=== PATIENT | female | born 1955 | race Caucasian/White ===

== ENCOUNTER → 2017-03-04 | Outpatient (CLI) | payer MEDICARE, MEDICAID, SELFPAY | PROVIDERS: Visit Provider Surgery | DX: K43.2 Incisional hernia without obstruction or gangrene (principal) | CPT/HCPCS: 36415; 82565; 84520 ==

== ENCOUNTER → 2017-03-05 | Outpatient (CLI) | payer MEDICARE, MEDICAID, SELFPAY | PROVIDERS: Visit Provider Surgery | DX: K43.2 Incisional hernia without obstruction or gangrene (principal) | CPT/HCPCS: 74177; Q9967 ==

== ENCOUNTER → 2017-04-29 10:41 | Outpatient (REF) | payer MEDICARE, SELFPAY ==
[2017-04-29 14:09] LABS: Amphetamine/Metha Screen,Urine Negative ng/mL (<1000); Barbiturates Screen,Urine Negative ng/mL (<200); Benzodiazepines Screen,Urine Negative ng/mL (200); Cannabinoid Screen,Urine Negative ng/mL (<50); Cocaine Screen,Urine Negative ng/g (<300); Methadone Screen,Urine Negative ng/mL (<300); Opiate Screen,Urine Negative ng/mL (<300); Phencyclidine Screen,Urine Negative ng/mL (<25)
== END ==
LOC: LAB 10:41
PROVIDERS: Visit Provider Emergency Medicine
DX: Z79.899 Other long term (current) drug therapy (principal)
CPT/HCPCS: 80305

== ENCOUNTER → 2017-05-20 14:55 | Outpatient (POV) | payer MEDICARE, SELFPAY | PROVIDERS: Family Provider Emergency Medicine; PCP Emergency Medicine; Visit Provider Internal Medicine | DX: Z00.00 Encounter for general adult medical examination without abnormal findings (principal) ==

== ENCOUNTER → 2017-06-02 12:39 | Outpatient (CLI) | payer MEDICARE, MEDICAID, SELFPAY ==
[2017-06-02 13:51] VITALS: PULSE 84; PULSE 85
== END ==
PROVIDERS: Family Provider Emergency Medicine; PCP Emergency Medicine; Visit Provider Internal Medicine
DX: R06.02 Shortness of breath (principal); J42 Unspecified chronic bronchitis; F17.210 Nicotine dependence, cigarettes, uncomplicated
CPT/HCPCS: 94060; 94640; 94726; 94729

== ENCOUNTER → 2017-07-25 10:01 | Outpatient (CLI) | payer MEDICARE, MEDICAID, SELFPAY ==
[2017-07-25 14:16] LABS: Amphetamine/Metha Screen,Urine Negative ng/mL (<1000); Barbiturates Screen,Urine Negative ng/mL (<200); Benzodiazepines Screen,Urine Negative ng/mL (200); Cannabinoid Screen,Urine Negative ng/mL (<50); Cocaine Screen,Urine Negative ng/g (<300); Methadone Screen,Urine Negative ng/mL (<300); Opiate Screen,Urine Negative ng/mL (<300); Phencyclidine Screen,Urine Negative ng/mL (<25)
== END ==
PROVIDERS: Visit Provider Emergency Medicine
DX: Z79.899 Other long term (current) drug therapy (principal)
CPT/HCPCS: 80305

== ENCOUNTER → 2017-08-22 14:32 | Outpatient (CLI) | payer MEDICARE, MEDICAID, SELFPAY | PROVIDERS: Visit Provider Nurse Practitioner Family | DX: R10.9 Unspecified abdominal pain (principal) | CPT/HCPCS: 87086 ==

== ENCOUNTER → 2017-09-09 10:40 | Outpatient (REF) | payer MEDICARE, SELFPAY ==
[2017-09-09 14:05] LABS: Basophils # 0.1 K/mm3 (0-0.2); Basophils % 0.9 % (0.1-2.0); Eosinophils # 0.3 K/mm3 (0.0-0.4); Eosinophils % 2.8 % (0.1-12.0); Hematocrit 45.4 % (37.0-47.0); Hemoglobin 14.1 g/dL (12.2-16.2); Lymphocytes # 2.2 K/mm3 (0.7-4.5); Lymphocytes % 23.9 K/mm3 (10-50); Mean Corpuscular Hemoglobin 27.6 pg (27.0-31.2); Mean Corpuscular Volume 88.9 fl (81-99); Mean Platelet Volume 9.6 fl (7.4-10.4); Monocytes # 0.4 K/mm3 (0.1-1.0); Monocytes % 4.6 % (1.7-9.3); Neutrophils # 6.1 K/mm3 (1.8-7.8); Neutrophils % 67.9 % (37.0-80.0); Platelet Count 210 K/mm3 (142-424); Red Blood Count 5.11 M/mm3 (4.20-5.40); Red Cell Distribution Width 12.6 % (11.5-17.5)
[2017-09-09 14:29] LABS: Alanine Aminotransferase 17 U/L (12-78); Albumin/Globulin Ratio 1.1 (1.1-1.8); Alkaline Phosphatase 107 U/L (46-116); Anion Gap 12.1 mEq/L (5-15); Aspartate Amino Transferase 15 U/L (15-37); Bilirubin,Total 0.3 mg/dL (0.2-1.0); Blood Urea Nitrogen 15 mg/dL (7-18); Calcium 9.1 mg/dL (8.5-10.1); Carbon Dioxide 28 mmol/L (21.0-32.0); Chloride 107 mmol/L (98-107); Creatinine,Serum 1.04 mg/dL (0.55-1.02); Estimated Glomerular Filt Rate 53 ml/min (>60); Free T4 (Free Thyroxine) 1.37 ng/dl (0.76-1.46); GFR (African American) 65 ML/MIN (>60); Globulin 3.8 gm/dl (1.3-3.2); Glucose 91 mg/dL (74-106); Potassium 4.1 mmoL/L (3.5-5.1); Sodium 143 mmol/L (136-145); Thyroid Stimulating Hormone 6.28 uIU/ml (0.358-3.740); Total Protein,Serum 7.8 gm/dL (6.4-8.2)
[2017-09-09 15:17] LABS: Erythrocyte Sedimentation Rate 17 mm/hr (0-30)
== END ==
LOC: LAB 10:40
PROVIDERS: Visit Provider Emergency Medicine
DX: J44.9 Chronic obstructive pulmonary disease, unspecified (principal); E03.9 Hypothyroidism, unspecified
CPT/HCPCS: 80053; 82652; 84439; 84443; 85025; 85651

== ENCOUNTER → 2017-10-31 12:45 | Outpatient (CLI) | payer MEDICARE, MEDICAID, SELFPAY ==
--- NOTE | 2017-10-31 12:48 | CT_ITS ---
CT lung screening EXAM: CT LUNG LOW DOSE WO CONTRAST HISTORY: Chronic tobacco use, asymptomatic ITS.REASON: CURRENT TOBACCO USE ORDERING PHYSICIAN: Wilbur Ybarra MD PATIENT AGE: 62 years COMPARISON: 10/31/2017 TECHNIQUE: The exam was performed on a GE Light Speed [address] scanner using 2.90 mGy CTDI. A low dose helical CT CHEST was performed on a multi-detector scanner. All CT scans at the facility use one or more dose reduction, viz: automated exposure control, ma/kV adjustment per patient size (including targeted exams where dose is matched to indication, i.e. head), or iterative reconstruction technique. The LDCT was performed in a facility that meets the criteria for the screening program. Data regarding this exam was submitted to ACR which is an approved registry. The order for this exam indicates that it came as a result of a lung cancer screening counseling shard decision-making visit that included all the elements required of such a visit including smoking cessation. The radiologist interpreting this exam meets the CMS criteria for the LDCT lung cancer screening program. The exam is reported using the Lung-RADS classification scale and reported to the ACR registry. NOTE: This study was performed for the specific purposes of lung cancer screening and is not an alternative to diagnostic chest CT. RADIATION DOSE: CTDI vol(CT dose Index-volume) = 2.90mG DLP (Dose Length Product) = 102.00 mGcm FINDINGS: Centrilobular emphysema with chronic coarsening of the bronchovascular markings. No change 2 mm nodular opacity right upper lobe, 3 mm nodule right lower lobe, calcified granuloma left upper lobe. No new nodules. No lobar consolidation or collapse. There is a 9 mm isodensity junction of the right and left hepatic lobe superiorly which may represent a hepatic cyst. IMPRESSION: 1. Lung RADS Category: 2, benign 2. Other findings: Centrilobular emphysema, old granulomatous disease RECOMMENDATIONS: 12 month LDCT follow-up
== END ==
PROVIDERS: PCP Emergency Medicine; Visit Provider Internal Medicine
DX: Z12.2 Encounter for screening for malignant neoplasm of respiratory organs (principal); Z87.891 Personal history of nicotine dependence

== ENCOUNTER → 2017-11-24 13:14 | Outpatient (CLI) | payer MEDICARE, MEDICAID, SELFPAY ==
[2017-11-24 15:19] LABS: Free T4 (Free Thyroxine) 1.49 ng/dl (0.76-1.46)
== END ==
PROVIDERS: Family Provider Emergency Medicine; PCP Emergency Medicine; Visit Provider Otolaryngology
DX: E03.9 Hypothyroidism, unspecified (principal)
CPT/HCPCS: 36415; 84439; 84443

== ENCOUNTER → 2017-11-26 13:54 | Outpatient (CLI) | payer MEDICARE, MEDICAID, SELFPAY ==
[2017-11-26 18:58] LABS: Amphetamine/Metha Screen,Urine Negative ng/mL (<1000); Barbiturates Screen,Urine Negative ng/mL (<200); Benzodiazepines Screen,Urine Negative ng/mL (<200); Cannabinoid Screen,Urine Negative ng/mL (<50); Cocaine Screen,Urine Negative ng/mL (<300); Methadone Screen,Urine Negative ng/mL (<300); Opiate Screen,Urine Negative ng/mL (<300); Phencyclidine Screen,Urine Negative ng/mL (<25)
== END ==
PROVIDERS: Visit Provider Emergency Medicine
DX: Z79.899 Other long term (current) drug therapy (principal)
CPT/HCPCS: 80305

== ENCOUNTER → 2017-12-02 13:37 | Outpatient (POV) | payer MEDICARE, MEDICAID, SELFPAY | PROVIDERS: Family Provider Emergency Medicine; PCP Emergency Medicine; Visit Provider Internal Medicine | DX: Z00.00 Encounter for general adult medical examination without abnormal findings (principal) ==

== ENCOUNTER → 2018-02-25 18:56 | Outpatient (CLI) | payer MEDICARE, MEDICAID, SELFPAY ==
[2018-02-25 22:36] LABS: Amphetamine/Metha Screen,Urine Negative ng/mL (<1000); Barbiturates Screen,Urine Negative ng/mL (<200); Benzodiazepines Screen,Urine Negative ng/mL (<200); Cannabinoid Screen,Urine Positive ng/mL (<50); Cocaine Screen,Urine Negative ng/mL (<300); Methadone Screen,Urine Negative ng/mL (<300); Opiate Screen,Urine Negative ng/mL (<300); Phencyclidine Screen,Urine Negative ng/mL (<25)
[2018-03-03 14:14] LABS: Alprazolam Negative (Cutoff=100); Benzodiazepines Positive ng/mL (Cutoff=100); Clonazepam Positive (.); Flurazepam Negative (Cutoff=100); Lorazepam Negative (Cutoff=100); Midazolam Negative (Cutoff=100); Temazepam Negative (Cutoff=100); Triazolam Negative (Cutoff=100)
[2018-03-04 06:17] LABS: Clonazepam Confirm 533 ng/mL (Cutoff=100)
== END ==
PROVIDERS: Visit Provider Emergency Medicine
DX: Z79.899 Other long term (current) drug therapy (principal)
CPT/HCPCS: 80305; 80346

== ENCOUNTER → 2018-04-13 17:37 | Outpatient (CLI) | payer MEDICARE, MEDICAID, SELFPAY ==
[2018-04-13 18:46] LABS: Amphetamine/Metha Screen,Urine Negative ng/mL (<1000); Barbiturates Screen,Urine Negative ng/mL (<200); Benzodiazepines Screen,Urine Negative ng/mL (<200); Cannabinoid Screen,Urine Negative ng/mL (<50); Cocaine Screen,Urine Positive ng/mL (<300); Methadone Screen,Urine Negative ng/mL (<300); Opiate Screen,Urine Negative ng/mL (<300); Phencyclidine Screen,Urine Negative ng/mL (<25)
[2018-04-18 10:11] LABS: Alprazolam Negative (Cutoff=100); Benzodiazepines Negative ng/mL (Cutoff=100); Clonazepam Negative (Cutoff=100); Flurazepam Negative (Cutoff=100); Lorazepam Negative (Cutoff=100); Midazolam Negative (Cutoff=100); Temazepam Negative (Cutoff=100); Triazolam Negative (Cutoff=100)
== END ==
PROVIDERS: Visit Provider Emergency Medicine
DX: Z79.899 Other long term (current) drug therapy (principal)
CPT/HCPCS: 80305; 80346

== ENCOUNTER → 2018-05-15 16:07 | Outpatient (CLI) | payer MEDICARE, MEDICAID, SELFPAY ==
[2018-05-15 18:10] LABS: Amphetamine/Metha Screen,Urine Negative ng/mL (<1000); Barbiturates Screen,Urine Negative ng/mL (<200); Benzodiazepines Screen,Urine Negative ng/mL (<200); Cannabinoid Screen,Urine Negative ng/mL (<50); Cocaine Screen,Urine Negative ng/mL (<300); Methadone Screen,Urine Negative ng/mL (<300); Opiate Screen,Urine Negative ng/mL (<300); Phencyclidine Screen,Urine Negative ng/mL (<25)
== END ==
PROVIDERS: Visit Provider Emergency Medicine
DX: Z79.899 Other long term (current) drug therapy (principal)
CPT/HCPCS: 80305

== ENCOUNTER → 2018-07-08 08:39 | Outpatient (CLI) | payer MEDICARE, MEDICAID, SELFPAY ==
--- NOTE | 2018-07-08 08:58 | MM_ITS ---
MM Dig screening mamm BI w/CAD CAD Screening COMPARISON: Digital mammograms with CAD 12/24/2016 and 11/01/2013 INDICATION: There is no personal or family history of breast cancer TECHNIQUE: Standard CC and MLO images were obtained. R2 CAD reviewed. FINDINGS: Diffuse heterogenic fibroglandular densities are seen throughout both breasts. There are few benign-appearing micro and macrocalcifications in each breast. There is a mole marker left breast. There is no suspicious lesion and there are no suspicious microcalcifications. IMPRESSION: Moderate diffuse breast density with no suspicious lesion seen BI-RADS Category: 2 Benign Finding(s) RECOMMENDED FOLLOW-UP: 1YR - 1 YEAR FOLLOW-UP (A letter has been sent to the patient regarding results of the study.)
== END ==
PROVIDERS: PCP Emergency Medicine; Visit Provider Emergency Medicine
DX: Z12.31 Encounter for screening mammogram for malignant neoplasm of breast (principal)
CPT/HCPCS: 77067

== ENCOUNTER → 2018-08-11 08:09 | Outpatient (CLI) | payer MEDICARE, MEDICAID, SELFPAY ==
[2018-08-12 13:10] LABS: Amphetamine/Metha Screen,Urine Negative ng/mL (<1000); Barbiturates Screen,Urine Negative ng/mL (<200); Benzodiazepines Screen,Urine Negative ng/mL (<200); Cannabinoid Screen,Urine Negative ng/mL (<50); Cocaine Screen,Urine Negative ng/mL (<300); Methadone Screen,Urine Negative ng/mL (<300); Opiate Screen,Urine Negative ng/mL (<300); Phencyclidine Screen,Urine Negative ng/mL (<25)
[2018-08-17 10:19] LABS: Alprazolam Negative (Cutoff=100); Benzodiazepines Positive ng/mL (Cutoff=100); Clonazepam Positive (.); Flurazepam Negative (Cutoff=100); Lorazepam Negative (Cutoff=100); Midazolam Negative (Cutoff=100); Temazepam Negative (Cutoff=100); Triazolam Negative (Cutoff=100)
[2018-08-18 09:48] LABS: Clonazepam Confirm 183 ng/mL (Cutoff=100)
== END ==
PROVIDERS: Visit Provider Emergency Medicine
DX: Z79.899 Other long term (current) drug therapy (principal)
CPT/HCPCS: 80305; 80346

== ENCOUNTER → 2018-11-10 14:02 | Outpatient (CLI) | payer MEDICARE, MEDICAID, SELFPAY ==
[2018-11-10 14:59] LABS: Basophils # 0.1 K/mm3 (0-0.2); Basophils % 0.7 % (0.1-2.0); Eosinophils # 0.1 K/mm3 (0.0-0.4); Eosinophils % 1.2 % (0.1-12.0); Hematocrit 44.4 % (37.0-47.0); Hemoglobin 14.6 g/dL (12.2-16.2); Lymphocytes # 2.7 K/mm3 (0.7-4.5); Lymphocytes % 23.9 % (10-50); Mean Corpuscular HGB Conc 32.8 g/dL (31.8-35.4); Mean Corpuscular Hemoglobin 28.7 pg (27.0-31.2); Mean Corpuscular Volume 87.6 fl (81-99); Mean Platelet Volume 9.3 fl (7.4-10.4); Monocytes # 0.7 K/mm3 (0.1-1.0); Monocytes % 5.9 % (1.7-9.3); Neutrophils # 7.7 K/mm3 (1.8-7.8); Neutrophils % 68.2 % (37.0-80.0); Platelet Count 235 K/mm3 (142-424); Red Blood Count 5.07 M/mm3 (4.20-5.40); Red Cell Distribution Width 13.4 % (11.5-17.5); White Blood Count 11.3 K/mm3 (4.8-10.8)
[2018-11-10 15:11] LABS: Alanine Aminotransferase 24 U/L (12-78); Albumin Level 4.3 gm/dL (3.4-5.0); Albumin/Globulin Ratio 1.2 (1.1-1.8); Alkaline Phosphatase 91 U/L (46-116); Anion Gap 14.4 mEq/L (5-15); Aspartate Amino Transferase 22 U/L (15-37); Bilirubin,Total 0.5 mg/dL (0.2-1.0); Blood Urea Nitrogen 15 mg/dL (7-18); Calcium 9.5 mg/dL (8.5-10.1); Carbon Dioxide 27 mmol/L (21.0-32.0); Chloride 105 mmol/L (98-107); Chol/HDL Ratio 4.4 (1-3.5); Cholesterol 194 mg/dL (140-200); Creatinine,Serum 1.23 mg/dL (0.55-1.02); Estimated Glomerular Filt Rate 44 ml/min (>60); Free T4 (Free Thyroxine) 1.72 ng/dl (0.76-1.46); GFR (African American) 53 ML/MIN (>60); Globulin 3.7 gm/dl (1.3-3.2); Glucose 116 mg/dL (74-106); HDL Cholesterol 44 mg/dL (29-89); LDL Cholesterol 122 mg/dL (0-130); Potassium 4.4 mmoL/L (3.5-5.1); Sodium 142 mmol/L (136-145); Triglycerides 140 mg/dL (30-200); VLDL Cholesterol 28 mg/dL (0-40)
[2018-11-10 15:58] LABS: Erythrocyte Sedimentation Rate 14 mm/hr (0-30)
[2018-11-10 16:28] LABS: Amphetamine/Metha Screen,Urine Negative ng/mL (<1000); Barbiturates Screen,Urine Negative ng/mL (<200); Benzodiazepines Screen,Urine Negative ng/mL (<200); Cannabinoid Screen,Urine Negative ng/mL (<50); Cocaine Screen,Urine Negative ng/mL (<300); Methadone Screen,Urine Negative ng/mL (<300); Opiate Screen,Urine Negative ng/mL (<300); Phencyclidine Screen,Urine Negative ng/mL (<25)
[2018-11-11 09:50] LABS: Vitamin D 25 Hydroxy 30.9 ng/mL (30.0-100.0)
== END ==
PROVIDERS: Visit Provider Emergency Medicine
DX: R53.83 Other fatigue (principal); Z79.899 Other long term (current) drug therapy
CPT/HCPCS: 80053; 80061; 80305; 82652; 84439; 84443; 85025; 85651

== ENCOUNTER → 2018-11-25 14:15 | Outpatient (CLI) | payer MEDICARE, MEDICAID, SELFPAY ==
--- NOTE | 2018-11-25 14:18 | CT_ITS ---
PROCEDURE: CT LUNG SCREENING CLINICAL INDICATION: CURRENT TOBACCO USE Fifty pack-year smoking history, asymptomatic for lung cancer COMPARISON: LUNGSCREEN CT lung screening from 10/31/2017 TECHNIQUE: The exam was performed on a GE Light Speed [address] scanner using 2.90 mGy CTDI. A low dose helical CT CHEST was performed on a multi-detector scanner. All CT scans at the facility use one or more dose reduction, viz: automated exposure control, ma/kV adjustment per patient size (including targeted exams where dose is matched to indication, i.e. head), or iterative reconstruction technique. The LDCT was performed in a facility that meets the criteria for the screening program. Data regarding this exam was submitted to ACR which is an approved registry. The order for this exam indicates that it came as a result of a lung cancer screening counseling shard decision-making visit that included all the elements required of such a visit including smoking cessation. The radiologist interpreting this exam meets the CMS criteria for the LDCT lung cancer screening program. The exam is reported using the Lung-RADS classification scale and reported to the ACR registry. NOTE: This study was performed for the specific purposes of lung cancer screening and is not an alternative to diagnostic chest CT. RADIATION DOSE: CTDI vol(CT dose Index-volume) = 2.90mG DLP (Dose Length Product) = 94.55 mGcm FINDINGS: COPD/centrilobular emphysema. Old granulomatous disease. Calcified granuloma left upper lobe. Scattered areas of scarring. Stable 4 mm nodule right upper lobe centrally image 37 series 4. Stable 3 mm nodule right upper lobe anterior laterally image 42 series 4 the. Stable 4 mm nodule right lower lobe laterally image 52 series or. Stable 4 mm nodule left lower lobe posterior laterally image 61 series 4 OTHER FINDINGS: No other pertinent findings evident. IMPRESSION: Lung rads category 2 benign findings Recommend 12 month LDCT follow-up Dictated by: Noe Hollis MD 11/29/2018 07:59 Electronically signed by Noe Hollis MD in [place] 11/29/2018 07:59
== END ==
PROVIDERS: PCP Emergency Medicine; Visit Provider Internal Medicine
DX: Z87.891 Personal history of nicotine dependence (principal); Z12.2 Encounter for screening for malignant neoplasm of respiratory organs

== ENCOUNTER → 2019-01-04 15:35 | Outpatient (CLI) | payer MEDICARE, MEDICAID, SELFPAY ==
--- NOTE | 2019-01-04 15:43 | XR_ITS ---
PROCEDURE: XR CHEST 2V CLINICAL HISTORY: Cough, chest tightness COMPARISON: [facility] CT CHEST W/O CONTRAST from 08/16/2015 CXR CHEST(2 VIEWS-NOT PORTABLE) from 11/14/2015 CXR CHEST(2 VIEWS-NOT PORTABLE) from 08/02/2016 CXR CHEST(2 VIEWS-NOT PORTABLE) from 09/03/2016 FINDINGS: The cardiomediastinal silhouette and pulmonary vascularity are within normal limits. The lungs are clear without infiltrates, suspicious nodules, or pleural effusions. No acute bony abnormalities. IMPRESSION: No acute findings. Dictated by: Noe Hollis MD 01/04/2019 16:00 Electronically signed by Noe Hollis MD in [place] 01/04/2019 16:00
[2019-01-04 15:54] LABS: Basophils # 0.1 K/mm3 (0-0.2); Basophils % 0.7 % (0.1-2.0); Eosinophils # 0.3 K/mm3 (0.0-0.4); Eosinophils % 2.4 % (0.1-12.0); Hematocrit 44.2 % (37.0-47.0); Hemoglobin 14.2 g/dL (12.2-16.2); Lymphocytes # 2.8 K/mm3 (0.7-4.5); Lymphocytes % 26.4 % (10-50); Mean Corpuscular HGB Conc 32.1 g/dL (31.8-35.4); Mean Corpuscular Hemoglobin 28.5 pg (27.0-31.2); Mean Corpuscular Volume 88.7 fl (81-99); Mean Platelet Volume 8.5 fl (7.4-10.4); Monocytes # 0.7 K/mm3 (0.1-1.0); Monocytes % 6.2 % (1.7-9.3); Neutrophils # 6.9 K/mm3 (1.8-7.8); Neutrophils % 64.4 % (37.0-80.0); Platelet Count 234 K/mm3 (142-424); Red Blood Count 4.98 M/mm3 (4.20-5.40); Red Cell Distribution Width 13.3 % (11.5-17.5); White Blood Count 10.7 K/mm3 (4.8-10.8)
[2019-01-04 17:27] LABS: Alanine Aminotransferase 16 U/L (12-78); Albumin Level 3.5 gm/dL (3.4-5.0); Alkaline Phosphatase 107 U/L (46-116); Anion Gap -0.4 mEq/L (5-15); Aspartate Amino Transferase 12 U/L (15-37); Bilirubin,Total 0.2 mg/dL (0.2-1.0); Blood Urea Nitrogen 16 mg/dL (7-18); Carbon Dioxide 26 mmol/L (21.0-32.0); Chloride 113 mmol/L (98-107); Chol/HDL Ratio 5.5 (1-3.5); Cholesterol 203 mg/dL (140-200); Estimated Glomerular Filt Rate 45 ml/min (>60); GFR (African American) 55 ML/MIN (>60); Globulin 3.6 gm/dl (1.3-3.2); Glucose 114 mg/dL (74-106); HDL Cholesterol 37 mg/dL (29-89); LDL Cholesterol 98 mg/dL (0-130); Potassium 3.6 mmoL/L (3.5-5.1); Sodium 135 mmol/L (136-145); Thyroid Stimulating Hormone 3.46 uIU/ml (0.358-3.740); Total Protein,Serum 7.1 gm/dL (6.4-8.2); Triglycerides 339 mg/dL (30-200); VLDL Cholesterol 68 mg/dL (0-40)
[2019-01-06 08:25] LABS: Vitamin D 25 Hydroxy 21.3 ng/mL (30.0-100.0)
== END ==
PROVIDERS: Visit Provider Physician Assistant
DX: E03.9 Hypothyroidism, unspecified (principal); R05 Cough; J06.9 Acute upper respiratory infection, unspecified; E55.9 Vitamin D deficiency, unspecified
CPT/HCPCS: 36415; 71046; 80053; 80061; 82652; 84443; 85025

== ENCOUNTER → 2019-02-08 13:25 | Outpatient (CLI) | payer MEDICARE, MEDICAID, SELFPAY ==
[2019-02-08 15:29] LABS: Amphetamine/Metha Screen,Urine Negative ng/mL (<1000); Barbiturates Screen,Urine Negative ng/mL (<200); Benzodiazepines Screen,Urine Negative ng/mL (<200); Cannabinoid Screen,Urine Negative ng/mL (<50); Cocaine Screen,Urine Negative ng/mL (<300); Methadone Screen,Urine Negative ng/mL (<300); Opiate Screen,Urine Negative ng/mL (<300); Phencyclidine Screen,Urine Negative ng/mL (<25)
[2019-02-17 05:08] LABS: Alprazolam Negative (Cutoff=100); Benzodiazepines Positive ng/mL (Cutoff=100); Clonazepam Positive (.); Flurazepam Negative (Cutoff=100); Lorazepam Negative (Cutoff=100); Midazolam Negative (Cutoff=100); Temazepam Negative (Cutoff=100); Triazolam Negative (Cutoff=100)
[2019-02-17 14:09] LABS: Clonazepam Confirm 163 ng/mL (Cutoff=100)
== END ==
PROVIDERS: Visit Provider Emergency Medicine
DX: Z79.899 Other long term (current) drug therapy (principal); F41.9 Anxiety disorder, unspecified
CPT/HCPCS: 80305; 80346

== ENCOUNTER → 2019-02-16 11:58 | Outpatient (CLI) | payer MEDICARE, MEDICAID, SELFPAY ==
--- NOTE | 2019-02-16 12:01 | XR_ITS ---
PROCEDURE: XR CHEST 2V CLINICAL HISTORY: cough Cough, runny nose, smoker COMPARISON: [facility] CT CHEST W/O CONTRAST from 08/16/2015 CXR CHEST(2 VIEWS-NOT PORTABLE) from 08/02/2016 CXR CHEST(2 VIEWS-NOT PORTABLE) from 09/03/2016 XR CHEST 2V from 01/04/2019 FINDINGS: The cardiomediastinal silhouette and pulmonary vascularity are within normal limits. The lungs are clear without infiltrates, suspicious nodules, or pleural effusions. There are degenerative changes in the lower thoracic spine. IMPRESSION: No acute findings. Dictated by: Noe Hollis MD 02/16/2019 15:59 Electronically signed by Noe Hollis MD in [place] 02/16/2019 15:59
== END ==
PROVIDERS: PCP Emergency Medicine; Visit Provider Nurse Practitioner Family
DX: J44.9 Chronic obstructive pulmonary disease, unspecified (principal)
CPT/HCPCS: 71046

== ENCOUNTER → 2019-03-29 14:10 | Outpatient (POV) | payer MEDICARE, MEDICAID, SELFPAY | PROVIDERS: Visit Provider Internal Medicine Nephrology | DX: Z00.00 Encounter for general adult medical examination without abnormal findings (principal) ==

== ENCOUNTER → 2019-04-02 13:06 | Outpatient (CLI) | payer MEDICARE, MEDICAID, SELFPAY ==
[2019-04-02 13:15] LABS: Microscopic, Urine URINE MICROSCOPIC (MICROSCOPIC)
[2019-04-02 14:05] LABS: Basophils # 0.1 K/mm3 (0-0.2); Basophils % 1.2 % (0.1-2.0); Eosinophils # 0.2 K/mm3 (0.0-0.4); Eosinophils % 2.5 % (0.1-12.0); Hematocrit 43.1 % (37.0-47.0); Lymphocytes # 2.4 K/mm3 (0.7-4.5); Lymphocytes % 26.6 % (10-50); Mean Corpuscular HGB Conc 32.5 g/dL (31.8-35.4); Mean Corpuscular Hemoglobin 28.9 pg (27.0-31.2); Mean Corpuscular Volume 88.9 fl (81-99); Mean Platelet Volume 9.6 fl (7.4-10.4); Monocytes # 0.5 K/mm3 (0.1-1.0); Monocytes % 5.3 % (1.7-9.3); Neutrophils # 5.9 K/mm3 (1.8-7.8); Neutrophils % 64.5 % (37.0-80.0); Platelet Count 192 K/mm3 (142-424); Red Blood Count 4.84 M/mm3 (4.20-5.40); Red Cell Distribution Width 13.3 % (11.5-17.5); White Blood Count 9.2 K/mm3 (4.8-10.8)
[2019-04-02 15:10] LABS: Albumin Level 3.7 gm/dL (3.4-5.0); Anion Gap 13.5 mEq/L (5-15); Blood Urea Nitrogen 15 mg/dL (7-18); Calcium 8.5 mg/dL (8.5-10.1); Carbon Dioxide 25 mmol/L (21.0-32.0); Chloride 104 mmol/L (98-107); Estimated Glomerular Filt Rate 45 ml/min (>60); GFR (African American) 55 ML/MIN (>60); Glucose 161 mg/dL (74-106); Potassium 3.5 mmoL/L (3.5-5.1); Sodium 139 mmol/L (136-145)
[2019-04-02 15:34] LABS: Appearance,Urine CLEAR (Clear); Bilirubin,Urine Negative (Negative); Blood, Urine 1+ (Negative); Color,Urine YELLOW (Yellow); Glucose,Urine (UA) Negative (Negative); Ketones,Urine Negative (Negative); Leukocyte Esterase,Urine Negative (Negative); Nitrate,Urine Negative (Negative); PH,Urine 5.5 (5.0-8.5); Protein,Urine Negative (Negative); Specific Gravity, Urine 1.025 (1.005-1.030); Urobilinogen,Urine 0.2 EU/dl (0.2)
[2019-04-02 15:54] LABS: Creatinine,Urine Random 94 mg/dL (20-320); Total Protein,Urine Random 8.8 mg/dL (0.0-11.9)
[2019-04-03 11:04] LABS: Vitamin D 25 Hydroxy 22.9 ng/mL (30.0-100.0)
[2019-04-03 15:15] LABS: Parathyroid Hormone Intact 24 pg/mL (15-65)
== END ==
PROVIDERS: Visit Provider Internal Medicine Nephrology
DX: N18.3 Chronic kidney disease, stage 3 (moderate) (principal)
CPT/HCPCS: 36415; 80069; 81001; 82570; 82652; 83970; 84155; 85025

== ENCOUNTER → 2019-04-15 12:50 | Outpatient (CLI) | payer MEDICARE, MEDICAID, SELFPAY ==
--- NOTE | 2019-04-15 12:51 | US_ITS ---
PROCEDURE: US KIDNEY CLINICAL INDICATION: CKD 3 Chronic renal disease COMPARISON: No exams were available for comparison FINDINGS: The right kidney is [id number]. No hydronephrosis, cortical thinning, or renal mass or perinephric fluid collection is evident. The left kidney is [id number]. No hydronephrosis, cortical thinning, or renal mass or perinephric fluid collection is evident. IMPRESSION: Unremarkable bilateral renal ultrasound Dictated by: Noe Hollis MD 04/15/2019 17:25 Electronically signed by Noe Hollis MD in [place] 04/15/2019 17:27
== END ==
PROVIDERS: PCP Emergency Medicine; Visit Provider Internal Medicine Nephrology
DX: N18.3 Chronic kidney disease, stage 3 (moderate) (principal)
CPT/HCPCS: 76770

== ENCOUNTER → 2019-05-07 14:33 | Outpatient (CLI) | payer MEDICARE, SELFPAY | PROVIDERS: Visit Provider Emergency Medicine | DX: F41.9 Anxiety disorder, unspecified (principal); J44.9 Chronic obstructive pulmonary disease, unspecified; Z72.0 Tobacco use; E03.9 Hypothyroidism, unspecified ==

== ENCOUNTER → 2019-07-27 09:21 | Outpatient (CLI) | payer MEDICARE, MEDICAID, SELFPAY ==
--- NOTE | 2019-07-27 09:22 | MM_ITS ---
PROCEDURE: MM DIG SCREENING MAMM BI W/CAD Digital Breast Tomosynthesis Included CLINICAL INDICATION: screening There is a history of breast cancer patient's half sister. COMPARISON: [facility] DIG MAMM-SCREEN SUSAN from 11/01/2013 [facility] DIG MAMM-SCREEN SUSAN W/CAD from 12/24/2016 [facility] MM Dig screening mamm BI w/CAD from 07/08/2018 TECHNIQUE: Standard CC and MLO images and 3D Tomosynthesis was obtained. R2 CAD reviewed. FINDINGS: Moderate heterogenic fibroglandular densities are seen in both breasts. There is a mole marker on each breast. There are few benign-appearing calcifications right breast there is no suspicious lesion and no suspicious microcalcifications. IMPRESSION: Moderate breast density with no suspicious lesions seen BI-RAD Category: 2 Benign Finding(s) FOLLOW-UP: 1YR 1 Year Follow-up (A letter has been sent to the patient regarding results of the study.) Dictated by: Dr. Solitario Lamar MD 07/27/2019 15:[address] Solitario Lamar MD in [place] 07/27/2019 15:23
== END ==
PROVIDERS: PCP Emergency Medicine; Visit Provider Emergency Medicine
DX: Z12.31 Encounter for screening mammogram for malignant neoplasm of breast (principal)
CPT/HCPCS: 77063; 77067

== ENCOUNTER → 2019-12-16 14:03 | Outpatient (CLI) | payer MEDICARE, MEDICAID, SELFPAY ==
[2019-12-16 15:12] LABS: Free T4 (Free Thyroxine) 1.83 ng/dl (0.78-2.19)
[2019-12-16 15:27] LABS: Thyroid Stimulating Hormone 1.93 uIU/mL (0.465-4.68)
== END ==
PROVIDERS: Visit Provider Otolaryngology
DX: E03.9 Hypothyroidism, unspecified (principal)
CPT/HCPCS: 36415; 84439; 84443

== ENCOUNTER → 2020-02-22 14:59 | Outpatient (CLI) | payer MEDICARE, MEDICAID, SELFPAY ==
[2020-02-24 12:34] LABS: Covid-19 Nasal PCR Sendout Lex Not Detected
== END ==
PROVIDERS: PCP Nurse Practitioner Family; Visit Provider Nurse Practitioner Family
DX: Z03.818 Encounter for observation for suspected exposure to other biological agents ruled out (principal)
CPT/HCPCS: U0004

== ENCOUNTER → 2020-03-08 14:51 | Outpatient (CLI) | payer MEDICARE, MEDICAID, SELFPAY ==
[2020-03-08 15:10] LABS: Basophils # 0.1 K/mm3 (0-0.2); Basophils % 1.1 % (0.1-2.0); Eosinophils # 0.4 K/mm3 (0.0-0.4); Eosinophils % 4.5 % (0.1-12.0); Hematocrit 42.4 % (37.0-47.0); Hemoglobin 13.6 g/dL (12.2-16.2); Lymphocytes # 2.7 K/mm3 (0.7-4.5); Lymphocytes % 30.3 % (10-50); Mean Corpuscular HGB Conc 32.1 g/dL (31.8-35.4); Mean Corpuscular Hemoglobin 29.5 pg (27.0-31.2); Mean Platelet Volume 9.3 fl (7.4-10.4); Monocytes # 0.4 K/mm3 (0.1-1.0); Monocytes % 4.3 % (1.7-9.3); Neutrophils # 5.4 K/mm3 (1.8-7.8); Neutrophils % 59.9 % (37.0-80.0); Platelet Count 317 K/mm3 (142-424); Red Blood Count 4.61 M/mm3 (4.20-5.40); Red Cell Distribution Width 14.4 % (11.5-17.5); White Blood Count 8.9 K/mm3 (4.8-10.8)
[2020-03-08 15:17] LABS: Chol/HDL Ratio 3.3 (1-3.5); Cholesterol 185 mg/dl (140-200); HDL Cholesterol 56 mg/dl (40-60); Triglycerides 106 mg/dl (30-150); VLDL Cholesterol 21 mg/dL (0-40)
[2020-03-08 15:35] LABS: T4 (Thyroxine) 16.1 ug/dl (5.53-11.0)
[2020-03-08 15:36] LABS: 25-OH Vitamin D, Total 33.3 ng/mL (30-100)
[2020-03-08 15:48] LABS: Thyroid Stimulating Hormone 1.14 uIU/mL (0.465-4.68)
== END ==
PROVIDERS: Visit Provider Nurse Practitioner Family
DX: E03.9 Hypothyroidism, unspecified (principal); E78.5 Hyperlipidemia, unspecified; J06.9 Acute upper respiratory infection, unspecified; J44.9 Chronic obstructive pulmonary disease, unspecified; R53.83 Other fatigue; Z72.0 Tobacco use; E55.9 Vitamin D deficiency, unspecified
CPT/HCPCS: 80061; 82306; 84436; 84443; 85025

== ENCOUNTER → 2020-08-30 10:01 | Outpatient (CLI) | payer MEDICARE, MEDICAID, SELFPAY ==
--- NOTE | 2020-08-30 10:01 | MM_ITS ---
PROCEDURE: MM DIG SCREENING MAMM BI W/CAD Digital Breast Tomosynthesis Included CLINICAL INDICATION: screening COMPARISON: [facility] DIG MAMM-SCREEN SUSAN W/CAD from 12/24/2016 [facility] MM Dig screening mamm BI w/CAD from 07/08/2018 [facility] MM DIG SCREENING MAMM BI W/CAD from 07/27/2019 TECHNIQUE: Standard CC and MLO images and 3D Tomosynthesis was obtained. R2 CAD reviewed. FINDINGS: Breast parenchyma is heterogeneously dense which may lower the sensitivity of mammography. No new dominant mass. No suspicious type calcifications or indirect evidence of malignancy. Benign appearing calcifications again noted bilaterally. IMPRESSION: Benign bilateral digital screening mammograms. BI-RAD Category: 2 Benign Finding FOLLOW-UP: 1 YR 1 Year Follow-up (A letter has been sent to the patient regarding results of the study.) Dictated by: Wilbur Yuan MD 08/31/2020 12:59 Wilbur Yuan MD in [place] 08/31/2020 12:59
== END ==
PROVIDERS: PCP Emergency Medicine; Visit Provider Emergency Medicine
DX: Z12.31 Encounter for screening mammogram for malignant neoplasm of breast (principal)
CPT/HCPCS: 77063; 77067

== ENCOUNTER → 2020-12-26 13:36 | Outpatient (CLI) | payer MEDICARE, MEDICAID, SELFPAY ==
[2020-12-26 13:46] LABS: Basophils # 0.1 K/mm3 (0-0.2); Basophils % 1.2 % (0.1-2.0); Eosinophils # 0.2 K/mm3 (0.0-0.4); Eosinophils % 2.1 % (0.1-12.0); Hemoglobin 15.1 g/dL (12.2-16.2); Lymphocytes # 2.2 K/mm3 (0.7-4.5); Lymphocytes % 24.2 % (10-50); Mean Corpuscular HGB Conc 32.8 g/dL (31.8-35.4); Mean Corpuscular Hemoglobin 29.7 pg (27.0-31.2); Mean Corpuscular Volume 90.4 fl (81-99); Mean Platelet Volume 9.3 fl (7.4-10.4); Monocytes # 0.4 K/mm3 (0.1-1.0); Monocytes % 4.8 % (1.7-9.3); Neutrophils % 67.6 % (37.0-80.0); Platelet Count 231 K/mm3 (142-424); Red Blood Count 5.08 M/mm3 (4.20-5.40); Red Cell Distribution Width 13.7 % (11.5-17.5); White Blood Count 8.9 K/mm3 (4.8-10.8)
[2020-12-26 16:46] LABS: Free T4 (Free Thyroxine) 1.61 ng/dl (0.78-2.19)
[2020-12-26 17:22] LABS: Chloride 107 mmol/L (98-107); Potassium 4.6 mmoL/L (3.5-5.1); Sodium 144 mmol/L (136-145)
[2020-12-26 17:25] LABS: Alanine Aminotransferase 14 U/L (12-78); Albumin Level 4.4 g/dl (3.5-5.0); Albumin/Globulin Ratio 1.3 (1.1-1.8); Alkaline Phosphatase 94 U/L (38-126); Anion Gap 13.6 mEq/L (5-15); Aspartate Amino Transferase 23 U/L (14-36); Bilirubin,Total 0.3 mg/dl (0.2-1.3); Blood Urea Nitrogen 14 mg/dl (7-17); Calcium 9.6 mg/dl (8.4-10.2); Carbon Dioxide 28 mmol/L (22.0-30.0); Cholesterol 179 mg/dl (140-200); Estimated Glomerular Filt Rate 50 ml/min (>60); GFR (African American) 60 ML/MIN (>60); Globulin 3.4 g/dL (1.3-3.2); Glucose 124 mg/dl (74-100); Total Protein,Serum 7.8 g/dl (6.3-8.2); Triglycerides 180 mg/dl (30-150); VLDL Cholesterol 36 mg/dL (0-40)
[2020-12-26 17:26] LABS: Chol/HDL Ratio 3.2 (1-3.5); HDL Cholesterol 56 mg/dl (40-60)
[2020-12-26 17:56] LABS: Thyroid Stimulating Hormone 3.48 uIU/mL (0.465-4.68)
[2020-12-26 18:54] LABS: Direct LDL Cholesterol 97.48 mg/dL (100-129)
[2020-12-26 23:55] LABS: 25-OH Vitamin D, Total 33.6 ng/mL (30-100)
== END ==
PROVIDERS: Visit Provider Emergency Medicine
DX: E03.9 Hypothyroidism, unspecified (principal); E78.5 Hyperlipidemia, unspecified; E55.9 Vitamin D deficiency, unspecified; J06.9 Acute upper respiratory infection, unspecified
CPT/HCPCS: 80053; 80061; 82306; 84439; 84443; 85025

== ENCOUNTER → 2020-12-29 13:12 | Outpatient (CLI) | payer MEDICARE, MEDICAID, SELFPAY ==
--- NOTE | 2020-12-29 13:12 | US_ITS ---
PROCEDURE: US THYROID CLINICAL INDICATION: hx thyroid surgery COMPARISON: US THY US THYROID from 04/19/2014 FINDINGS: There has been bilateral thyroidectomy. No residual thyroid tissue apparent. No evidence of mass or fluid collection within the thyroid bed. IMPRESSION: Status post bilateral thyroidectomy Dictated by: Noe Hollis MD 12/29/2020 16:27 Noe Hollis MD in [place] 12/29/2020 16:27
== END ==
PROVIDERS: PCP Emergency Medicine; Visit Provider Otolaryngology
DX: D49.7 Neoplasm of unspecified behavior of endocrine glands and other parts of nervous system (principal); E03.9 Hypothyroidism, unspecified
CPT/HCPCS: 76536

== ENCOUNTER → 2021-01-04 12:11 | Outpatient (CLI) | payer MEDICARE, MEDICAID, SELFPAY ==
[2021-01-04 12:50] LABS: Hemoglobin A1C 5.5 % (4.0-6.0)
== END ==
PROVIDERS: Visit Provider Physician Assistant
DX: R73.09 Other abnormal glucose (principal)
CPT/HCPCS: 36415; 83036

== ENCOUNTER → 2021-01-22 11:15 | Outpatient (CLI) | payer MEDICARE, MEDICAID, SELFPAY | PROVIDERS: Visit Provider Ophthalmology | DX: Z01.812 Encounter for preprocedural laboratory examination (principal); Z11.52 Encounter for screening for COVID-19 | CPT/HCPCS: C9803; U0003; U0005 ==

== ENCOUNTER 2021-01-23 06:38 | Day surgery (SDC) | payer MEDICARE, MEDICAID, SELFPAY ==
[2021-01-22 08:42] VITALS: BMI 26.9
[2021-01-23] VITALS (7 sets, daily range): BP systolic 143–175; BP diastolic 85–102; PULSE 75–100; RESP 18; TEMP 36.5–36.7; O2SAT 96–100
== END 2021-01-23 08:55 | disposition home or self-care (01) ==
LOC: OR 06:40
PROVIDERS: PCP Emergency Medicine; Visit Provider Ophthalmology
DX: H25.813 Combined forms of age-related cataract, bilateral (principal); H53.149 Visual discomfort, unspecified; H02.831 Dermatochalasis of right upper eyelid; F32.89 Other specified depressive episodes; E78.5 Hyperlipidemia, unspecified; E03.9 Hypothyroidism, unspecified; F41.9 Anxiety disorder, unspecified; Z72.0 Tobacco use; Z79.899 Other long term (current) drug therapy; Z90.710 Acquired absence of both cervix and uterus
CPT/HCPCS: 66982; V2632

== ENCOUNTER 2021-01-31 10:12 | Emergency (ER) | payer MEDICARE, MEDICAID, SELFPAY ==
[2021-01-31 10:20] VITALS: BP 146/112; PULSE 106; RESP 20; TEMP 36.9; O2SAT 97; BMI 27.2
--- NOTE | 2021-01-31 10:57 | HMH.EDUTC ---
[facility] [place] Disposition Clinical Impression: Bronchitis Sinusitis Qualifiers: Sinusitis location: unspecified location Chronicity: unspecified Qualified Code(s): J32.9 - Chronic sinusitis, unspecified Disposition: Home, Self-Care Condition on Discharge: Good Instructions: Sinusitis, Acute Bronchitis, DI for Sinusitis Additional Instructions: ? Start antibiotic today. Be sure to complete entire prescription even if feeling better ? Monitor temp. Tylenol every 4 hours as needed and / or ibuprofen every 6 hours as needed ( As long as your primary care physician has told you that it ok to take both. For fever/aches/pains ER if no less than 101 despite Tylenol or Motrin ? Humidifier/vaporizer or hot steamy shower ? Inhaler every 4-6 hours as needed like we discussed. If unsure how to use it, ask pharmacist to demonstrate how. Should help open airways and improve cough, wheezing, and shortness of breath ? Mucinex during the day for your cough and cough suppressant only at night. Be sure to drink lots of water. Insurance may not cover a prescriptions for mucinex. Might be cheaper to get 400mg tablets and take 2 tablet in the morning, mid-day and evening with lots of water. *Promethazine DM cough syrup will cause drowsiness. Use only at night. No driving, operating machinery or caring for small children after taking it *Tessalon Perles will not cause drowsiness but use at bedtime to help stop cough so that you may get some rest. *Start steroid today. Helps with inflammation therefore, cough and wheezing. Follow directions on the package. Reviewed side effects. Patient reports taking them before. Follow up IMMEDIATELY for new or worsening of symptoms OR no noticeable improvement over the next 48-72 hours. 911 immediately for any life threatening symptoms such as chest pain or difficulty breathing Prescriptions: Albuterol Sulfate [Proventil-HFA 90mcg/puff Inh] 1 - 2 puffs IH Q6HP PRN #1 each PRN Reason: Shortness Of Breath Transmission Status: Pending to [facility] methylPREDNISolone [Medrol 4mg tab] 4 mg PO DIRECTED #21 tab Transmission Status: Pending to [facility] Azithromycin [Z-Thang 250mg Tab] 250 mg PO DIRECTED #6 tab Transmission Status: Pending to [facility] Referrals: Avila Rivas MD [Primary Care Provider] - As needed Time of Disposition: 12:15 Medical Decision Making - Rai Inquiry Pt receiving controlled substance: No Rai was queried for this patient: No Vital Signs: 01/31/21 10:20 Temperature 98.4 F Temperature Source Oral Pulse Rate [Left Brachial] 106 H Respiratory Rate 20 Blood Pressure [Left Arm] 146/112 H Blood Pressure Mean [Left Arm] 123 Blood Pressure Source [Left Arm] Automatic Cuff Blood Pressure Position [Left Arm] Sitting 02 Sat by Pulse Oximetry 97 Oxygen Delivery Method Room Air - Lab Data Lab results reviewed: Yes: I reviewed the patient's lab results. Orders (Tests/Meds): ORDERS Category Date Time Status Chest XR 2 view (NOT portable) [XR chest 2V] Stat Exams 01/31/21 11:16 Taken Covid-19 Nasal PCR ([facility]) Routine Lab 01/31/21 10:25 Received - Radiology Data #1 Image(s): Chest Image Reviewed: Yes I reviewed the patient's radiology image w/the ED provider Preliminary Findings: Normal/NAD Medical Decision Narrative: Patient states that she has taken both azithromycin and Medrol in the past without complications or reactions and needs her albuteral inhaler she is out of it [facility] [place] HPI - General Stated complaint: cough, soa, runny nose Time Seen by Provider: 01/31/21 10:57 Mode of Arrival: Ambulatory Source of Information: Patient Limitations: No Limitations Description of Symptoms (Recalled from Triage Doc. by RN): PATIENT C/O PRODUCTIVE COUGH WITH WHITE SPUTUM, BODY ACHES AND DECREASED APPETITE X 3-4 DAYS HEENT Symptoms (Recalled from RN notes): No Resp Symptoms (Recalled from RN notes): Yes Skin S
--- NOTE | 2021-01-31 11:16 | XR_ITS ---
PROCEDURE: XR CHEST 2V CLINICAL HISTORY: PRODUCTIVE COUGH COMPARISON: CT [facility] CT CHEST W/O CONTRAST from 08/16/2015 CR CXR CHEST(2 VIEWS-NOT PORTABLE) from 09/03/2016 CR XR CHEST 2V from 01/04/2019 CR XR CHEST 2V from 02/16/2019 FINDINGS: The cardiomediastinal silhouette and pulmonary vascularity are within normal limits. Faint opacity is present in the left midlung which could be due to small area of infiltrate along with some minimal atelectatic change in at region. No acute bony findings. IMPRESSION: Faint opacity in the left midlung which could be due to a small area of infiltrate with mild atelectatic change Dictated by: oNe Hollis MD 01/31/2021 12:45 Noe Hollis MD in [place] 01/31/2021 12:45
[2021-01-31 12:13] VITALS: BP 146/112; PULSE 106; RESP 20; TEMP 36.9; O2SAT 97
== END 2021-01-31 12:27 | disposition home or self-care (01) ==
PROVIDERS: Emergency Provider Nurse Practitioner; PCP Emergency Medicine
DX: J20.9 Acute bronchitis, unspecified (principal); J32.9 Chronic sinusitis, unspecified; J44.9 Chronic obstructive pulmonary disease, unspecified; F41.8 Other specified anxiety disorders; E78.5 Hyperlipidemia, unspecified; I10 Essential (primary) hypertension; E03.9 Hypothyroidism, unspecified; Z20.822 Contact with and (suspected) exposure to COVID-19; F17.210 Nicotine dependence, cigarettes, uncomplicated
CPT/HCPCS: G0463; 71046; 99202; C9803; U0003; U0005

== ENCOUNTER 2021-02-05 09:18 | Emergency (ER) | payer MEDICARE, MEDICAID, SELFPAY ==
[2021-02-05 09:20] VITALS: BP 142/99; PULSE 83; RESP 21; TEMP 37; O2SAT 97; BMI 26.9
--- NOTE | 2021-02-05 10:01 | HMH.EDUTC ---
[facility] [place]ression: Bronchitis Disposition: Home, Self-Care Condition on Discharge: Good Instructions: Pneumonia-Adult, DI for Cough -- Adult, Doxycycline, Guaifenesin Additional Instructions: ? Start antibiotic today. Be sure to complete entire prescription even if feeling better ? Monitor temp. Tylenol every 4 hours as needed and / or ibuprofen every 6 hours as needed ( As long as your primary care physician has told you that it ok to take both. For fever/aches/pains ER if no less than 101 despite Tylenol or Motrin ? Humidifier/vaporizer or hot steamy shower ? Inhaler every 4-6 hours as needed like we discussed. If unsure how to use it, ask pharmacist to demonstrate how. Should help open airways and improve cough, wheezing, and shortness of breath *Tessalon Perles will not cause drowsiness but use at bedtime to help stop cough so that you may get some rest. Follow up IMMEDIATELY for new or worsening of symptoms OR no noticeable improvement over the next 48-72 hours. 911 immediately for any life threatening symptoms such as chest pain or difficulty breathing Prescriptions: Benzonatate [Benzonatate 100mg cap] 100 mg PO TID PRN #30 cap PRN Reason: Cough Transmission Status: Received by [facility] Doxycycline Monohydrate [Doxycycline Aurora 100mg Tab] 100 mg PO Q12 7 Days #14 tab Transmission Status: Received by [facility] Referrals: Avila Rivas MD [Primary Care Provider] - As needed Time of Disposition: 10:30 Medical Decision Making - Rai Inquiry Pt receiving controlled substance: No Rai was queried for this patient: No Vital Signs: 02/05/21 09:20 02/05/21 10:31 Temperature 98.6 F 98.6 F Temperature Source Oral Pulse Rate 83 Pulse Rate [Right Brachial] 83 Respiratory Rate 21 21 Blood Pressure 142/99 H Blood Pressure [Right Arm] 142/99 H Blood Pressure Mean [Right Arm] 113 Blood Pressure Source [Right Arm] Automatic Cuff Blood Pressure Position [Right Arm] Sitting 02 Sat by Pulse Oximetry 97 Oxygen Delivery Method Room Air - Lab Data Lab results reviewed: Yes: I reviewed the patient's lab results. Lab Results 02/05/21 10:10: Chlamy pneumoniae PCR Not detected, Adenovirus (PCR) Not detected, B. pertussis DNA (PCR) Not detected, Coronavirus OC43 (PCR) Not detected, Coronavirus HKU1 (PCR) Not detected, Coronavirus 229E (PCR) Not detected, SARS-CoV-2 (PCR) Not detected, Coronavirus NL63 (PCR) Not detected, Human Metapneumovir PCR Not detected, Influenza A (H1) PCR Not detected, Influ A (H1N1/09) PCR Not detected, Influenza A (H3) PCR Not detected, Influenza Type A (PCR) Not detected, Influenza Type B (PCR) Not detected, M. pneumoniae (PCR) Not detected, Parainfluenza 1 (PCR) Not detected, Parainfluenza 2 (PCR) Not detected, Parainfluenza 3 (PCR) Not detected, Parainfluenza 4 (PCR) Not detected, RSV (PCR) Not detected, Entero/Rhino (PCR) Not detected Orders (Tests/Meds): ED MEDICATIONS Discontinued Medications Generic Name Dose Route Start Last Admin Trade Name Freq PRN Reason Stop Dose Admin Ceftriaxone Sodium 1 gm 02/05/21 10:17 02/05/21 10:30 Ceftriaxone 1gm Vial IM 02/05/21 10:18 1 gm ONCE ONE Administration Lidocaine HCl 0 ml 02/05/21 10:17 02/05/21 10:30 Lidocaine 1% 5ml Pf Vial IM 02/05/21 10:18 2.1 ml ONCE ONE Administration [facility] - General Stated complaint: fever/chills, sore throat, cough, congestion Time Seen by Provider: 02/05/21 10:01 Mode of Arrival: Ambulatory Source of Information: Patient Limitations: No Limitations Description of Symptoms (Recalled from Triage Doc. by RN): PATIENT REPORTS SHE WAS TREATED FOR BRONCHITIS ON 01/31. SHE HAS FINISHED HER MEDS BUT IS NOT BETTER HEENT Symptoms (Recalled from RN notes): No Resp Symptoms (Recalled from RN notes): Yes Skin Symptoms (Recalled from RN notes): No MS Symptoms (Recalled from RN notes): No Functional Status (Recalled
[2021-02-05 10:19] LABS: Adenovirus,PCR Not Detected (NotDetected); Bordetella Pertussis Not Detected (NotDetected); Chlamydophila Pneumoniae, PCR Not Detected (NotDetected); Coronavirus 19, PCR Not Detected (NotDetected); Coronavirus 229E Not Detected (NotDetected); Coronavirus NL63 Not Detected (NotDetected); Coronavirus OC43 Not Detected (NotDetected); Coronovirus HKU1,PCR Not Detected (NotDetected); Human Metapneumovirus Not Detected (NotDetected); Influenza A, PCR Not Detected (NotDetected); Influenza AH1, 2009 Not Detected (NotDetected); Influenza AH1, PCR Not Detected (NotDetected); Influenza AH3,PCR Not Detected (NotDetected); Influenza B, PCR Not Detected (NotDetected); Mycoplasma Pneumoniae, PCR Not Detected (NotDetected); Parainfluenza 1, PCR Not Detected (NotDetected); Parainfluenza 2, PCR Not Detected (NotDetected); Parainfluenza 3, PCR Not Detected (NotDetected); Parainfluenza 4, PCR Not Detected (NotDetected); Respiratory Syncytial Virus Not Detected (NotDetected); Rhinovirus/Enterovirus Not Detected (NotDetected)
[2021-02-05 10:31] VITALS: BP 142/99; PULSE 83; RESP 21; TEMP 37; O2SAT 97
== END 2021-02-05 10:51 | disposition home or self-care (01) ==
PROVIDERS: Emergency Provider Nurse Practitioner; PCP Emergency Medicine
DX: J20.9 Acute bronchitis, unspecified (principal); J44.9 Chronic obstructive pulmonary disease, unspecified; E03.9 Hypothyroidism, unspecified; I10 Essential (primary) hypertension; E78.5 Hyperlipidemia, unspecified; F41.8 Other specified anxiety disorders
CPT/HCPCS: G0463; 87581; 87632; 87798; 96372; 99202; C9803; U0003; U0005

== ENCOUNTER → 2021-03-01 06:40 | Outpatient (CLI) | payer MEDICARE, MEDICAID, SELFPAY ==
--- NOTE | 2021-03-01 06:42 | CT_ITS ---
PROCEDURE: CT LUNG SCREENING CLINICAL INDICATION: lung cancer screening COMPARISON: CT CT LUNG SCREENING from 11/25/2018 TECHNIQUE: The exam was performed on a GE Light Speed [address] scanner using 2.90 mGy CTDI. A low dose helical CT CHEST was performed on a multi-detector scanner. All CT scans at the facility use one or more dose reduction, viz: automated exposure control, ma/kV adjustment per patient size (including targeted exams where dose is matched to indication, i.e. head), or iterative reconstruction technique. The LDCT was performed in a facility that meets the criteria for the screening program. Data regarding this exam was submitted to ACR which is an approved registry. The order for this exam indicates that it came as a result of a lung cancer screening counseling shard decision-making visit that included all the elements required of such a visit including smoking cessation. The radiologist interpreting this exam meets the CMS criteria for the LDCT lung cancer screening program. The exam is reported using the Lung-RADS classification scale and reported to the ACR registry. NOTE: This study was performed for the specific purposes of lung cancer screening and is not an alternative to diagnostic chest CT. RADIATION DOSE: CTDI vol(CT dose Index-volume) = 2.90mG DLP (Dose Length Product) = 96.38 mGcm FINDINGS: COPD with centrilobular emphysema and evidence of old granulomatous disease with scattered areas of scarring. Scattered calcified granulomas. There is a new left upper lobe nodule measuring 1.5 x 1 by 0.9 cm. This is in the left perihilar region and contiguous with the posterior segment of the apical posterior segmental bronchus. This has developed since the previous study and is suspicious for neoplasm.. This is best demonstrated on image 29 series 4. An inflammatory/post infectious process would be included in the differential diagnosis. OTHER FINDINGS: No mediastinal or hilar mass. 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 Small hiatal hernia. IMPRESSION: Lung-RADS Category 4B Very Suspicious regarding 1.5 x 1 cm left upper lobe nodule. Follow-up: Suggest pulmonary consult with possibility of biopsy with bronchoscopy. Dictated by: Noe Hollis MD 03/12/2021 12:03 Noe Hollis MD in [place] 03/12/2021 12:03
--- NOTE | 2021-03-01 08:15 | PC.NURSE ---
PFT and 6 Minute Walk Test completed without incident. Pt did well no complaints or complications. Albuterol 0.083% given via HHN, Pt tolerated tx well.
== END ==
PROVIDERS: PCP Emergency Medicine; Visit Provider Physician Assistant
DX: Z87.891 Personal history of nicotine dependence (principal); Z12.2 Encounter for screening for malignant neoplasm of respiratory organs; R06.02 Shortness of breath; R05.9 Cough, unspecified
CPT/HCPCS: 71271; 94060; 94618; 94726; 94729

== ENCOUNTER → 2021-07-13 12:39 | Outpatient (CLI) | payer MEDICARE, MEDICAID, SELFPAY | PROVIDERS: PCP Emergency Medicine; Visit Provider Student in an Organized Health Care Education/Training Program | DX: Z01.812 Encounter for preprocedural laboratory examination (principal); Z11.52 Encounter for screening for COVID-19 | CPT/HCPCS: C9803; U0003; U0005 ==

== ENCOUNTER → 2021-12-12 13:53 | Outpatient (CLI) | payer MEDICARE, MEDICAID, SELFPAY | PROVIDERS: PCP Emergency Medicine; Visit Provider Emergency Medicine | DX: Z20.822 Contact with and (suspected) exposure to COVID-19 (principal) | CPT/HCPCS: C9803; U0003; U0005 ==

== ENCOUNTER → 2022-01-02 15:07 | Outpatient (CLI) | payer MEDICARE, MEDICAID, SELFPAY ==
--- NOTE | 2022-01-02 15:08 | MM_ITS ---
PROCEDURE INFORMATION: Exam: MG Bilateral Screening 3D Mammography Exam date and time: 01/02/2022 3:02 PM Age: 66 years old Clinical indication: Screening examination. Personal history of lung cancer. No family history of breast cancer. TECHNIQUE: Imaging protocol: Bilateral Screening tomosynthesis and 2D mammography including computer-aided detection (CAD) when performed. COMPARISON: 1. MG MM DIG SCREENING MAMM BI W/CAD 08/30/2020 10:00 AM 2. MG MM DIG SCREENING MAMM BI W/CAD 07/27/2019 9:32 AM 3. MG [facility] MM Dig screening mamm BI w/CAD 07/08/2018 9:08 AM 4. MG [facility] DIG MAMM-SCREEN SUSAN W/CAD 12/24/2016 8:54 AM FINDINGS: MAMMOGRAPHY: Breast composition: The breasts are heterogeneously dense, which may obscure small masses. Mass: None. Architectural distortion: None. Calcifications: No suspicious calcifications. Asymmetric density: None. Skin thickening: None. Axillary adenopathy: None. IMPRESSION: No mammographic evidence of malignancy. Annual screening is recommended unless otherwise clinically indicated. ASSESSMENT: BI-RADS Category 1: Negative
== END ==
PROVIDERS: PCP Emergency Medicine; Visit Provider Emergency Medicine
DX: Z12.31 Encounter for screening mammogram for malignant neoplasm of breast (principal)
CPT/HCPCS: 77063; 77067

== ENCOUNTER → 2022-03-14 20:45 | Outpatient (CLI) | payer MEDICARE, MEDICAID, SELFPAY ==
[2022-03-15 08:41] LABS: Adenovirus,PCR Not Detected (NotDetected); Bordetella Pertussis Not Detected (NotDetected); Chlamydophila Pneumoniae, PCR Not Detected (NotDetected); Coronavirus 229E Not Detected (NotDetected); Coronavirus NL63 Not Detected (NotDetected); Coronavirus OC43 Not Detected (NotDetected); Coronovirus HKU1,PCR Not Detected (NotDetected); Human Metapneumovirus Not Detected (NotDetected); Influenza A, PCR Not Detected (NotDetected); Influenza AH1, 2009 Not Detected (NotDetected); Influenza AH1, PCR Not Detected (NotDetected); Influenza AH3,PCR Not Detected (NotDetected); Influenza B, PCR Not Detected (NotDetected); Mycoplasma Pneumoniae, PCR Not Detected (NotDetected); Parainfluenza 1, PCR Not Detected (NotDetected); Parainfluenza 2, PCR Not Detected (NotDetected); Parainfluenza 3, PCR Not Detected (NotDetected); Parainfluenza 4, PCR Not Detected (NotDetected); Respiratory Syncytial Virus Not Detected (NotDetected); Rhinovirus/Enterovirus Not Detected (NotDetected)
[2022-03-15 10:59] LABS: Coronavirus 19, PCR Detected (NotDetected)
== END ==
PROVIDERS: PCP Nurse Practitioner Family; Visit Provider Nurse Practitioner Family
DX: R52 Pain, unspecified (principal); R06.02 Shortness of breath; R05.9 Cough, unspecified; U07.1 COVID-19
CPT/HCPCS: 87581; 87632; 87798; C9803; U0003; U0005

== ENCOUNTER 2022-04-07 15:40 | Emergency (ER) | payer MEDICARE, MEDICAID, SELFPAY ==
[2022-04-07] VITALS (9 sets, daily range): BP systolic 150–175; BP diastolic 71–108; PULSE 91–118; RESP 16–20; TEMP 36.9; O2SAT 86–97; BMI 27.8
[2022-04-07 16:09] LABS: Microscopic, Urine URINE MICROSCOPIC (MICROSCOPIC)
[2022-04-07 16:10] LABS: Appearance,Urine CLOUDY (Clear); Blood, Urine 3+ (Negative); Color,Urine RED (Yellow); Glucose,Urine (UA) Negative (Negative); Ketones,Urine TRACE (Negative); Leukocyte Esterase,Urine TRACE (Negative); Nitrate,Urine POSITIVE (Negative); Protein,Urine 2+ (Negative); Specific Gravity, Urine 1.025 (1.005-1.030)
[2022-04-07 16:11] LABS: Bilirubin,Urine 1+ (Negative)
[2022-04-07 16:19] LABS: Basophils # 0.1 K/mm3 (0-0.2); Basophils % 0.3 % (0.1-2.0); Eosinophils # 0.1 K/mm3 (0.0-0.4); Eosinophils % 0.8 % (0.1-12.0); Hematocrit 35.5 % (37.0-47.0); Lymphocytes % 5.8 % (10-50); Mean Corpuscular HGB Conc 33.8 g/dL (31.8-35.4); Mean Corpuscular Hemoglobin 28.1 pg (27.0-31.2); Mean Platelet Volume 8.8 fl (7.4-10.4); Monocytes # 0.7 K/mm3 (0.1-1.0); Monocytes % 4.1 % (1.7-9.3); Neutrophils # 15.3 K/mm3 (1.8-7.8); Platelet Count 226 K/mm3 (142-424); Red Blood Count 4.28 M/mm3 (4.20-5.40); Red Cell Distribution Width 15.6 % (11.5-17.5); White Blood Count 17.2 K/mm3 (4.8-10.8)
[2022-04-07 16:38] LABS: Chloride 105 mmol/L (98-107); Sodium 138 mmol/L (136-145)
[2022-04-07 16:40] LABS: Alanine Aminotransferase 35 U/L (12-78); Alkaline Phosphatase 94 U/L (38-126); Aspartate Amino Transferase 41 U/L (14-36); Bilirubin,Total 0.6 mg/dl (0.2-1.3); Blood Urea Nitrogen 31 mg/dl (7-17); Creatinine Clearance Estimated 18 mL/min (50-200); Estimated Glomerular Filt Rate 16 ml/min (>60); GFR (African American) 19 ML/MIN (>60)
[2022-04-07 16:41] LABS: Albumin Level 3.9 g/dl (3.5-5.0); Albumin/Globulin Ratio 1.1 (1.1-1.8); Calcium 11.6 mg/dl (8.4-10.2); Carbon Dioxide 27 mmol/L (22.0-30.0); Globulin 3.6 g/dL (1.3-3.2); Glucose 157 mg/dl (74-100); Lipase 24 U/L (23-300); Total Protein,Serum 7.5 g/dl (6.3-8.2)
[2022-04-07 16:46] LABS: MANUAL DIFFERENTIAL MANUAL DIFFERENTIAL (MANUAL DIFF)
[2022-04-07 16:49] LABS: Bacteria,Urine Trace /lpf; RBC,Urine TNTC #/hpf (0-3); Squamous Epithelial Cell,Urine Occasional #/hpf (0-5); WBC,Urine Occasional #/hpf (0-3)
--- NOTE | 2022-04-07 17:13 | CT_ITS ---
PROCEDURE INFORMATION: Exam: CT Abdomen And Pelvis Without Contrast Exam date and time: 04/07/2022 5:21 PM Age: 66 years old Clinical indication: Abdominal pain; Flank; Right; Additional info: R sided abdo pain-- unable to give contrast gfr=16 TECHNIQUE: Imaging protocol: Computed tomography of the abdomen and pelvis without contrast. Radiation optimization: All CT scans at this facility use at least one of these dose optimization techniques: automated exposure control; mA and/or kV adjustment per patient size (includes targeted exams where dose is matched to clinical indication); or iterative reconstruction. COMPARISON: ABDPELW CT ABD PELVIS W/ CONTRAST 03/05/2017 11:05 AM FINDINGS: Limitations: The absence of intravenous contrast limits the assessment of vascular structures, lesions and lymphadenopathy. Lungs: Bibasilar subsegmental atelectasis noted. Right lower lobe granuloma. There is a triangular nodule along the right pulmonary fissure, favored to represent an intrapulmonary lymph node. Liver: No focal hepatic lesions within the limits of noncontrast examination. Gallbladder and bile ducts: There has been a cholecystectomy. No biliary ductal dilation. Pancreas: No peripancreatic fluid stranding. No main pancreatic ductal dilation. Spleen: No splenomegaly. Multiple splenic granulomas Adrenal glands: The adrenal glands are normal. Kidneys and ureters: Severe right hydroureteronephrosis. There is hyperattenuating material retained in the proximal ureter and renal pelvis which can be attributed to retained contrast or a blood clot. Right perinephric stranding tracks caudally along the ureter and right lower quadrant. Stomach and bowel: No bowel wall thickening or distention. Appendix: A normal appendix is not well visualized. Intraperitoneal space: There is a small amount of free fluid present. Vasculature: The aorta demonstrates mild atherosclerotic calcification. There is redemonstration of 3 lined up calcifications (with lucent center) adjacent to the distal right ureter. These are along the expected course of the right ovarian vein, therefore suspicious for phleboliths. Lymph nodes: Borderline prominent, multi station lymph nodes likely reactive Urinary bladder: Unremarkable as visualized. Reproductive: Status post hysterectomy. Bones/joints: No left nephrolithiasis or hydroureteronephrosis No acute osseous abnormality. Soft tissues: Unremarkable. IMPRESSION: Severe right hydroureteronephrosis. There is hyperattenuating material retained in the proximal ureter and renal pelvis which can be attributed to retained contrast or a blood clot.
--- NOTE | 2022-04-07 17:14 | XR_ITS ---
PROCEDURE INFORMATION: Exam: XR Chest Exam date and time: 04/07/2022 5:37 PM Age: 66 years old Clinical indication: Shortness of breath; Additional info: Abdo pain TECHNIQUE: Imaging protocol: Radiologic exam of the chest. Views: 1 view. COMPARISON: CT LUNG SCREENING 03/01/2021 7:13 AM FINDINGS: Lungs: No evidence of pneumonia or interstitial edema. Pleural spaces: Unremarkable. No pleural effusion. No pneumothorax. Heart/Mediastinum: Unremarkable. No cardiomegaly. Bones/joints: Unremarkable. Intraperitoneal space: No subdiaphragmatic free air. IMPRESSION: 1. No evidence of pneumonia or interstitial edema. 2. No subdiaphragmatic free air.
--- NOTE | 2022-04-07 17:15 | HMH.EDGENADL ---
Discharge Plan Disposition Patient Disposition: Left Against Medical Advice Condition: Serious Prescriptions Prescriptions: No Action trazodone 100 mg tablet See Rx Instructions .ROUTE .COMPLEX Qty: 30 2RF Dose Instruction: TAKE ONE TABLET BY MOUTH AT BEDTIME Rx Instructions: TAKE ONE TABLET BY MOUTH AT BEDTIME venlafaxine [Effexor XR] 75 mg capsule,extended release 24hr 75 mg PO DAILY Qty: 30 1RF vilazodone 40 mg tablet 40 mg PO DAILY Qty: 30 1RF Rx Instructions: must administer with a meal/food clonazepam [Klonopin] 1 mg tablet 1 mg PO QID Qty: 120 0RF Rx Instructions: fill first step one clonazepam [Klonopin] 1 mg tablet 1 mg PO TID Qty: 90 1RF Rx Instructions: step two Breo Ellipta 200-25 mcg/dose blister with device 1 inh INHALATION Q24H Qty: 28 2RF Rx Instructions: after inhalation, rinse mouth with water and spit out; do not swallow azithromycin 250 mg tablet See Rx Instructions PO .COMPLEX Qty: 6 0RF Rx Instructions: take 500 mg today (day 1), then 250 mg for 4 days (days 2-5) albuterol sulfate 1.25 mg/3 mL solution for nebulization See Rx Instructions .ROUTE .COMPLEX Qty: 75 2RF Dose Instruction: INHALE CONTENTS OF 1 VIAL VIA NEBULIZER FOUR TIMES A DAY NEEDED FOR SHORTNESS OF BREATH OR WHEEZING Rx Instructions: INHALE CONTENTS OF 1 VIAL VIA NEBULIZER FOUR TIMES A DAY NEEDED FOR SHORTNESS OF BREATH OR WHEEZING prednisone 20 mg tablet 20 mg PO BID 5 Days Qty: 10 0RF Mucinex DM 30-600 mg tablet extended release 12 hr 1 tab PO Q12H Qty: 60 0RF nicotine 21 mg/24 hr patch 24 hour 1 patch TRANSDERMA DAILY Qty: 28 0RF levothyroxine 112 mcg tablet 112 mcg PO DAILY Qty: 90 4RF oxybutynin chloride 5 mg tablet See Rx Instructions .ROUTE .COMPLEX Qty: 180 1RF Dose Instruction: TAKE ONE TABLET BY MOUTH TWICE A DAY FOR OVERACTIVE BLADDER *MAY CAUSE DROWSINESS* Rx Instructions: TAKE ONE TABLET BY MOUTH TWICE A DAY FOR OVERACTIVE BLADDER *MAY CAUSE DROWSINESS* pravastatin 40 mg tablet See Rx Instructions .ROUTE .COMPLEX Qty: 90 1RF Dose Instruction: TAKE ONE TABLET BY MOUTH AT BEDTIME FOR CHOLESTEROL Rx Instructions: TAKE ONE TABLET BY MOUTH AT BEDTIME FOR CHOLESTEROL albuterol sulfate 200 PUFFS HFA aerosol inhaler 1 - 2 puffs IH Q6HP PRN (Reason: Shortness Of Breath) Qty: 1 0RF Referrals Follow up/Referrals: Avila Rivas MD [Primary Care Provider] - See instructions Activity Restrictions/Add. Instructions Additional Instructions/Restrictions: Go to [facility] emergency department as soon as possible. Clinical Impressions Clinical Impression: Hydroureteronephrosis, CASSI (acute kidney injury), Hypercalcemia Stand Alone Forms Stand Alone Forms: Transfer Record - ED Instructions Patient Instructions: DI for Acute Abdominal Pain Discharge ED Provider: Cal Galvez General Adult HPI General Chief complaint: Abdominal Pain Stated complaint: right side pain, vomiting Time Seen by Provider: 04/07/22 17:06 Mode of Arrival: Ambulatory Source of Information: Patient Limitations: No Limitations Description of Symptoms (Recalled from ER Triage Doc. by RN): Pt c/o R sided lower abd pain, describes as pressure in nature x3 days, also reports vomiting x3 days and blood noted when wiping after urination x3 days. Pt reports has had a total hysterectomy. Pt denies urination pain or difficulty. History of Present Illness HPI narrative: The patient states that she has had right-sided abdominal pain and vomiting since yesterday. She points to her right lower quadrant. She is noticed blood in her urine when she wipes for the past couple of days. No fever noted. Last bowel movement was 2 days ago. She states she has had previous hysterectomy and 2 hernia surgeries. She does not know whether she has had her gallbladder or appendix janet
[2022-04-07 17:31] LABS: Magnesium 2.4 mg/dl (1.6-2.3); Phosphorous 4.4 mg/dl (2.5-4.5)
[2022-04-07 18:00] LABS: Coronavirus 19, PCR Not Detected (NotDetected); Influenza A, PCR Not Detected (NotDetected); Influenza B, PCR Not Detected (NotDetected)
[2022-04-07 18:01] LABS: Lactic Acid 1.4 mmol/L (0.7-2.1)
--- NOTE | 2022-04-07 18:01 | ECG_ITS ---
APPROVED REPORT Exam: Resting ECG HR:109 bpm ECG Measurements Heart Rate 109 AXES MD 117 P 82 QRSd 77 QRS 57 QT 298 T 24 QTc 362 Conclusion SINUS TACHYCARDIA WITH SHORT MD INTERVAL NONSPECIFIC T-WAVE ABNORMALITY ABNORMAL RHYTHM ECG UNCONFIRMED REPORT Electronically signed by : Sourav Delacruz MD 04/08/2022 20:13:54
[2022-04-07 18:04] LABS: Thyroid Stimulating Hormone 3.12 uIU/mL (0.465-4.68)
[2022-04-07 18:11] LABS: Lymphocytes % 4 % (10-50); Monocytes % 1 % (2-9); Neutrophils % 82 % (42-76); Platelet Estimate Normal; RBC Morphology Normal; Total Cells Counted 100
--- NOTE | 2022-04-07 18:16 | PC.NURSE ---
Dr Galvez speaking with [facility]
--- NOTE | 2022-04-07 18:31 | PC.NURSE ---
placed call to [facility] for transfer
--- NOTE | 2022-04-07 18:32 | PC.NURSE ---
called radiology to have them power share pts images with [facility] per their request
--- NOTE | 2022-04-07 18:35 | PC.NURSE ---
Dr sevilla speaking with Dr Kaye at
--- NOTE | 2022-04-07 18:50 | PC.NURSE ---
per ER pt accepted to per Dr. Kaye who states he will get a bed for pt but is may be 3-4 hours.
--- NOTE | 2022-04-07 19:12 | PC.NURSE ---
shift change report given to juan alberto alexander and tonrn
--- NOTE | 2022-04-07 20:23 | PC.NURSE ---
left hospital AMA. multiple attempts to explain the urgency and extent of treatment were explained to the pt. multiple staff members made attempts to get the pt to her to get her to reconsider. pt signed out and states it'll be okay honey
== END 2022-04-07 20:23 | disposition left against medical advice (07) ==
PROVIDERS: Emergency Provider Emergency Medicine; PCP Emergency Medicine
DX: N17.9 Acute kidney failure, unspecified (principal); E83.52 Hypercalcemia; N13.30 Unspecified hydronephrosis; F41.1 Generalized anxiety disorder; F33.9 Major depressive disorder, recurrent, unspecified; F17.210 Nicotine dependence, cigarettes, uncomplicated; Z20.822 Contact with and (suspected) exposure to COVID-19
CPT/HCPCS: 71045; 74176; 80053; 81001; 83605; 83690; 83735; 84100; 84443; 85007; 85025; 87040; 93005; 96361; 96374; 96375; 99285; C9803; J0692; J2405; U0003; U0005

== ENCOUNTER 2022-04-30 05:42 | Inpatient (IN) | payer MEDICARE, MEDICAID, SELFPAY ==
[2022-04-30] VITALS (20 sets, daily range): BP systolic 118–152; BP diastolic 59–99; PULSE 68–109; RESP 16–20; TEMP 36.4–36.8; O2SAT 90–100; BMI 25.2; BMI 27.2; BMI 24.7
[2022-04-30 05:53] LABS: Basophils # 0.1 K/mm3 (0-0.2); Basophils % 0.5 % (0.1-2.0); Eosinophils # 0.2 K/mm3 (0.0-0.4); Eosinophils % 1.5 % (0.1-12.0); Hematocrit 27.3 % (37.0-47.0); Hemoglobin 8.8 g/dL (12.2-16.2); Lymphocytes # 1.1 K/mm3 (0.7-4.5); Lymphocytes % 6.9 % (10-50); Mean Corpuscular Hemoglobin 27.8 pg (27.0-31.2); Mean Corpuscular Volume 86.7 fl (81-99); Mean Platelet Volume 8.2 fl (7.4-10.4); Monocytes # 0.6 K/mm3 (0.1-1.0); Monocytes % 4.1 % (1.7-9.3); Neutrophils # 13.7 K/mm3 (1.8-7.8); Neutrophils % 87.1 % (37.0-80.0); Platelet Count 280 K/mm3 (142-424); Red Blood Count 3.15 M/mm3 (4.20-5.40); Red Cell Distribution Width 16.7 % (11.5-17.5); White Blood Count 15.8 K/mm3 (4.8-10.8)
[2022-04-30 05:54] LABS: Chloride 103 mmol/L (98-107); Sodium 138 mmol/L (136-145)
[2022-04-30 05:55] LABS: Potassium 3.3 mmoL/L (3.5-5.1)
[2022-04-30 05:57] LABS: Alanine Aminotransferase 19 U/L (12-78); Alkaline Phosphatase 121 U/L (38-126); Aspartate Amino Transferase 28 U/L (14-36); Bilirubin,Total 0.5 mg/dl (0.2-1.3); Blood Urea Nitrogen 28 mg/dl (7-17); Creatinine Clearance Estimated 14 mL/min (50-200); Estimated Glomerular Filt Rate 13 ml/min (>60); GFR (African American) 15 ML/MIN (>60)
--- NOTE | 2022-04-30 05:57 | CT_ITS ---
PROCEDURE INFORMATION: Exam: CT Abdomen And Pelvis Without Contrast Exam date and time: 04/30/2022 6:28 AM Age: 66 years old Clinical indication: Other: Vaginal bleeding; Prior surgery; Surgery type: Nephrostomy tube right kidney; Additional info: Vaginal bleeding x1 week TECHNIQUE: Imaging protocol: Computed tomography of the abdomen and pelvis without contrast. Radiation optimization: All CT scans at this facility use at least one of these dose optimization techniques: automated exposure control; mA and/or kV adjustment per patient size (includes targeted exams where dose is matched to clinical indication); or iterative reconstruction. Other protocol: This patient has received [address] and 0 known cardiac nuclear medicine studies in the 12 months prior to the current study. COMPARISON: CT ABDOMEN PELVIS WO CON 04/07/2022 5:21 PM FINDINGS: Lungs: Minimal stranding at the left lung base, most likely atelectasis. Diaphragm: Small hiatal hernia. Liver: Normal. No mass. Gallbladder and bile ducts: Prior cholecystectomy again noted. Normal bile ducts. Pancreas: Normal. No ductal dilation. Spleen: Normal. No splenomegaly. Adrenal glands: Normal. No mass. Kidneys and ureters: Since the prior study a right-sided percutaneous nephrostomy tube has been placed. The tube is appropriately positioned. The collecting system is decompressed. Edema of the kidney remains. Perinephric stranding remains. The left kidney is normal. No renal tract stones. Calcifications in the mid right pelvis are phleboliths in the ovarian vein. Stomach and bowel: Unremarkable. No obstruction. No mucosal thickening. Appendix: No evidence for appendicitis. Normal diameter. No inflammation. Intraperitoneal space: Unremarkable. No free air. No significant fluid collection. Vasculature: No aortic aneurysm. Lymph nodes: Unremarkable. No enlarged lymph nodes. Urinary bladder: Unremarkable as visualized. Reproductive: The uterus is again noted to be absent. No adnexal masses or fluid collections. Bones/joints: Unremarkable. No acute fracture. Soft tissues: Unremarkable. IMPRESSION: 1. Interval placement of a right-sided nephrostomy tube with decompression of the collecting system. Edema of the right kidney remains, probably representing pyelonephritis and/or nephritis. 2. No other acute changes in the abdomen or pelvis.
[2022-04-30 05:58] LABS: Albumin Level 3.6 g/dl (3.5-5.0); Anion Gap 5.3 mEq/L (5-15); Carbon Dioxide 33 mmol/L (22.0-30.0); Globulin 3.5 g/dL (1.3-3.2); Glucose 128 mg/dl (74-100); Total Protein,Serum 7.1 g/dl (6.3-8.2)
[2022-04-30 06:03] LABS: MANUAL DIFFERENTIAL MANUAL DIFFERENTIAL (MANUAL DIFF)
[2022-04-30 06:06] LABS: Occult Blood,Stool Negative (Negative)
[2022-04-30 06:08] LABS: Calcium 15.4 mg/dl (8.4-10.2)
--- NOTE | 2022-04-30 06:11 | PC.NURSE ---
notified MD Rivas of critical calcium 15.4
[2022-04-30 06:31] LABS: Lactic Acid 1.4 mmol/L (0.7-2.1)
[2022-04-30 07:27] LABS: Lymphocytes % 5 % (10-50); Monocytes % 5 % (2-9); Neutrophils % 90 % (42-76); Platelet Estimate Normal; RBC Morphology Normal; Total Cells Counted 100
--- NOTE | 2022-04-30 07:32 | PC.NURSE ---
pt given a warm blanket and lights turned out. Call light within reach, no other needs at this time
--- NOTE | 2022-04-30 07:45 | XR_ITS ---
FINAL REPORT CLINICAL HISTORY: cough COMPARISON: 04/07/2022 FINDINGS: PA and lateral views of the chest were obtained. The cardiac and mediastinal silhouettes are stable. There is emphysema. There is linear opacity in the left mid lung, favor scar. No new infiltrate is identified. There is no pleural effusion or pneumothorax. No acute osseous abnormality is identified. IMPRESSION: No radiographic evidence of acute cardiac or pulmonary disease. Reviewed, Interpreted and Dictated by Coreen Peng MD Transcribed by Shannan Mcguire Authenticated and [facility]
--- NOTE | 2022-04-30 07:46 | PC.NURSE ---
radiology aware of chest x-ray
--- NOTE | 2022-04-30 07:55 | PC.NURSE ---
patient to radiology via wheelchair with technology internship
--- NOTE | 2022-04-30 07:58 | PC.NURSE ---
pt to radiology
--- NOTE | 2022-04-30 08:00 | PC.NURSE ---
pt arrived back to room from radiology
--- NOTE | 2022-04-30 08:04 | HMH.EDUROGF ---
Discharge Plan Disposition Patient Disposition: Admitted As Inpatient Condition: Fair Prescriptions Prescriptions: No Action trazodone 100 mg tablet See Rx Instructions .ROUTE .COMPLEX Qty: 30 2RF Dose Instruction: TAKE ONE TABLET BY MOUTH AT BEDTIME Rx Instructions: TAKE ONE TABLET BY MOUTH AT BEDTIME vilazodone 40 mg tablet 40 mg PO DAILY Qty: 30 1RF Rx Instructions: must administer with a meal/food clonazepam [Klonopin] 1 mg tablet 1 mg PO QID Qty: 120 0RF Rx Instructions: fill first step one clonazepam [Klonopin] 1 mg tablet 1 mg PO TID Qty: 90 1RF Rx Instructions: step two Breo Ellipta 200-25 mcg/dose blister with device 1 inh INHALATION Q24H Qty: 28 2RF Rx Instructions: after inhalation, rinse mouth with water and spit out; do not swallow azithromycin 250 mg tablet See Rx Instructions PO .COMPLEX Qty: 6 0RF Rx Instructions: take 500 mg today (day 1), then 250 mg for 4 days (days 2-5) albuterol sulfate 1.25 mg/3 mL solution for nebulization See Rx Instructions .ROUTE .COMPLEX Qty: 75 2RF Dose Instruction: INHALE CONTENTS OF 1 VIAL VIA NEBULIZER FOUR TIMES A DAY NEEDED FOR SHORTNESS OF BREATH OR WHEEZING Rx Instructions: INHALE CONTENTS OF 1 VIAL VIA NEBULIZER FOUR TIMES A DAY NEEDED FOR SHORTNESS OF BREATH OR WHEEZING prednisone 20 mg tablet 20 mg PO BID 5 Days Qty: 10 0RF Mucinex DM 30-600 mg tablet extended release 12 hr 1 tab PO Q12H Qty: 60 0RF nicotine 21 mg/24 hr patch 24 hour 1 patch TRANSDERMA DAILY Qty: 28 0RF levothyroxine 112 mcg tablet 112 mcg PO DAILY Qty: 90 4RF oxybutynin chloride 5 mg tablet See Rx Instructions .ROUTE .COMPLEX Qty: 180 1RF Dose Instruction: TAKE ONE TABLET BY MOUTH TWICE A DAY FOR OVERACTIVE BLADDER *MAY CAUSE DROWSINESS* Rx Instructions: TAKE ONE TABLET BY MOUTH TWICE A DAY FOR OVERACTIVE BLADDER *MAY CAUSE DROWSINESS* pravastatin 40 mg tablet See Rx Instructions .ROUTE .COMPLEX Qty: 90 1RF Dose Instruction: TAKE ONE TABLET BY MOUTH AT BEDTIME FOR CHOLESTEROL Rx Instructions: TAKE ONE TABLET BY MOUTH AT BEDTIME FOR CHOLESTEROL venlafaxine [Effexor XR] 75 mg capsule,extended release 24hr 75 mg PO DAILY Qty: 30 1RF albuterol sulfate 200 PUFFS HFA aerosol inhaler 1 - 2 puffs IH Q6HP PRN (Reason: Shortness Of Breath) Qty: 1 0RF Referrals Follow up/Referrals: Avila Rivas MD [Primary Care Provider] - See instructions Clinical Impressions Clinical Impression: Renal hemorrhage, right, Hypercalcemia, Renal failure (ARF), acute on chronic, Acute urinary tract infection Discharge ED Provider: Adonay Harper Female Urogenital HPI <Avila Rivas (ED)MD - Last Filed: 04/30/22 08:11> General Chief complaint: Vaginal Bleeding Stated complaint: vaginal bleeding Time Seen by Provider: 04/30/22 07:04 Mode of Arrival: EMS Source of Information: Patient and Medical Record Limitations: No Limitations Description of Symptoms (Recalled from ER Triage Doc. by RN): c/o blood coming from vagina. pt reports bleeding one week. pt also reports recen nephrostomy tube placement at after liver problems. History of Present Illness HPI Narrative: has reported vaginal bleeding but had recent renal surg at and has nephr tube Complaint: vaginal bleeding Onset (ago): hour(s) Severity: moderate Related Data Previous Rx's Medication Instructions Recorded albuterol sulfate 90 mcg/actuation 1 - 2 puffs inhalation Q6HP PRN 01/31/21 aerosol inhaler Shortness Of Breath #1 ea nicotine 21 mg/24 hr daily 1 patch transdermal DAILY #28 ea 04/26/21 transdermal patch levothyroxine 112 mcg tablet 112 mcg PO DAILY THYROIDECTOMY #90 02/05/22 tabs trazodone 100 mg tablet See Rx Instructions .Route 02/12/22 .COMPLEX #30 tabs vilazodone 40 mg tablet 40 mg PO DAILY Depression #30 tabs 02/12/22 oxybutynin chloride 5 mg tab
--- NOTE | 2022-04-30 08:13 | PC.NURSE ---
Notified lab of PT/INR add on
[2022-04-30 08:20] LABS: Coronavirus 19, PCR Not Detected (NotDetected); Influenza A, PCR Not Detected (NotDetected); Influenza B, PCR Not Detected (NotDetected)
[2022-04-30 08:27] LABS: INR 1.01 (0.9-1.1); Prothrombin Time 10.9 seconds (10.1-12.5)
--- NOTE | 2022-04-30 09:11 | PC.NURSE ---
ER MD at bedside to discuss POC
--- NOTE | 2022-04-30 09:19 | PC.NURSE ---
Spoke with Pete in radiology to power share her images to [facility] and burn us an imaging disc
--- NOTE | 2022-04-30 09:21 | PC.NURSE ---
CALLED [facility] TO CONSULT UROLOGY
[2022-04-30 09:44] LABS: Microscopic,Cath URINE MICROSCOPIC (MICROSCOPIC)
--- NOTE | 2022-04-30 09:45 | PC.NURSE ---
in and out pt for urine sample, pt tolerated well
[2022-04-30 09:47] LABS: Appearance,Urine/Cath TURBID (Clear); Bilirubin,Cath Negative (Negative); Blood, Urine/Cath 3+ (Negative); Color,Urine/Cath RED (Yellow); Glucose,Urine/Cath (UA) TRACE (Negative); Ketones,Urine/Cath TRACE (Negative); Leukocyte Esterase,Cath 2+ (Negative); Nitrate,Cath POSITIVE (Negative); PH,Urine/Cath 6.5 (5.0-8.5); Protein,Urine/Cath 3+ (Negative); Specific Gravity, Urine/Cath 1.025 (1.005-1.030)
--- NOTE | 2022-04-30 09:49 | ECG_ITS ---
APPROVED REPORT Exam: Resting ECG HR:90 bpm ECG Measurements Heart Rate 90 AXES AL 127 P 71 QRSd 90 QRS 34 QT 306 T 47 QTc 354 Conclusion SINUS RHYTHM Late R wave progression - unchanged from prior ABNORMAL ECG UNCONFIRMED REPORT Electronically signed by : Sourav Delacruz MD 04/30/2022 21:16:25
--- NOTE | 2022-04-30 09:54 | PC.NURSE ---
JACKI NAVARRO speaking with Dr. Wilbur NAVARRO
--- NOTE | 2022-04-30 09:58 | PC.NURSE ---
TRANSFERRED UROLOGY DR VERA TO JACKI NAVARRO
--- NOTE | 2022-04-30 10:05 | PC.NURSE ---
ED MD CALL HOSPITALIST ABOUT ADMITTING PT. HOSP. WAS IN HUDDLE AWAITING CALL BACK
--- NOTE | 2022-04-30 10:05 | PC.NURSE ---
Dr. Harper spoke with urology at who accepts pt, bed will not be available for 24-36 hours. Plan to admit pt here until bed available
[2022-04-30 10:12] LABS: Bacteria,Urine/Cath 1+ /lpf; Hyaline Casts,Urine/Cath O #/lpf (0); RBC,Urine/Cath TNTC # /hpf (0-3)
--- NOTE | 2022-04-30 10:52 | PC.NURSE ---
Dr Harper called for hospitalist again
--- NOTE | 2022-04-30 10:54 | PC.NURSE ---
CALLED HOUSE AND SPOKE WITH BHARATH REGARDING ER MD NOT BEING ABLE TO GET IN TOUCH WITH THE HOSPITALIST; WILL RE-EVALUATE SHORTLY.
--- NOTE | 2022-04-30 11:04 | PC.NURSE ---
Dr Harper speaking with hospitalist
--- NOTE | 2022-04-30 11:33 | PC.NURSE ---
CALLED [facility] IN [facility] FOR A BED TO ADMIT PT TO MED SURGE
--- NOTE | 2022-04-30 12:17 | PC.NURSE ---
Addendum entered by Huma Gao, BHAVYA 04/30/22 12:28: PT ALSO REFUSED TO WEAR A GOWN Original Note: CHECKED ON PT SHE STATED SHE DID NOT WANT NO ONE TOUCHING HER, SHE ALLOWED ME TO WIPE HER LEFT FOOT AT HEEL TO REMOVED DRIED BLOOD AND ALSO GAVE PT A WARM BLANKET, PT IS NOT RESTING
--- NOTE | 2022-04-30 12:28 | HMH.EDGENADL ---
Discharge Plan Disposition Patient Disposition: Admitted As Inpatient Condition: Fair Clinical Impressions Clinical Impression: Renal hemorrhage, right, Hypercalcemia, Renal failure (ARF), acute on chronic, Acute urinary tract infection Discharge ED Provider: Adonay Harper General Adult HPI General Chief complaint: Vaginal Bleeding Stated complaint: vaginal bleeding Time Seen by Provider: 04/30/22 07:04 Mode of Arrival: EMS Source of Information: Patient and Medical Record Limitations: No Limitations Description of Symptoms (Recalled from ER Triage Doc. by RN): c/o blood coming from vagina. pt reports bleeding one week. pt also reports recen nephrostomy tube placement at after liver problems. History of Present Illness Onset (ago): hour(s) Related Data Home Medications Medication Instructions Recorded Confirmed albuterol sulfate 1.25 mg/3 mL 1.25 mg inhalation QIDP PRN 04/30/22 04/30/22 solution for nebulization breathing problems amlodipine 5 mg tablet 5 mg PO BID High blood pressure 04/30/22 04/30/22 apixaban 5 mg tablet (Eliquis) 5 mg PO BID PE 04/30/22 05/01/22 clonazepam 1 mg tablet (Klonopin) 1 mg PO QID Anxiety 04/30/22 04/30/22 dextromethorphan-guaifenesin 30 1 tab PO Q12H congestion 04/30/22 04/30/22 mg-600 mg tablet extended dozsilh11 hr (Mucinex DM) fluticasone furoate 200 1 inh inhalation BID Breathing 04/30/22 04/30/22 mcg-vilanterol 25 mcg/dose problems inhalation powder (Breo Ellipta) levothyroxine 112 mcg tablet 112 mcg PO DAILY thyroid 04/30/22 04/30/22 lidocaine 5 % topical patch 1 patch transdermal DAILY Pain 04/30/22 04/30/22 nicotine 21 mg/24 hr daily 1 patch transdermal DAILY smoking 04/30/22 04/30/22 transdermal patch cessation oxybutynin chloride 5 mg tablet 5 mg PO BID bladder issues 04/30/22 04/30/22 pravastatin 40 mg tablet 90 mg PO DAILY Cholesterol 04/30/22 04/30/22 venlafaxine 75 mg capsule,extended 75 mg PO DAILY mood 04/30/22 04/30/22 release 24 hr (Effexor XR) Previous Rx's Medication Instructions Recorded vilazodone 40 mg tablet 40 mg PO DAILY Depression #30 tabs 02/12/22 Allergies Allergy/AdvReac Type Severity Reaction Status Date / Time No Known Allergies Allergy Verified 04/03/22 13:21 [facility] Disclaimer: The information contained in this section may have been updated after the patient was seen, as this information can be updated by other users. 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 Pulmonary embolus Tobacco dependence Surgical History History of hysterectomy S/P appendectomy S/P cholecystectomy S/P lobectomy of lung S/P thyroidectomy Social History (Updated 04/30/22 @ 15:57 by Heide Pelayo RN) Smoking Status: Current every day smoker tobacco type: cigarettes packs per day: 1 second hand exposure: No alcohol intake: never substance use type: denies use current occupational status: other Travel in the last 8 weeks: None household members: none housing: apartment number of children: 4 current occupational exposures/hazards: No caffeine: Yes ROS Obtained: Yes All systems reviewed & no additional complaints except as documented Physical Exam General General appearance: alert Respiratory Respiratory exam: Present normal lung sounds bilaterally Cardiovascular Cardiovascular exam: Present regular rate and normal rhythm Neurological Exam Neurological exam: Present alert and oriented X3 Medical Decision Making Rai Inquiry Pt receiving controlled substance: No Vital Signs:
--- NOTE | 2022-04-30 12:30 | HMH.PHAINT1 ---
Pharmacy Intervention Comments: Home medication reconciliation completed using external history and SUSANNA report
--- NOTE | 2022-04-30 12:40 | PC.NURSE ---
Spoke w pt's son Cali Florentino by phone [phone] about the plan of care for his mother. He reports being the youngest of her four children and the most responsible, so i kind of make all the decisions for her medically, even though I don't have a power of associate attorney, but the rest of them are in half-way . He acknowledges that she will be admitted to inpatient here and then transferred to inpatient with urology consult when capacity is available.
--- NOTE | 2022-04-30 13:00 | EXP.HP ---
History of Present Illness *Admission Date: 04/30/22 *Reason for visit:: Chief complaint: Hematuria *History of present illness: This is a 66-year-old female that presents to [facility] emergency department with concerns of hematuria from her nephrostomy tube. She was placed on Eliquis by [facility] on 04/20/2022 for identified PE on CT scan of chest. Her past medical history is significant for left upper lobe lung cancer with lobectomy July 2021, follow-up radiation and chemotherapy in the spring 2021. She also received immunotherapy. She also has generalized anxiety disorder on chronic benzodiazepine therapy, hypothyroidism and ongoing tobacco dependence. She presented to [facility] with chronic hydronephrosis and she underwent a cystoscopy with failed attempt at stent deployment. IR placed a nephrostomy tube on the right. Hypercalcemia was noted on discharge and plans to treat were identified. Her mental status is altered and nursing staff report that she is declining intervention. In the ED she is afebrile with normal heart rate and blood pressure and saturating appropriately on room air. Her initial chemistries identify potassium 3.3 BUN 28, creatinine 3.6 ([facility] baseline 2.7) calcium 15.4, white blood cell count 15.8 and hemoglobin 8.8. Her lactic acid is normal. CT scan of abdomen and pelvis identifies right percutaneous nephrostomy tube with right kidney edema concerning for pyelonephritis. [facility] was contacted for transition of care concerning tertiary care for higher level services including nephrology, urology and oncology. [facility] oncology service has accepted the patient for transfer and currently [facility] is experiencing bed capacity limitations. The patient has been placed on a waiting list with routine communication concerning her progress. 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 Pulmonary embolus Tobacco dependence Surgical History (Updated 04/30/22 @ 13:44 by Jason Beard MD) History of hysterectomy S/P appendectomy S/P cholecystectomy S/P lobectomy of lung S/P thyroidectomy Social History Smoking Status: Current every day smoker tobacco type: cigarettes packs per day: 1 second hand exposure: No alcohol intake: never substance use type: denies use current occupational status: other Travel in the last 8 weeks: None household members: none housing: apartment number of children: 4 current occupational exposures/hazards: No caffeine: Yes Review of Systems Review of Systems Review of systems:: unable to obtain Review of systems (narrative): Altered mental status Meds Home Medications and Allergies Home Medications Medication Instructions Recorded Confirmed Type vilazodone 40 mg tablet 40 mg PO DAILY Depression #30 tabs 02/12/22 04/30/22 Rx albuterol sulfate 1.25 mg/3 mL 1.25 mg inhalation QIDP PRN 04/30/22 04/30/22 History solution for nebulization breathing problems amlodipine 5 mg tablet 5 mg PO BID High blood pressure 04/30/22 04/30/22 History apixaban 5 mg tablet (Eliquis) 5 mg PO DAILY Blood thinner 04/30/22 04/30/22 History clonazepam 1 mg tablet (Klonopin) 1 mg PO QID Anxiety 04/30/22 04/30/22 History dextromethorphan-guaifenesin 30 1 tab PO Q12H congestion 04/30/22 04/30/22 History mg-600 mg tablet extended [id number] hr (Mucinex DM) fluticasone furoate 200 1 inh inhalation BID Breathing 04/30/22 04/30/22 History mcg-vilanterol 25 mcg/dose problems inhalation powder (Breo Ellipta) levothyroxine 11
--- NOTE | 2022-04-30 13:01 | PC.NURSE ---
PT IS LAYING IN THE BED RESTING, CALL LIGHT AT BEDSIDE
[2022-04-30 14:59] LABS: Hematocrit 27.9 % (37.0-47.0); Hemoglobin 9.1 g/dL (12.2-16.2)
[2022-04-30 15:22] LABS: Magnesium 2.4 mg/dl (1.6-2.3)
--- NOTE | 2022-04-30 15:25 | PC.NURSE ---
Addendum entered by Heide Pelayo RN 04/30/22 16:38: son returned call at 1611. code status and pt hx verified with son. pt is DNR. status verified with Dylan Contreras RN over telephone. Dr Beard notified of code status change Original Note: attempted to contact pt son about pt code status and history. call went directly to voicemail at this time.
[2022-04-30 15:28] LABS: C-Reactive Protein 159.8 mg/L (0-4)
[2022-04-30 16:39] LABS: 25-OH Vitamin D, Total 17.6 ng/mL (30-100); Procalcitonin 0.143 ng/mL (0.0-2.0)
[2022-04-30 16:46] LABS: Amphetamine/Metha Screen,Urine Negative ng/ml (<1000); Barbiturates Screen,Urine Negative ng/ml (<200); Benzodiazepines Screen,Urine Negative ng/ml (<200); Cannabinoid Screen,Urine Negative ng/ml (<50); Cocaine Screen,Urine Negative ng/ml (<300); Methadone Screen,Urine Negative ng/ml (<300); Opiate Screen,Urine Negative ng/ml (<300); Phencyclidine Screen,Urine Negative ng/ml (<25)
[2022-04-30 19:24] LABS: Anion Gap 10.9 mEq/L (5-15); Blood Urea Nitrogen 30 mg/dl (7-17); Carbon Dioxide 28 mmol/L (22.0-30.0); Chloride 106 mmol/L (98-107); Creatinine Clearance Estimated 16 mL/min (50-200); Estimated Glomerular Filt Rate 16 ml/min (>60); GFR (African American) 19 ML/MIN (>60); Glucose 129 mg/dl (74-100); Sodium 142 mmol/L (136-145)
[2022-04-30 19:26] LABS: Calcium 13.9 mg/dl (8.4-10.2)
[2022-04-30 19:27] LABS: Potassium 2.9 mmoL/L (3.5-5.1)
--- NOTE | 2022-04-30 19:53 | PC.NURSE ---
1923 received critical lab value, k+ 2.9 Ca 13.9. , name, and results repeated back and verified. 1928 notified Madelyn of critical lab value.
[2022-04-30 21:19] LABS: Hematocrit 24.2 % (37.0-47.0)
[2022-04-30 21:25] LABS: Hemoglobin 8.2 g/dL (12.2-16.2)
[2022-04-30 23:28] LABS: Anion Gap 8.3 mEq/L (5-15); Blood Urea Nitrogen 30 mg/dl (7-17); Carbon Dioxide 30 mmol/L (22.0-30.0); Chloride 107 mmol/L (98-107); Creatinine Clearance Estimated 16 mL/min (50-200); Estimated Glomerular Filt Rate 16 ml/min (>60); GFR (African American) 20 ML/MIN (>60); Glucose 129 mg/dl (74-100); Potassium 3.3 mmoL/L (3.5-5.1); Sodium 142 mmol/L (136-145)
[2022-05-01] VITALS (9 sets, daily range): BP systolic 121–136; BP diastolic 59–71; PULSE 94–110; RESP 17–22; TEMP 36.5–37.1; O2SAT 92–99; BMI 25.7
--- NOTE | 2022-05-01 05:48 | PC.NURSE ---
notified MOI Joshi of pt's postive blood cultures
[2022-05-01 06:13] LABS: Basophils % 0.4 % (0.1-2.0); Eosinophils # 0.3 K/mm3 (0.0-0.4); Eosinophils % 2.6 % (0.1-12.0); Hematocrit 22.8 % (37.0-47.0); Hemoglobin 7.6 g/dL (12.2-16.2); Lymphocytes # 0.7 K/mm3 (0.7-4.5); Mean Corpuscular HGB Conc 33.2 g/dL (31.8-35.4); Mean Corpuscular Hemoglobin 28.3 pg (27.0-31.2); Mean Corpuscular Volume 85.5 fl (81-99); Mean Platelet Volume 8.2 fl (7.4-10.4); Monocytes # 0.5 K/mm3 (0.1-1.0); Monocytes % 5.4 % (1.7-9.3); Neutrophils % 84.5 % (37.0-80.0); Platelet Count 228 K/mm3 (142-424); Red Blood Count 2.67 M/mm3 (4.20-5.40); Red Cell Distribution Width 16.7 % (11.5-17.5); White Blood Count 9.5 K/mm3 (4.8-10.8)
[2022-05-01 06:33] LABS: Chloride 114 mmol/L (98-107); Sodium 144 mmol/L (136-145)
[2022-05-01 06:36] LABS: Blood Urea Nitrogen 27 mg/dl (7-17); Creatinine Clearance Estimated 19 mL/min (50-200); Estimated Glomerular Filt Rate 18 ml/min (>60); GFR (African American) 22 ML/MIN (>60)
[2022-05-01 06:37] LABS: Calcium 11.8 mg/dl (8.4-10.2); Carbon Dioxide 26 mmol/L (22.0-30.0); Glucose 114 mg/dl (74-100)
--- NOTE | 2022-05-01 06:46 | PC.NURSE ---
notified MOI Joshi of pt's calcium of 11.8 and potassium of 3.0
[2022-05-01 08:32] LABS: Magnesium 2.1 mg/dl (1.6-2.3); Phosphorous 2.9 mg/dl (2.5-4.5)
--- NOTE | 2022-05-01 09:11 | PC.NURSE ---
[facility] called for pt update. vital signs, pertinent labs reported. no bed available at this time. [facility] will continue to call for updates on pt.
[2022-05-01 09:22] LABS: Vitamin B12 422 pg/mL (239-931)
--- NOTE | 2022-05-01 09:59 | EXP.PN ---
Subjective *Date: 05/01/22 *Time: 13:54 Interval history: Date of service May 01, 2022 The patient is more alert and interactive today. Nursing staff report that she remains afebrile with stable vital signs and saturating appropriately on room air. Her right nephrostomy output no longer identifies gross hematuria. She is producing improved urine output. I have reviewed and discussed her laboratory results. I personally interpreted her lab results as follows: A CBC with a normal white blood cell count of 9.5 and a drop in her hemoglobin down to 7.6 and a hematocrit of 22.8. Her platelet count is normal at 228. Her phosphorus is normal at 2.9. Her calcium has diminished to 11.8. Ionized calcium is still pending. Her glucose trend is under 150. Her electrolytes identify sodium 144 and potassium 3.0. Her BUN is 27 and her creatinine is downward trend with a creatinine of 2.6. Her urine culture still pending and her blood cultures are growing Klebsiella. Exam Data for Last 24 hours Vital signs and Labs for Last 24 Hours: Temp Pulse Resp BP Pulse Ox 97.7 F 94 H 17 122/70 96 05/01/22 07:27 05/01/22 08:30 05/01/22 07:27 05/01/22 07:27 05/01/22 08:30 Laboratory Results - last 24 hr 04/30/22 05:40: Magnesium 2.4 H, C-Reactive Protein 159.8 H 04/30/22 05:40: 25-OH Vitamin D Total 17.6 L 04/30/22 05:40: Procalcitonin 0.143 04/30/22 09:40: Urine Color Red, Urine Appearance Turbid, Urine pH 6.5, Ur Specific [place] 1.025, Urine Protein 3+, Urine Glucose (UA) Trace, Urine Ketones Trace, Urine Blood 3+, Urine Nitrate Positive, Urine Bilirubin Negative, Urine Urobilinogen 1.0, Ur Leukocyte Esterase 2+ A, Urine RBC Tntc, Urine WBC 5-10, Ur Squamous Epith Cells 3-5, Urine Bacteria 1+, Hyaline Casts O 04/30/22 09:40: Urine Opiates Screen Negative, Urine Methadone Screen Negative, Ur Barbituates Screen Negative, Ur Phencyclidine Scrn Negative, Ur Amphetamines Screen Negative, U Benzodiazepines Scrn Negative, Urine Cocaine Screen Negative, U Marijuana (THC) Screen Negative 04/30/22 14:50: Hgb 9.1 L, Hct 27.9 L 04/30/22 14:50: Blood Type O Negative 04/30/22 17:50: Sodium 142, Potassium 2.9 L*, Chloride 106, Carbon Dioxide 28, Anion Gap 10.9, BUN 30 H, Creatinine 3.00 H, Estimated Creat Clear 16, Estimated GFR 16 L*, Est GFR ( Amer) 19 L* D, Glucose 129 H, Calcium 13.9 H* 04/30/22 20:58: Hgb 8.2 L, Hct 24.2 L 04/30/22 23:05: Sodium 142, Potassium 3.3 L, Chloride 107, Carbon Dioxide 30, Anion Gap 8.3, BUN 30 H, Creatinine 2.90 H, Estimated Creat Clear 16, Estimated GFR 16 L*, Est GFR ( Amer) 20 L, Glucose 129 H, Calcium 13.0 H* 05/01/22 05:23: Sodium 144, Potassium 3.0 L, Chloride 114 H, Carbon Dioxide 26, Anion Gap 7.0, BUN 27 H, Creatinine 2.60 H, Estimated Creat Clear 19, Estimated GFR 18 L*, Est GFR ( Amer) 22 L, Glucose 114 H, Calcium 11.8 H 05/01/22 05:23: WBC 9.5 D, RBC 2.67 L, Hgb 7.6 L, Hct 22.8 L, MCV 85.5, MCH 28.3, MCHC 33.2, RDW 16.7, Plt Count 228, MPV 8.2, Neut % (Auto) 84.5 H, Lymph % (Auto) 7.0 L, [place] % (Auto) 5.4, Eos % (Auto) 2.6, Baso % (Auto) 0.4, Neut # (Auto) 8.0 H, Lymph # (Auto) 0.7, [place] # (Auto) 0.5, Eos # (Auto) 0.3, Baso # (Auto) 0.0 05/01/22 05:28: Phosphorus 2.9, Magnesium 2.1 D, Vitamin B12 422 I & O for Last 24 hours: Intake & Output 02/12/23 02/13/23 02/14/23 02/15/23 23:59 23:59 23:59 23:59 Intake Total 1009 / 1009 300 / 300 Output Total 1550 / 1550 825 / 825 Balance -541 / -541 -525 / -525 Weight 55.7 kg 57.9 kg Microbiology Reports for the Last 24 Hours: Microbiology 04/30/22 09:40 Urine,Catheterized Urine Culture - Preliminary 04/30/22 06:14 Blood Blood Culture - Preliminary 04/30/22 06:14 Blood Blood Culture - Preliminary Constitutional Constitutional: no acute distress, chronically ill appearing and cooperative Comments: Improved interactions but still not decisional *Routine HEENT Exam Head: Present normocephalic Eye: Present EOMI and PERR
[2022-05-01 13:22] LABS: Hematocrit 26.2 % (37.0-47.0); Hemoglobin 8.1 g/dL (12.2-16.2)
--- NOTE | 2022-05-01 16:49 | PC.NURSE ---
Addendum entered by Heide Pelayo RN 05/01/22 17:50: pt dislodged 2 iv's prior to lunch. new iv able to be restarted at that time as well. Original Note: pt mentation has waxed and waned throughout the shift. she will be alert and agreeable with staff and conversation, during the same conversation she will become distrusting and slightly agressive with her statements. Dr edmondson was asked to asked to address pt home meds r/t being on behavioral meds. lungs are clear, bowel sounds are active in all quads. nad noted. pt nephrosotmy tube is draining straw colored urine.
[2022-05-02] VITALS (7 sets, daily range): BP systolic 128–162; BP diastolic 67–90; PULSE 93–128; RESP 17–26; TEMP 36.7–36.9; O2SAT 94–100; BMI 26.4
--- NOTE | 2022-05-02 01:08 | PC.NURSE ---
2354 Notified COST ACCOUNTING CLERK that pt had become very aggressive, was pulling at her lines and was trying to get out of bed. COST ACCOUNTING CLERK states to administer 0.5 mg Ativan IV at this time. R/V/ and carried out. Vital signs: BP 122/69, HR 110, RR 20, O2 99% RA pt refuses temperature check. 0005 Pt states she would like to talk to COST ACCOUNTING CLERK, COST ACCOUNTING CLERK notified at this time. 0008 COST ACCOUNTING CLERK at bedside. Pt continues to be very combative attempting to get out of bed, pulling at nephrostomy tubing and IV. COST ACCOUNTING CLERK states to give 5mg Olanzapine IM at this time. R/V and carried out. 0112 Pt continues to be reluctant to care but is laying comfortably in bed. States she will wait for her doctor in the am.
--- NOTE | 2022-05-02 05:29 | PC.NURSE ---
0512 Notified Madelyn DELA CRUZ that pt had become more combative and aggressive again pulling at lines and attempting to get out of bed. FRAME ASSEMBLER states to administer 10mg Olanzapine IM at this time. R/V and carried out. Verified with Pepito Ford RN.
[2022-05-02 05:42] LABS: Basophils # 0.1 K/mm3 (0-0.2); Basophils % 0.6 % (0.1-2.0); Eosinophils # 1.1 K/mm3 (0.0-0.4); Eosinophils % 14.4 % (0.1-12.0); Hematocrit 22.9 % (37.0-47.0); Hemoglobin 7.3 g/dL (12.2-16.2); Lymphocytes % 12.2 % (10-50); Mean Corpuscular Hemoglobin 28.1 pg (27.0-31.2); Mean Corpuscular Volume 87.7 fl (81-99); Monocytes # 0.5 K/mm3 (0.1-1.0); Monocytes % 5.7 % (1.7-9.3); Neutrophils # 5.2 K/mm3 (1.8-7.8); Neutrophils % 67.1 % (37.0-80.0); Platelet Count 207 K/mm3 (142-424); Red Blood Count 2.61 M/mm3 (4.20-5.40); Red Cell Distribution Width 16.4 % (11.5-17.5); White Blood Count 7.8 K/mm3 (4.8-10.8)
[2022-05-02 06:04] LABS: Chloride 116 mmol/L (98-107); Potassium 3.6 mmoL/L (3.5-5.1); Sodium 142 mmol/L (136-145)
[2022-05-02 06:05] LABS: Blood Urea Nitrogen 21 mg/dl (7-17); Creatinine Clearance Estimated 25 mL/min (50-200); Estimated Glomerular Filt Rate 25 ml/min (>60); GFR (African American) 30 ML/MIN (>60)
[2022-05-02 06:06] LABS: Anion Gap 9.6 mEq/L (5-15); Calcium 10.7 mg/dl (8.4-10.2); Carbon Dioxide 20 mmol/L (22.0-30.0); Glucose 85 mg/dl (74-100)
--- NOTE | 2022-05-02 09:33 | PC.NURSE ---
IV catheter has been pulled out. Attempted to get a new iv but pt refused, began to get combative. Dr. Deng notified patient has no iv and refused new one.
--- NOTE | 2022-05-02 10:30 | SW/DCPLANNER ---
Addendum entered by [facility] 05/06/22 13:47: Randa damian/ [facility] stated that services will begin tomorrow for this patient. Addendum entered by [facility] 05/06/22 12:38: Info/order has been faxed to [facility]. Addendum entered by [facility] 05/06/22 10:14: Patient this AM is refusing placement and prefers to return home with home health services. Patient is alert and oriented and per OT (Bhavin) was able to walk to hallway this AM. Patient will discharge home and patient information/order will be faxed to [facility]. Patient will discharge home today. Addendum entered by [facility] 05/03/22 11:32: Kita damian/ [facility] can accept this patient and will start a precert today. I will call and update patient's son (Cali). I have updated Kita that patient will need IV Rocephin total of 7 days (will end on Friday05/06/22). Addendum entered by [facility] 05/03/22 08:26: This patient was able to answer the following questions appropriately: , name, location and reason for visit. I did explain to patient that PT evaluated her and recommended SNF level of care at time of discharge. Patient is agreeable to [facility] in [facility] OR [facility]. Patient information has been faxed to both facilities. Patient is also still on waiting list for transfer to . Original Note: MD has stated that this patient will more than likely need placement at time of discharge. PT/OT has been ordered for this AM. I will follow up with son once evaluations are completed. I did discuss the possible need for placement and he stated she has not been anywhere in the past. Son currently resides in [place] but would be willing to drive to [place] to assist with any paperwork. I will continue to follow up on this patient.
--- NOTE | 2022-05-02 10:36 | CT_ITS ---
FINAL REPORT TECHNIQUE: Thin section axial images were obtained from skull base to vertex without contrast. Coronal reconstruction images were obtained from the axial data. Exam was performed using dose reduction technique. CLINICAL HISTORY: Encephalopathy with hx Lung Cancer 2021, combative FINDINGS: There is no mass effect or midline shift. There is no hydrocephalus. There is no intracranial hemorrhage. The posterior fossa is without acute abnormality. The basilar cisterns are preserved. The soft tissues are without acute abnormality. There is a small amount of fluid in the right maxillary sinus. IMPRESSION: No acute intracranial abnormality. Right maxillary sinusitis. Reviewed, Interpreted and Dictated by Coreen Peng MD Transcribed by Shannan Mcguire Authenticated and [facility]
--- NOTE | 2022-05-02 10:36 | EXP.PN ---
Subjective *Date: 05/02/22 *Time: 10:45 Interval history: Date of service May 02, 2022 Nursing staff report that the patient remains afebrile with increased heart rates through the night with associated agitation and confusion. She required antipsychotic therapy through the night. They report stable blood pressures and she is saturating appropriately on room air. We have reviewed and discussed her morning laboratory results. I personally interpreted her morning labs as follows: CBC with a stable white blood cell count 7.8, hemoglobin 7.3, hematocrit 23, platelets 207. Her electrolytes are normal with a BUN of 21 and creatinine improved to 2.0. Her glucose trend is under 150. Her morning calcium is 10.7 which is improved from admission of 15. Exam Data for Last 24 hours Vital signs and Labs for Last 24 Hours: Temp Pulse Resp BP Pulse Ox 98.1 F 128 H 18 162/90 H 94 L 05/02/22 07:25 05/02/22 07:25 05/02/22 07:25 05/02/22 07:25 05/02/22 07:25 Laboratory Results - last 24 hr 04/30/22 14:50: Antibody Screen Positive 04/30/22 14:50: Antibody Identification See Comments 05/01/22 12:50: Hgb 8.1 L, Hct 26.2 L 05/02/22 05:36: WBC 7.8, RBC 2.61 L, Hgb 7.3 L, Hct 22.9 L, MCV 87.7, MCH 28.1, MCHC 32.0, RDW 16.4, Plt Count 207, MPV 8.0, Neut % (Auto) 67.1, Lymph % (Auto) 12.2, [place] % (Auto) 5.7, Eos % (Auto) 14.4 H, Baso % (Auto) 0.6, Neut # (Auto) 5.2, Lymph # (Auto) 1.0, [place] # (Auto) 0.5, Eos # (Auto) 1.1 H, Baso # (Auto) 0.1 05/02/22 05:36: Sodium 142, Potassium 3.6, Chloride 116 H, Carbon Dioxide 20 L, Anion Gap 9.6, BUN 21 H, Creatinine 2.00 H D, Estimated Creat Clear 25, Estimated GFR 25 L, Est GFR ( Amer) 30 L D, Glucose 85, Calcium 10.7 H I & O for Last 24 hours: Intake & Output 04/29/22 04/30/22 05/01/22 05/02/22 23:59 23:59 23:59 23:59 Intake Total 1009 / 1009 4115 / 4115 772 / 772 Output Total 1550 / 1550 3015 / 3315 925 / 925 Balance -541 / -541 1100 / 800 -153 / -153 Weight 55.7 kg 57.9 kg 59.4 kg Microbiology Reports for the Last 24 Hours: Microbiology 04/30/22 06:14 Blood Blood Culture - Preliminary Gram Negative Rods 04/30/22 06:14 Blood Blood Culture - Preliminary Gram Negative Rods 04/30/22 09:40 Urine,Catheterized Urine Culture - Preliminary Gram Negative Rods Gram Negative Rods#2 Constitutional Constitutional: no acute distress, chronically ill appearing and cooperative Comments: Improved interactions but still not decisional *Routine HEENT Exam Head: Present normocephalic Eye: Present EOMI and PERRL ENT: Present mucous membranes moist *Routine Neck Exam Neck: Present supple and trachea midline; Absent lymphadenopathy *Routine Respiratory Exam Respiratory: Present rhonchi, normal respiratory effort and symmetric chest movement *Routine Cardiovascular Exam Cardiovascular: Present RRR *Routine Abdominal Exam Abdominal: Present soft and normoactive bowel sounds; Absent tenderness Comments: Right nephrostomy tube and drain to bag *Routine Extremities Exam Extremities: Present full ROM, pulses intact and normal capillary refill; Absent cyanosis, clubbing or edema *Routine Skin Exam Skin: Present warm; Absent rash *Routine Neurological Exam Neurological: Present alert, altered mental status, moving all extremities, vision grossly intact, hearing grossly intact and normal speech; Absent sensory deficit or motor deficit Routine Psychiatric Exam Psychiatric: Present cooperative; Absent good judgment Assessment and Plan *Assessment and plan (1) Pyelonephritis of right kidney: Status: Acute Category: Medical Code(s): N12 - Tubulo-interstitial nephritis, not specified as acute or chronic (2) Acute blood loss anemia: Status: Acute Category: Medical Code(s): D62 - Acute posthemorrhagic anemia (3) Hypercalcemia:
--- NOTE | 2022-05-02 11:50 | PC.NURSE ---
RN x2 Aide x1 at bedside attempting to start an IV. Pt not cooperating and is combative. Duoneb tx not given due to Pt refusal and being combative.
--- NOTE | 2022-05-02 13:35 | HMH.PTEV ---
Physical Therapy Evaluation Rehab PT IP Evaluation Start: 05/02/22 10:40 Freq: ONCE Status: Active Protocol: Document 05/02/22 13:30 PHORNE (Rec: 05/02/22 13:35 PHORNE [id number]) Subjective/History History History 66 yowf adm to [facility] with renal failure, hyperkalcemia, and significantly AMS. She reports she lives alone, no steps to enter the home, and she is independent with all mobility without AD at baseline. She currently has R side nephrostomy tube in place. Subjective Subjective Pt c/o my belly is hurting this pm but did agree to mobility training. Rehab PT IP Eval Objective Appearance Patient Behavior Appropriate Patient Orientation Person,Birthday,Month Difficulty following instructions mild Speech Pattern Clear Ambulation Patient Able to Ambulate Yes Ambulation Observation IP General Gait Pattern Observation Shuffling Step Ambulation Distance (feet) 3 Ambulation Assistive Device None Ambulation Ability Minimal x 2 (25% assist) Balance Ability to Arise Able, uses arms to help Sitting Balance Steady, safe Standing Balance Steady, wide stance Dynamic Sitting Balance Ability Good Dynamic Standing Balance Ability Fair Transfers Bed Transfer Ability Contact Guard/Hand Hold Chair Transfer Ability Contact Guard/Hand Hold Sit to Stand Bed Transfer Ability Contact Guard/Hand Hold Sit to Stand Chair Transfer Ability Contact Guard/Hand Hold ROM All Extremities PT ROM Status WFL MMT All Extremities PT MMT WFL Rehab PT IP prob,goals,plan Problems Date of Evaluation: 05/02/22 PT IP Problems Bed Mobility,Transfers,Gait Rehab Potential Rehab Potential Good Plan PT Intervention Plan Bed Mobility,Transfers,Gait, Therapeutic Exercise PT Plan Frequency Daily Duration LOS Discharge Goals Bed Transfer Ability Supervision/Stand by Sit to Stand Chair Transfer Ability Supervision/Stand by Ambulation Assistive Device None Ambulation Distance (feet) 20 Discharge Plan PT Discharge Plan Pt is currently most appropriate for rehab placement once medically stable for d/c. She could return home if confusion and
--- NOTE | 2022-05-02 13:38 | HMH.OTEV ---
OT Inpatient Evaluation Rehab OT IP Evaluation Start: 05/02/22 10:40 Freq: ONCE Status: Active Protocol: Document 05/02/22 13:31 [facility] (Rec: 05/02/22 13:37 [facility] [id number]) Rehab OT IP Assessment Subjective History Pt agreeable to engage in therapy evaluation. Pt oriented onx 3 (, Name, and month). SRNA present due to recent combative behavior and confusion. Pt was admitted on 04/30/22 due to Hematuria. Prior to being in the hospital pt lived at home alone. Pt claims she was independent with all ADLS and IADLS. She did not require AE during functional transfers. She also still drove. Pt has a past medical history of: Chronic kidney disease, stage IV (severe) Chronically on benzodiazepine therapy COPD (chronic obstructive pulmonary disease) Generalized anxiety disorder Hiatal hernia with GERD Hydroureteronephrosis Hypercalcemia Hyperlipemia Hypothyroidism Major depressive disorder Primary squamous cell carcinoma of upper lobe of left lung Pulmonary embolus Tobacco dependenc Subjective Yes, I can. Objective Patient Orientation Person,Birthday,Month Upper Extremity Gross ROM WFL Bed Mobility bed mobility-scooting,bed mobility - supine/sit,bed mobility - rolling Assist Level Minimal x 1 (25% assist) Transfer Training Sit/Stand/Step Transfer,Sit/ Stand/Pivot Transfer Assist Level Minimal x 2 (25% assist) Rehab OT IP prob,goals,plan Problems Date of Evaluation: 05/02/22 OT IP Problems Bed Mobility,Transfers,Balance ,Self care,Safety Rehab Potential Rehab Potential Good Equipment Needs Assistive Devices
--- NOTE | 2022-05-02 14:33 | DIET.NUTRFU ---
Patient continues to have poor po intake, refusing meals again today. Last night nursing did report she drank the strawberry shake sent at dinner. Taylor shakes ordered with lunch and dinner daily, but did not consume at lunch. When attempted to visit she did not give any feedback. Nursing indicated she was having a bad day. She has been noted to be having some behavioral issues. Will continue shakes and attempt to provide food preferences to improve po intake. she did have visitor today at bedside.
--- NOTE | 2022-05-02 18:12 | PC.NURSE ---
New ultrasound IV obtained earlier in shift. Patient confused to situation and time but able to remember she was at [facility]. VS stable, patient remained on room air. Output yellow and clear from nephrostomy tube. Lung sounds clear. Patient had become combative at times during shift but able to be redirected and calmed down.
--- NOTE | 2022-05-02 22:46 | PC.NURSE ---
pt. continues to be confused and combative. notified manny, hospitalist and was ordered to give zyprexa 10 mg IM, medication was given @ 2142 and pt. continues to be restless and combative. notified manny again of pt. behavior, no new orders at this time.
[2022-05-03] VITALS (10 sets, daily range): BP systolic 115–140; BP diastolic 65–88; PULSE 78–115; RESP 20–24; TEMP 36.4–37.4; O2SAT 94–99; BMI 24.5
[2022-05-03 00:09] LABS: Calcium, Ionized 9.2 mg/dL (4.5-5.6)
[2022-05-03 07:04] LABS: Basophils # 0.1 K/mm3 (0-0.2); Basophils % 0.7 % (0.1-2.0); Eosinophils # 1.3 K/mm3 (0.0-0.4); Eosinophils % 14.7 % (0.1-12.0); Hematocrit 26.1 % (37.0-47.0); Hemoglobin 8.3 g/dL (12.2-16.2); Lymphocytes % 12.1 % (10-50); Mean Corpuscular HGB Conc 31.9 g/dL (31.8-35.4); Mean Corpuscular Hemoglobin 28.1 pg (27.0-31.2); Mean Corpuscular Volume 88.2 fl (81-99); Monocytes # 0.5 K/mm3 (0.1-1.0); Monocytes % 5.5 % (1.7-9.3); Neutrophils # 5.8 K/mm3 (1.8-7.8); Neutrophils % 67.1 % (37.0-80.0); Platelet Count 283 K/mm3 (142-424); Red Blood Count 2.96 M/mm3 (4.20-5.40); Red Cell Distribution Width 16.3 % (11.5-17.5); White Blood Count 8.6 K/mm3 (4.8-10.8)
[2022-05-03 07:22] LABS: Chloride 119 mmol/L (98-107); Potassium 3.2 mmoL/L (3.5-5.1); Sodium 144 mmol/L (136-145)
[2022-05-03 07:25] LABS: Anion Gap 10.2 mEq/L (5-15); Blood Urea Nitrogen 18 mg/dl (7-17); Calcium 10.2 mg/dl (8.4-10.2); Carbon Dioxide 18 mmol/L (22.0-30.0); Creatinine Clearance Estimated 26 mL/min (50-200); Estimated Glomerular Filt Rate 28 ml/min (>60); GFR (African American) 34 ML/MIN (>60); Glucose 97 mg/dl (74-100)
--- NOTE | 2022-05-03 09:22 | PC.NURSE ---
Patient pleasantly confused and cooperative this morning.
--- NOTE | 2022-05-03 12:03 | EXP.PN ---
Subjective *Date: 05/03/22 *Time: 12:13 Interval history: Date of service May 03, 2022 The patient is sitting up in her bedside chair. She voices no acute events overnight. She is quite conversive this morning and is able to identify follow-up appointments with [facility] concerning her lung cancer and previous hospitalization experience. She talks about her son Cali. She is interactive and pleasant and follows instruction with no difficulty. She reports that her right percutaneous drain identifies no further blood and plenty of clear/yellow urine. Nursing staff report that she remains afebrile with stable vital signs and saturating appropriately on room air. They identify increased mobility. We have reviewed and discussed her morning labs and I personally interpreted her labs as follows: A CBC with a normal white blood cell count 8.6, improved hemoglobin of 8.3, hematocrit 26.1 and platelet count 283. Her chemistry identifies a potassium 3.2 which is being replaced with a carbon dioxide of 18, normal anion gap, BUN of 18 and a creatinine that has improved to 1.8 (baseline creatinine 1.2). Her head CT is personally interpreted and identifies no acute disease. Exam Data for Last 24 hours Vital signs and Labs for Last 24 Hours: Temp Pulse Resp BP Pulse Ox 98.3 F 92 H 20 115/65 94 L 05/03/22 11:49 05/03/22 11:49 05/03/22 11:49 05/03/22 11:49 05/03/22 11:49 Laboratory Results - last 24 hr 04/30/22 14:50: Ionized Calcium 9.2 H 05/03/22 06:40: WBC 8.6, RBC 2.96 L, Hgb 8.3 L, Hct 26.1 L, MCV 88.2, MCH 28.1, MCHC 31.9, RDW 16.3, Plt Count 283 D, MPV 8.0, Neut % (Auto) 67.1, Lymph % (Auto) 12.1, [place] % (Auto) 5.5, Eos % (Auto) 14.7 H, Baso % (Auto) 0.7, Neut # (Auto) 5.8, Lymph # (Auto) 1.0, [place] # (Auto) 0.5, Eos # (Auto) 1.3 H, Baso # (Auto) 0.1 05/03/22 06:40: Sodium 144, Potassium 3.2 L, Chloride 119 H, Carbon Dioxide 18 L, Anion Gap 10.2, BUN 18 H, Creatinine 1.80 H, Estimated Creat Clear 26, Estimated GFR 28 L, Est GFR ( Amer) 34 L, Glucose 97, Calcium 10.2 I & O for Last 24 hours: Intake & Output 04/30/22 05/01/22 05/02/22 05/03/22 23:59 23:59 23:59 23:59 Intake Total 1009 / 1009 4115 / 4115 1277 / 2305 1148 / 1148 Output Total 1550 / 1550 3015 / 3315 2405 / 2655 630 / 630 Balance -541 / -541 1100 / 800 -1128 / -350 518 / 518 Weight 55.7 kg 57.9 kg 59.4 kg 55.3 kg Microbiology Reports for the Last 24 Hours: Microbiology 04/30/22 09:40 Urine,Catheterized Urine Culture - Final Klebsiella pneumoniae Klebsiella oxytoca 04/30/22 06:14 Blood Blood Culture - Preliminary Klebsiella pneumoniae 04/30/22 06:14 Blood Blood Culture - Preliminary Klebsiella pneumoniae Constitutional Constitutional: no acute distress, chronically ill appearing and cooperative Comments: Improved interactions with appropriate decision-making *Routine HEENT Exam Head: Present normocephalic Eye: Present EOMI and PERRL ENT: Present mucous membranes moist *Routine Neck Exam Neck: Present supple and trachea midline; Absent lymphadenopathy *Routine Respiratory Exam Respiratory: Present rhonchi, normal respiratory effort and symmetric chest movement *Routine Cardiovascular Exam Cardiovascular: Present RRR *Routine Abdominal Exam Abdominal: Present soft and normoactive bowel sounds; Absent tenderness Comments: Right nephrostomy tube and drain to bag *Routine Extremities Exam Extremities: Present full ROM, pulses intact and normal capillary refill; Absent cyanosis, clubbing or edema *Routine Skin Exam Skin: Present warm; Absent rash *Routine Neurological Exam Neurological: Present alert, moving all extremities, vision grossly intact, hearing grossly intact and normal speech; Absent sensory deficit or motor deficit Routine Psychiatric Exam Psychiatric: Present normal affect, normal thought process, co
--- NOTE | 2022-05-03 13:26 | PC.NURSE ---
Patient up in chair with chair alarm. Chair alarm activated and patient found on floor, on all fours. Patient assisted back to chair. Patient assisted back to bed with PT. 1:[address] Beard notified. No new orders received.
--- NOTE | 2022-05-03 15:19 | PC.NURSE ---
Pt continues to be impulsive and confused. custom stock maker at bedside. Purewick in place
--- NOTE | 2022-05-03 16:40 | DIET.NUTRFU ---
Checked in with patient after lunch today and she reported improvement on meal intake consumed chicken and mac and cheese. Nursing still only noted 10% but felt there was improvement. She seemed less negative today and had menu selection filled out. Shakes are still ordered for lunch and dinner
--- NOTE | 2022-05-03 17:17 | PC.NURSE ---
Pt ate well for dinner when she had help feeding herself and with encouragement to eat. She drank in total 360 and ate 25%. She drank some water, coffee, and some of the strawberry shake on her meal tray. She enjoyed the chicken mixed with her mashed potatoes and eating some green beans as well as vanilla ice cream. Dulce Maria Desouza SRNA
--- NOTE | 2022-05-03 19:17 | PC.NURSE ---
pt has been on 1:1 observation since 1400 this afternoon after fall. Dulce Maria Desouza SRNA
[2022-05-04] VITALS (11 sets, daily range): BP systolic 112–135; BP diastolic 53–67; PULSE 88–106; RESP 18–22; TEMP 36.7–37.1; O2SAT 93–100; BMI 26.2
--- NOTE | 2022-05-04 05:40 | PC.NURSE ---
pt oriented to self, 1:1 sitter at bedside, haldol given once at beginning of shift d/t agitation. RA. nephrostomy tube to right side. vss.
[2022-05-04 08:21] LABS: Chloride 124 mmol/L (98-107); Potassium 4.1 mmoL/L (3.5-5.1); Sodium 145 mmol/L (136-145)
[2022-05-04 08:24] LABS: Anion Gap 6.1 mEq/L (5-15); Blood Urea Nitrogen 14 mg/dl (7-17); Calcium 9.3 mg/dl (8.4-10.2); Carbon Dioxide 19 mmol/L (22.0-30.0); Creatinine Clearance Estimated 30 mL/min (50-200); Estimated Glomerular Filt Rate 30 ml/min (>60); GFR (African American) 36 ML/MIN (>60); Glucose 87 mg/dl (74-100)
--- NOTE | 2022-05-04 10:32 | P.PN_ITS ---
Subjective *Date: 05/04/22 *Time: 10:32 Medical Exam Vital signs and Labs for Last 24 Hours: Vital Signs Temp Pulse Pulse Resp BP Pulse Ox 05/04/22 08:00 97 05/04/22 07:11 98.0 F 99 H 19 133/60 96 05/04/22 06:21 95 H 05/04/22 06:21 95 H 05/04/22 06:21 95 05/03/22 20:00 98.5 F 103 H 22 128/73 97 05/04/22 03:58 98.2 F 101 H 20 135/67 96 05/04/22 00:00 98.4 F 88 22 112/53 L 96 05/03/22 23:25 86 05/03/22 23:25 84 05/03/22 18:17 100 H 05/03/22 18:17 100 H 05/03/22 16:00 98.7 F 97 H 20 131/66 99 05/03/22 11:49 98.3 F 92 H 20 115/65 94 L 05/03/22 11:20 80 05/03/22 11:20 78 Intake and Output 05/03/22 05/04/22 05/04/22 23:59 07:59 15:59 Intake Total 1490 / 2848 150 / 630 480 / 630 Output Total 500 / 1630 1000 / 1000 0 / 1000 Balance 990 / 1218 -850 / -370 480 / -370 Intake: Intake, Oral Amount 360 / 690 150 / 630 480 / 630 Intake, Total IV Amount 1130 / 2158 0.9 % Sodium Chloride 1,000 ml 1030 / 2058 @ 100 mls/hr IV .Q10H [facility] Rx#: [id number] Ceftriaxone Sodium 2 gm In 0.9 100 / 100 % Sodium Chloride 100 ml @ 200 mls/hr IV Q24H [facility] Rx#:[id number] Output: Output, Urine Amount 500 / 880 500 / 500 0 / 500 Output, Urine Amount (Catheter) 500 / 500 nephrostomy 500 / 500 Other: Number of Unmeasured Voids 1 1 1 Weight 59.1 kg Patient Weight 05/04/22 23:59 Weight 59.1 kg Laboratory Results - last 24 hr 05/04/22 07:52: Sodium 145, Potassium 4.1 D, Chloride 124 H, Carbon Dioxide 19 L, Anion Gap 6.1, BUN 14, Creatinine 1.70 H, Estimated Creat Clear 30, Estimated GFR 30 L, Est GFR ( Amer) 36 L, Glucose 87, Calcium 9.3 I & O for Labs for Last 24 Hours: Intake & Output 05/01/22 05/02/22 05/03/22 05/04/22 23:59 23:59 23:59 23:59 Intake Total 4115 / 4115 1277 / 2305 2698 / 2848 630 / 630 Output Total 3015 / 3315 2405 / 2655 1130 / 1630 1000 / 1000 Balance 1100 / 800 -1128 / -350 1568 / 1218 -370 / -370 Weight 57.9 kg 59.4 kg 55.3 kg 59.1 kg Microbiology Reports for the Last 24 Hours: Microbiology 04/30/22 09:40 Urine,Catheterized Urine Culture - Final Klebsiella pneumoniae Klebsiella oxytoca 04/30/22 06:14 Blood Blood Culture - Preliminary Klebsiella pneumoniae 04/30/22 06:14 Blood Blood Culture - Preliminary Klebsiella pneumoniae The patient's infection will respond to the chosen ABx?: Yes Is the patient receiving the right drug, dose, and route?: Yes Could a more targeted ABx be ordered?: No (CHANGED TO LEVAQUIN TO TRANSITION TO PO)
--- NOTE | 2022-05-04 14:51 | EXP.ACUTE.PN ---
Subjective *Date: 05/04/22 *Time: 14:51 Interval history: Hemodynamically stable this morning. Alert and oriented to self. Interactive on exam. No acute complaints. Denies chest pain, confusion, shortness of breath, nausea or vomiting. Tolerating p.o. intake. Afebrile. Medical Exam Vital signs and Labs for Last 24 Hours: Vital Signs Temp Pulse Pulse Resp BP Pulse Ox 05/04/22 11:59 92 H 05/04/22 11:59 92 H 05/04/22 11:59 93 L 05/04/22 11:47 98.5 F 95 H 18 123/66 100 05/04/22 08:00 97 05/04/22 07:11 98.0 F 99 H 19 133/60 96 05/04/22 06:21 95 H 05/04/22 06:21 95 H 05/04/22 06:21 95 05/03/22 20:00 98.5 F 103 H 22 128/73 97 05/04/22 03:58 98.2 F 101 H 20 135/67 96 05/04/22 00:00 98.4 F 88 22 112/53 L 96 05/03/22 23:25 86 05/03/22 23:25 84 05/03/22 18:17 100 H 05/03/22 18:17 100 H 05/03/22 16:00 98.7 F 97 H 20 131/66 99 Intake and Output 05/03/22 05/04/22 05/04/22 23:59 07:59 15:59 Intake Total 1490 / 2848 150 / 990 840 / 990 Output Total 500 / 1630 1000 / 1000 0 / 1000 Balance 990 / 1218 -850 / -10 840 / -10 Intake: Intake, Oral Amount 360 / 690 150 / 990 840 / 990 Intake, Total IV Amount 1130 / 2158 0.9 % Sodium Chloride 1,000 ml 1030 / 2058 @ 100 mls/hr IV .Q10H [facility] Rx#: [id number] Ceftriaxone Sodium 2 gm In 0.9 100 / 100 % Sodium Chloride 100 ml @ 200 mls/hr IV Q24H [facility] Rx#:[id number] Output: Output, Urine Amount 500 / 880 500 / 500 0 / 500 Output, Urine Amount (Catheter) 500 / 500 nephrostomy 500 / 500 Other: Number of Unmeasured Voids 1 1 1 Weight 59.1 kg Patient Weight 05/04/22 23:59 Weight 59.1 kg Laboratory Results - last 24 hr 05/04/22 07:52: Sodium 145, Potassium 4.1 D, Chloride 124 H, Carbon Dioxide 19 L, Anion Gap 6.1, BUN 14, Creatinine 1.70 H, Estimated Creat Clear 30, Estimated GFR 30 L, Est GFR ( Amer) 36 L, Glucose 87, Calcium 9.3 I & O for Labs for Last 24 Hours: Intake & Output 05/01/22 05/02/22 05/03/22 05/04/22 23:59 23:59 23:59 23:59 Intake Total 4115 / 4115 1277 / 2305 2698 / 2848 990 / 990 Output Total 3015 / 3315 2405 / 2655 1130 / 1630 1000 / 1000 Balance 1100 / 800 -1128 / -350 1568 / 1218 -10 / -10 Weight 57.9 kg 59.4 kg 55.3 kg 59.1 kg Constitutional: Present no acute distress, average body habitus, chronically ill appearing and cooperative Head: Present atraumatic and normocephalic ENT: Present normal exam Neck: Present normal inspection Respiratory: Present normal respiratory effort; Absent accessory muscle use, rhonchi, wheezes or crackles Cardiac: Present Reg Rate and Rhythm GI: Present soft, tenderness (diffuse, non-focal) and normal bowel sounds Extremities: Present normal inspection and full ROM Skin: Present intact; Absent erythema Neuro: Present Grossly Intact, alert, awake and moves all extremities Additional Findings:: Right nephrostomy tube intact with no surrounding erythema or leak. Draining light yellow urine. No bloody discharge Assessment and Plan *Assessment and plan (1) Bacteremia due to Klebsiella pneumoniae: Status: Acute Category: Medical Code(s): R78.81 - Bacteremia; B96.1 - Klebsiella pneumoniae [K. pneumoniae] as the cause of diseases classified elsewhere (2) Pyelonephritis of right kidney: Status: Acute Category: Medical Code(s): N12 - Tubulo-interstitial nephritis, not specified as acute or chronic (3) Acute blood loss anemia: Status: Acute Category: Medical Code(s): D62 - Acute posthemorrhagic anemia (4) Hypercalcemia: Status: Acute Category: Medical Code(s): E83.52 - Hypercalcemia (5) Metabolic encephalopathy: Status: Acute Category: Medical Code(s): G93.41 - Metabolic encephalopathy (6) Renal hemorrhage, right: Status: Acute C
[2022-05-04 15:32] LABS: Intact Parathyroid Hormone 9.8 pg/mL (7.5-53.5)
[2022-05-05] VITALS (10 sets, daily range): BP systolic 110–133; BP diastolic 53–70; PULSE 72–110; RESP 18–20; TEMP 36.6–37; O2SAT 95–100; BMI 26.6
--- NOTE | 2022-05-05 06:26 | PC.NURSE ---
Pt has not voiced any c/o to staff t/o night. Pt has been pleasantly confused but easily reoriented. Pt has ambulated to BR with standby assist. Urine to nephrostomy is clear and straw colored. Bed alarm on for pt safety. Call light within reach.
[2022-05-05 07:41] LABS: Basophils # 0.1 K/mm3 (0-0.2); Basophils % 0.9 % (0.1-2.0); Eosinophils # 1.3 K/mm3 (0.0-0.4); Eosinophils % 12.2 % (0.1-12.0); Hematocrit 22.5 % (37.0-47.0); Hemoglobin 7.1 g/dL (12.2-16.2); Lymphocytes # 1.6 K/mm3 (0.7-4.5); Lymphocytes % 15.3 % (10-50); Mean Corpuscular HGB Conc 31.5 g/dL (31.8-35.4); Mean Corpuscular Hemoglobin 27.6 pg (27.0-31.2); Mean Corpuscular Volume 87.6 fl (81-99); Mean Platelet Volume 7.8 fl (7.4-10.4); Monocytes # 0.5 K/mm3 (0.1-1.0); Monocytes % 4.5 % (1.7-9.3); Neutrophils # 6.9 K/mm3 (1.8-7.8); Neutrophils % 67.2 % (37.0-80.0); Platelet Count 273 K/mm3 (142-424); Red Blood Count 2.57 M/mm3 (4.20-5.40); Red Cell Distribution Width 16.5 % (11.5-17.5); White Blood Count 10.3 K/mm3 (4.8-10.8)
[2022-05-05 07:47] LABS: Chloride 120 mmol/L (98-107); Potassium 3.6 mmoL/L (3.5-5.1); Sodium 142 mmol/L (136-145)
[2022-05-05 07:49] LABS: Blood Urea Nitrogen 13 mg/dl (7-17); Creatinine Clearance Estimated 25 mL/min (50-200); Estimated Glomerular Filt Rate 25 ml/min (>60); GFR (African American) 30 ML/MIN (>60)
[2022-05-05 07:50] LABS: Alanine Aminotransferase 21 U/L (12-78); Albumin/Globulin Ratio 0.9 (1.1-1.8); Alkaline Phosphatase 111 U/L (38-126); Anion Gap 8.6 mEq/L (5-15); Aspartate Amino Transferase 36 U/L (14-36); Bilirubin,Total 0.3 mg/dl (0.2-1.3); Calcium 9.3 mg/dl (8.4-10.2); Carbon Dioxide 17 mmol/L (22.0-30.0); Globulin 3.3 g/dL (1.3-3.2); Glucose 122 mg/dl (74-100); Magnesium 1.9 mg/dl (1.6-2.3); Total Protein,Serum 6.3 g/dl (6.3-8.2)
--- NOTE | 2022-05-05 14:25 | EXP.ACUTE.PN ---
Subjective *Date: 05/05/22 *Time: 14:25 Interval history: Tolerating p.o. intake. In bedside chair on exam this morning. Feeling overall well. Remains afebrile. Denies shortness of breath or chest pain. Still complains of mild abdominal bloating and discomfort. Medical Exam Vital signs and Labs for Last 24 Hours: Vital Signs Temp Pulse Pulse Resp BP Pulse Ox 05/05/22 11:15 98.0 F 74 18 119/56 L 98 05/05/22 07:50 102 H 95 05/05/22 07:20 98.4 F 105 H 18 123/66 98 05/05/22 06:41 101 H 05/05/22 06:41 99 H 05/05/22 06:41 96 05/05/22 04:00 98.5 F 102 H 18 121/66 98 05/05/22 00:14 88 05/05/22 00:14 89 05/05/22 00:00 98.6 F 100 H 20 110/53 L 98 05/04/22 20:00 106 H 96 05/04/22 20:00 98.7 F 106 H 20 118/57 L 96 05/04/22 18:50 90 05/04/22 18:49 93 H 05/04/22 15:42 98.4 F 101 H 19 126/61 97 Intake and Output 05/04/22 05/05/22 05/05/22 23:59 07:59 15:59 Intake Total 480 / 1470 360 / 720 360 / 720 Output Total 300 / 1300 0 Balance 180 / 170 360 / 719 359 / 719 Intake: Intake, Oral Amount 480 / 1470 360 / 720 360 / 720 Output: Output, Urine Amount 300 / 800 0 1 Other: Number of Unmeasured Voids 1 1 0 Weight 59.931 kg Patient Weight 05/05/22 23:59 Weight 59.931 kg Laboratory Results - last 24 hr 05/04/22 11:47: PTH Intact 9.8 05/05/22 07:23: WBC 10.3, RBC 2.57 L, Hgb 7.1 L, Hct 22.5 L, MCV 87.6, MCH 27.6, MCHC 31.5 L, RDW 16.5, Plt Count 273, MPV 7.8, Neut % (Auto) 67.2, Lymph % (Auto) 15.3, [place] % (Auto) 4.5, Eos % (Auto) 12.2 H, Baso % (Auto) 0.9, Neut # (Auto) 6.9, Lymph # (Auto) 1.6, [place] # (Auto) 0.5, Eos # (Auto) 1.3 H, Baso # (Auto) 0.1 05/05/22 07:23: Sodium 142, Potassium 3.6, Chloride 120 H, Carbon Dioxide 17 L, Anion Gap 8.6, BUN 13, Creatinine 2.00 H, Estimated Creat Clear 25, Estimated GFR 25 L, Est GFR ( Amer) 30 L, Glucose 122 H D, Calcium 9.3, Magnesium 1.9, Total Bilirubin 0.3, AST 36, ALT 21, Alkaline Phosphatase 111, Total Protein 6.3, Albumin 3.0 L, Globulin 3.3 H, Albumin/Globulin Ratio 0.9 L I & O for Labs for Last 24 Hours: Intake & Output 05/02/22 05/03/22 05/04/22 05/05/22 23:59 23:59 23:59 23:59 Intake Total 1277 / 2305 2698 / 2848 1470 / 1470 720 / 720 Output Total 2405 / 2655 1130 / 1630 1300 / 1300 Balance -1128 / -350 1568 / 1218 170 / 170 719 / 719 Weight 59.4 kg 55.3 kg 59.1 kg 59.931 kg Constitutional: Present no acute distress, average body habitus, chronically ill appearing and cooperative Head: Present atraumatic and normocephalic ENT: Present normal exam Neck: Present normal inspection Respiratory: Present normal respiratory effort; Absent accessory muscle use, rhonchi, wheezes or crackles Cardiac: Present Reg Rate and Rhythm GI: Present soft, tenderness (diffuse, non-focal) and normal bowel sounds Extremities: Present normal inspection and full ROM Skin: Present intact; Absent erythema Neuro: Present Grossly Intact, alert, awake and moves all extremities Additional Findings:: Right nephrostomy tube intact with no surrounding erythema or leak. Draining light yellow urine. No bloody discharge Assessment and Plan *Assessment and plan (1) Bacteremia due to Klebsiella pneumoniae: Status: Acute Category: Medical Code(s): R78.81 - Bacteremia; B96.1 - Klebsiella pneumoniae [K. pneumoniae] as the cause of diseases classified elsewhere (2) Pyelonephritis of right kidney: Status: Acute Category: Medical Code(s): N12 - Tubulo-interstitial nephritis, not specified as acute or chronic (3) Acute blood loss anemia: Status: Acute Category: Medical Code(s): D62 - Acute posthemorrhagic anemia (4) Hypercalcemia: Status: Acute Category: Medical Code(s): E83.52 - Hypercalcemia (5) Metabolic encephalopathy: Status: Acute Category: Medical Cod
--- NOTE | 2022-05-05 18:37 | PC.NURSE ---
pt has been pleasant this shift. no complaints this shift. ambulating to restroom with standby assist for safety. bed alarm in place.
[2022-05-06] VITALS: BP 123/71; PULSE 101; RESP 18; TEMP 37.2; O2SAT 98
[2022-05-06 04:00] VITALS: BP 116/65; PULSE 102; RESP 20; TEMP 36.7; O2SAT 99; BMI 26.6
[2022-05-06 06:04] VITALS: PULSE 101; PULSE 102; O2SAT 98
--- NOTE | 2022-05-06 06:22 | PC.NURSE ---
No acute changes. Pt continues to be pleasantly confused. No c/o voiced t/o night to staff. Bed alarm on for pt safety. Call light within reach.
[2022-05-06 06:45] LABS: Chloride 116 mmol/L (98-107); Potassium 3.6 mmoL/L (3.5-5.1); Sodium 141 mmol/L (136-145)
[2022-05-06 06:47] LABS: Alanine Aminotransferase 23 U/L (12-78); Aspartate Amino Transferase 46 U/L (14-36); Blood Urea Nitrogen 11 mg/dl (7-17); Creatinine Clearance Estimated 30 mL/min (50-200); Estimated Glomerular Filt Rate 30 ml/min (>60); GFR (African American) 36 ML/MIN (>60)
[2022-05-06 06:48] LABS: Albumin Level 3.2 g/dl (3.5-5.0); Albumin/Globulin Ratio 0.9 (1.1-1.8); Alkaline Phosphatase 119 U/L (38-126); Anion Gap 10.6 mEq/L (5-15); Bilirubin,Total 0.3 mg/dl (0.2-1.3); Calcium 9.5 mg/dl (8.4-10.2); Carbon Dioxide 18 mmol/L (22.0-30.0); Globulin 3.4 g/dL (1.3-3.2); Glucose 110 mg/dl (74-100); Total Protein,Serum 6.6 g/dl (6.3-8.2)
[2022-05-06 06:52] LABS: Basophils # 0.1 K/mm3 (0-0.2); Basophils % 0.8 % (0.1-2.0); Eosinophils # 1.5 K/mm3 (0.0-0.4); Eosinophils % 12.4 % (0.1-12.0); Hematocrit 23.8 % (37.0-47.0); Hemoglobin 7.7 g/dL (12.2-16.2); Lymphocytes # 1.5 K/mm3 (0.7-4.5); Mean Corpuscular HGB Conc 32.2 g/dL (31.8-35.4); Mean Corpuscular Hemoglobin 27.8 pg (27.0-31.2); Mean Corpuscular Volume 86.3 fl (81-99); Mean Platelet Volume 8.5 fl (7.4-10.4); Monocytes # 0.7 K/mm3 (0.1-1.0); Monocytes % 5.3 % (1.7-9.3); Neutrophils # 8.6 K/mm3 (1.8-7.8); Neutrophils % 69.5 % (37.0-80.0); Platelet Count 326 K/mm3 (142-424); Red Blood Count 2.76 M/mm3 (4.20-5.40); Red Cell Distribution Width 16.7 % (11.5-17.5); White Blood Count 12.4 K/mm3 (4.8-10.8)
[2022-05-06 07:18] VITALS: BP 114/87; PULSE 108; RESP 18; TEMP 36.8; O2SAT 99
--- NOTE | 2022-05-06 08:41 | EXP.DC.SUM ---
General Admission date:: 04/30/22 Discharge date: 05/06/22 HPI HPI HPI: This is a 66-year-old female that presents to [facility] emergency department with concerns of hematuria from her nephrostomy tube.? She was placed on Eliquis by [facility] on 04/20/2022 for identified PE [address] CT scan of chest.? Her past medical history is significant for left upper lobe lung cancer with lobectomy July 2021, follow-up radiation and chemotherapy in the spring 2021.? She also received immunotherapy.? She also has generalized anxiety disorder on chronic benzodiazepine therapy, hypothyroidism and ongoing tobacco dependence.? She presented to [facility] with chronic hydronephrosis and she underwent a cystoscopy with failed attempt at stent deployment.? IR placed a nephrostomy tube on the right.? Hypercalcemia was noted on discharge and plans to treat were identified.? Her mental status is altered and nursing staff report that she is declining intervention.? In the ED she is afebrile with normal heart rate and blood pressure and saturating appropriately on room air.? Her initial chemistries identify potassium 3.3 BUN 28, creatinine 3.6 ([facility] baseline 2.7) calcium 15.4, white blood cell count 15.8 and hemoglobin 8.8.? Her lactic acid is normal.? CT scan of abdomen and pelvis identifies right percutaneous nephrostomy tube with right kidney edema concerning for pyelonephritis.? [facility] was contacted for transition of care concerning tertiary care for higher level services including nephrology, urology and oncology.? The [facility] oncology service has accepted the patient for transfer and currently [facility] is experiencing bed capacity limitations.? The patient has been placed on a waiting list with routine communication concerning her progress. Hospital Course Hospital Course Hospital Course: This is a 66-year-old female who presents to [facility] emergency department with concerns of blood from her right nephrostomy tube.? A recent [facility] admission is noted and patient discharged on factor Xa inhibitor therapy for identified PE on CTA of chest.? Her discharge calcium was noted as well.? Clinically improving.? Awaiting discharge to nursing facility, pre-CERT pending.? Problems addressed are as follows: Klebsiella bacteremia Right pyelonephritis Patient found to have Klebsiella bacteremia and UTI. Cultures sensitive to ceftriaxone and fluoroquinolones. Patient was transitioned to Levaquin to complete 10-day course. Has 4 more days of antibiotics to complete orally after discharge. Symptoms defervesced with no fever for at least 48 hours prior to discharge. Acute blood loss anemia On Eliquis for PE. Found to have bleeding from right nephrostomy tube. Held anticoagulation at this time. Hemoglobin has remained stable without need for transfusion. No oxygen requirement. Feel risk of resuming anticoagulation outweighs benefit at this time. Unless there is clinical change, increased shortness of breath, would hold on anticoagulation pending further evaluation with her doctors at . -Continue PPI therapy Severe hypercalcemia Stable at 9.3.? Down from 15 on admission. Responded well to treatment. No further treatment at this time. PTH within normal limits at 9.3. PTHrp pending at time of discharge. Metabolic encephalopathy Likely secondary to hypercalcemia. Improved during admission. On chronic benzodiazepine therapy. Resumed at lower dose. Has tolerated well. Prescription sent to med with his pharmacy to continue clonazepam 3 times daily. Acute kidney injury Chronic kidney disease stage IV. Kidney function has stabilized. Creatinine 1.7 on day of discharge. Appears to be close to her baseline. Recommend avoiding NSAID therapy. Would benefit from repeat labs in a week. Pulmonary embolus CTA of chest from [facility] reviewed, Holding factor Xa inhibitor therapy with gross hematuria and diminishe
[2022-05-06 09:21] LABS: Coronavirus 19, PCR Not Detected (NotDetected); Influenza A, PCR Not Detected (NotDetected); Influenza B, PCR Not Detected (NotDetected)
--- NOTE | 2022-05-06 10:17 | DIET.NUTRFU ---
Patients po intake on cardiac diet has improved to >50% for most meals. Spoke to nursing to review BM, according to nursing she had BM on the and patient reported one on . Possible discharge today with placement. No dietary discharge needs at this time.
[2022-05-06 11:04] VITALS: BP 132/71; PULSE 99; RESP 17; TEMP 36.8; O2SAT 100
[2022-05-06 11:39] VITALS: PULSE 82; PULSE 88
--- NOTE | 2022-05-06 13:05 | HMH.PHAINT1 ---
Pharmacy Intervention Comments: Discussed discharge medications with patient, patient verbalized understanding and had no questions at this time.
--- NOTE | 2022-05-07 13:15 | CARE MANAGER ---
Contacted patient related to hospital discharge. Patient seemed somewhat confused. The home health nurse happened to be there and got on the phone. She states she just got there, but she would call back if she has any questions. BRIANDA Santiago
[2022-05-11 01:34] LABS: PTH Related Peptide < 2.0
== END 2022-05-06 13:35 | disposition home health service (06) | DRG 689 ==
LOC: ER 11:11 → 2ND 11:42
PROVIDERS: Internal Medicine Adolescent Medicine; Admitting Provider Family Medicine; Emergency Provider Emergency Medicine; PCP Emergency Medicine; Visit Provider Family Medicine
DX: N10 Acute pyelonephritis (principal); G93.41 Metabolic encephalopathy; I26.99 Other pulmonary embolism without acute cor pulmonale; D62 Acute posthemorrhagic anemia; C34.12 Malignant neoplasm of upper lobe, left bronchus or lung; D84.9 Immunodeficiency, unspecified; D68.2 Hereditary deficiency of other clotting factors; R78.81 Bacteremia; N17.9 Acute kidney failure, unspecified; E83.52 Hypercalcemia; B96.1 Klebsiella pneumoniae [K. pneumoniae] as the cause of diseases classified elsewhere; F17.210 Nicotine dependence, cigarettes, uncomplicated; E03.9 Hypothyroidism, unspecified; J44.9 Chronic obstructive pulmonary disease, unspecified; N18.4 Chronic kidney disease, stage 4 (severe); Z85.118 Personal history of other malignant neoplasm of bronchus and lung; N99.520 Hemorrhage of incontinent external stoma of urinary tract; N28.89 Other specified disorders of kidney and ureter
CPT/HCPCS: 36415; 70450; 71046; 74176; 80048; 80053; 80305; 81001; 82272; 82306; 82330; 82397; 82607; 83605; 83735; 83970; 84100; 84145; 85007; 85014; 85018; 85025; 85610; 86140; 86850; 86870; 87040; 87077; 87086; 87088; 87186; 93005; 94640; 97110; 97162; 97166; 97530; 97535; 99285; C9803; G0328; J0630; J0696; J1956; J3489; U0003; U0005

== ENCOUNTER 2022-06-13 03:44 | Inpatient (IN) | payer MEDICARE, MEDICAID, SELFPAY ==
[2022-06-13] VITALS (22 sets, daily range): BP systolic 120–158; BP diastolic 65–94; PULSE 81–91; RESP 16–28; TEMP 36.2–36.8; O2SAT 94–100; BMI 21.4; BMI 20.7; BMI 18.5; BMI 18.3
--- NOTE | 2022-06-13 03:41 | CT_ITS ---
PROCEDURE INFORMATION: Exam: CT Abdomen And Pelvis Without Contrast Exam date and time: 06/13/2022 4:22 AM Age: 67 years old Clinical indication: Abdominal pain; Additional info: Abd pain TECHNIQUE: Imaging protocol: Computed tomography of the abdomen and pelvis without contrast. Radiation optimization: All CT scans at this facility use at least one of these dose optimization techniques: automated exposure control; mA and/or kV adjustment per patient size (includes targeted exams where dose is matched to clinical indication); or iterative reconstruction. REPORTING DATA: Count of CT and Cardiac NM exams in prior 12 months: This patient has received 4 known CTs and 0 known cardiac nuclear medicine studies in the 12 months prior to the current study. COMPARISON: CT ABDOMEN PELVIS WO CON 04/30/2022 6:28 AM FINDINGS: Lungs: Multiple nodules throughout the lungs that measure up to 2.1 cm in size. Liver: Normal. No mass. Gallbladder and bile ducts: There are postsurgical changes from a cholecystectomy. Pancreas: Normal. No ductal dilation. Spleen: Normal. No splenomegaly. Adrenal glands: Normal. No mass. Kidneys and ureters: Left kidney and ureter is normal. Mass within the posterior aspect of the right kidney that measures approximately 5 x 5 cm in size. Fat stranding surrounding the right kidney. No hemorrhage. Stomach and bowel: Unremarkable. No obstruction. No mucosal thickening. Appendix: No evidence of appendicitis. Intraperitoneal space: Unremarkable. No free air. No significant fluid collection. Retroperitoneal space: Extensive retroperitoneal masses that measure up to 3.6 x 2.8 cm in size. These have significantly enlarged compared to the previous exam. Vasculature: Unremarkable. No abdominal aortic aneurysm. Lymph nodes: Multiple large iliac chain lymph nodes. Urinary bladder: The bladder is decompressed. There is a Perales catheter present. Reproductive: Unremarkable as visualized. Bones/joints: Unremarkable. No acute fracture. Soft tissues: Unremarkable. IMPRESSION: 1. Multiple nodules throughout the lungs that measure up to 2.1 cm in size. This is significantly worse than the examination performed 45 days previously. 2. While limited secondary to the lack of contrast, there appears to be significant enlargement of a renal cell mass measuring up to 5 cm in size. There is associated mild inflammation of kidney.. 3. Extensively worsening metastatic disease in the retroperitoneum and iliac chains. COMMENTS: Consistent with the [place] [employer]'s Incidental Findings Committee white paper (J Am Deven Radiol 2018): Any incidental renal lesion less than 1 cm or classified as too small to characterize, or any incidental cystic renal lesion characterized as simple-appearing, is likely benign. No follow-up imaging is recommended for these lesions per consensus recommendations based on imaging criteria.
--- NOTE | 2022-06-13 03:41 | CT_ITS ---
PROCEDURE INFORMATION: Exam: CT Head Without Contrast Exam date and time: 06/13/2022 4:20 AM Age: 67 years old Clinical indication: Stroke-like symptoms; Left facial droop TECHNIQUE: Imaging protocol: Computed tomography of the head without contrast. Radiation optimization: All CT scans at this facility use at least one of these dose optimization techniques: automated exposure control; mA and/or kV adjustment per patient size (includes targeted exams where dose is matched to clinical indication); or iterative reconstruction. Other technique: STROKE PROTOCOL was implemented. REPORTING DATA: Count of CT and Cardiac NM exams in prior 12 months: This patient has received 4 known CTs and 0 known cardiac nuclear medicine studies in the 12 months prior to the current study. COMPARISON: CT HEAD/BRAIN WO CON 05/02/2022 10:59 AM FINDINGS: Brain: Normal. No hemorrhage. Age appropriate white matter. No mass effect. No focal mass. The suarez-white matter junction is intact. Cerebral ventricles: No ventriculomegaly. Paranasal sinuses: Visualized sinuses are unremarkable. No fluid levels. Mastoid air cells: Visualized mastoid air cells are well aerated. Bones/joints: Unremarkable. No acute fracture. Soft tissues: Unremarkable. IMPRESSION: Normal examination of brain. There is no acute intracranial abnormality. There is no structural abnormality. ASSESSMENT: ASPECTS (Mitchell Stroke Program Early CT Score) is 10.
[2022-06-13 03:46] LABS: ABG Base Excess 1.9 mmol/L (-2.4-2.3); ABG HCO3 26.3 mmhg (22.0-26.0); ABG Oxygen Saturation 90 % (90-100); ABG PCO2 41.3 mmhg (35.0-45.0); ABG PH 7.42 mmol/L (7.35-7.45); ABG PO2 58.2 mmhg (80-100); ABG TCO2 27.6 mmhg (23-27)
[2022-06-13 03:47] LABS: Allen's Test Acceptable; Oxygen RA %; Source Right Radial
[2022-06-13 03:55] LABS: Basophils # 0.1 K/mm3 (0-0.2); Basophils % 0.5 % (0.1-2.0); Eosinophils # 2.4 K/mm3 (0.0-0.4); Eosinophils % 12.4 % (0.1-12.0); Hematocrit 30.2 % (37.0-47.0); Hemoglobin 9.5 g/dL (12.2-16.2); Lymphocytes # 1.1 K/mm3 (0.7-4.5); Lymphocytes % 5.5 % (10-50); Mean Corpuscular HGB Conc 31.5 g/dL (31.8-35.4); Mean Corpuscular Hemoglobin 26.5 pg (27.0-31.2); Mean Corpuscular Volume 84.2 fl (81-99); Mean Platelet Volume 7.7 fl (7.4-10.4); Monocytes # 0.5 K/mm3 (0.1-1.0); Monocytes % 2.7 % (1.7-9.3); Neutrophils % 78.9 % (37.0-80.0); Platelet Count 350 K/mm3 (142-424); Red Blood Count 3.58 M/mm3 (4.20-5.40); Red Cell Distribution Width 17.2 % (11.5-17.5)
[2022-06-13 03:57] LABS: Chloride 103 mmol/L (98-107); Potassium 3.7 mmoL/L (3.5-5.1); Sodium 137 mmol/L (136-145)
--- NOTE | 2022-06-13 03:58 | ECG_ITS ---
APPROVED REPORT Exam: Resting ECG HR:88 bpm ECG Measurements Heart Rate 88 AXES NM 128 P 76 QRSd 98 QRS 57 QT 378 T 83 QTc 423 Conclusion SINUS RHYTHM POSSIBLE LEFT ATRIAL ENLARGEMENT [-0.1mV P-WAVE IN V1/V2] SEPTAL MYOCARDIAL INFARCTION , OF INDETERMINATE AGE [40+ ms Q WAVE IN V1/V2] MODERATE T-WAVE ABNORMALITY, CONSIDER ANTERIOR ISCHEMIA [-0.1+ mV T-WAVE IN V3/V4] ABNORMAL ECG UNCONFIRMED REPORT Electronically signed by : Sourav Delacruz MD 06/14/2022 02:53:54
[2022-06-13 04:00] LABS: Alanine Aminotransferase 17 U/L (12-78); Albumin Level 3.8 g/dl (3.5-5.0); Alkaline Phosphatase 193 U/L (38-126); Anion Gap 8.7 mEq/L (5-15); Aspartate Amino Transferase 34 U/L (14-36); Bilirubin,Total 0.4 mg/dl (0.2-1.3); Blood Urea Nitrogen 29 mg/dl (7-17); Carbon Dioxide 29 mmol/L (22.0-30.0); Creatinine Clearance Estimated 20 mL/min (50-200); Estimated Glomerular Filt Rate 23 ml/min (>60); GFR (African American) 28 ML/MIN (>60); Globulin 3.9 g/dL (1.3-3.2); Total Protein,Serum 7.7 g/dl (6.3-8.2)
[2022-06-13 04:01] LABS: Glucose 108 mg/dl (74-100)
[2022-06-13 04:10] LABS: Calcium 16.2 mg/dl (8.4-10.2); MANUAL DIFFERENTIAL MANUAL DIFFERENTIAL (MANUAL DIFF)
--- NOTE | 2022-06-13 04:10 | XR_ITS ---
PROCEDURE INFORMATION: Exam: XR Chest Exam date and time: 06/13/2022 4:42 AM Age: 67 years old Clinical indication: Other: AMS TECHNIQUE: Imaging protocol: Radiologic exam of the chest. Views: 1 view. COMPARISON: CR XR CHEST 2V 04/30/2022 7:50 AM FINDINGS: Lungs: No focal consolidation. Pleural spaces: Unremarkable. No pleural effusion. No pneumothorax. Heart/Mediastinum: Unremarkable. No cardiomegaly. Bones/joints: Unremarkable. There is no acute fracture present. IMPRESSION: No evidence for pneumonia.
[2022-06-13 04:18] LABS: Troponin I < 0.01 ng/ml (0.00-0.034)
--- NOTE | 2022-06-13 04:57 | HMH.EDAMS ---
Discharge Plan Disposition Patient Disposition: Admitted As Inpatient Clinical Impressions Clinical Impression: Hypercalcemia, Mass of right kidney, Retroperitoneal lymphadenopathy, Acute delirium Discharge ED Provider: Evelyn (ED)Avila Altered Mental Status HPI General Chief Complaint: Altered Mental Status Stated Complaint: facial droop Time Seen by Provider: 06/13/22 04:00 Mode of Arrival: EMS Source of Information: Patient, EMS and Medical Record Limitations: No Limitations Description of Symptoms (Recalled from ER Triage Doc. by RN): 67 yo female presents via EMS for complaint of medical alarm activation and weakness that she indicated has been ongoing since sometime yesterday. Patient states she feels weird . Noticeable left side facial droop, garbled/slurred speech and slow to respond to commands. Accurately states her name and date although slightly difficult to understand, and that she was at [facility] . FSBS per EMS reported to be 112 mg/dl. Well known PMH of urinary/nephrology issues. Patient also has had clotting issues in the past that she doesn't know what its called . History of Present Illness HPI narrative: pt with weakness which has been ongoing over the last couple of days - pt does not feel normal - but denied ballesteros or fever and no chest pain but reports abd pain - MD complaint: altered mental status Onset (ago): day(s) Severity: moderate Consistency of symptoms: waxing and waning Context: cancer Associated symptoms: denies other symptoms Related Data Home Medications Medication Instructions Recorded Confirmed albuterol sulfate 1.25 mg/3 mL 1.25 mg inhalation QIDP PRN 04/30/22 05/13/22 solution for nebulization breathing problems amlodipine 5 mg tablet 5 mg PO BID High blood pressure 04/30/22 05/13/22 dextromethorphan-guaifenesin 30 1 tab PO Q12H congestion 04/30/22 05/13/22 mg-600 mg tablet extended [id number] hr (Mucinex DM) fluticasone furoate 200 1 inh inhalation BID Breathing 04/30/22 05/13/22 mcg-vilanterol 25 mcg/dose problems inhalation powder (Breo Ellipta) levothyroxine 112 mcg tablet 112 mcg PO DAILY thyroid 04/30/22 05/13/22 lidocaine 5 % topical patch 1 patch transdermal DAILY Pain 04/30/22 05/13/22 nicotine 21 mg/24 hr daily 1 patch transdermal DAILY smoking 04/30/22 05/13/22 transdermal patch cessation oxybutynin chloride 5 mg tablet 5 mg PO BID bladder issues 04/30/22 05/13/22 pravastatin 40 mg tablet 90 mg PO DAILY Cholesterol 04/30/22 05/13/22 venlafaxine 75 mg capsule,extended 75 mg PO DAILY mood 04/30/22 05/13/22 release 24 hr (Effexor XR) apixaban 5 mg tablet (Eliquis) 5 mg PO BID . 06/13/22 clonazepam 0.5 mg tablet 0.5 mg PO TID . 06/13/22 levofloxacin 750 mg tablet 750 mg PO DAILY . 06/13/22 metoprolol tartrate 25 mg tablet 25 mg PO BID High blood pressure 06/13/22 Previous Rx's Medication Instructions Recorded trazodone 50 mg tablet 50 mg PO HS PRN sleep #30 tabs 05/07/22 vilazodone 40 mg tablet 40 mg PO DAILY Depression #30 tabs 06/07/22 Allergies Allergy/AdvReac Type Severity Reaction Status Date / Time No Known Allergies Allergy Verified 05/13/22 16:01 [facility] Disclaimer: The information contained in this section may have been updated after the patient was seen, as this information can be updated by other users. 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
[2022-06-13 05:02] LABS: Microscopic, Urine URINE MICROSCOPIC (MICROSCOPIC)
[2022-06-13 05:04] LABS: Bilirubin,Urine Negative (Negative); Blood, Urine 3+ (Negative); Color,Urine DK YELLOW (Yellow); Glucose,Urine (UA) Negative (Negative); Ketones,Urine Negative (Negative); Leukocyte Esterase,Urine Negative (Negative); Nitrate,Urine Negative (Negative); Protein,Urine 3+ (Negative); Specific Gravity, Urine >= 1.030 (1.005-1.030); Urobilinogen,Urine 0.2 EU/dl (0.2)
[2022-06-13 05:06] LABS: Appearance,Urine Slightly Cloudy (Clear)
[2022-06-13 05:29] LABS: WBC,Urine Occasional #/hpf (0-3)
[2022-06-13 05:30] LABS: Amorphous Sediment,Urine 1+ /lpf; Bacteria,Urine 1+ /lpf; Mucus,Urine Trace /lpf
[2022-06-13 05:34] LABS: Lactic Acid 1.8 mmol/L (0.7-2.1)
[2022-06-13 05:49] LABS: Calcium 16.1 mg/dl (8.4-10.2)
--- NOTE | 2022-06-13 05:49 | PC.NURSE ---
notified carlo of critical calcium 16.1
--- NOTE | 2022-06-13 06:30 | EXP.HP ---
History of Present Illness *Admission Date: 06/13/22 *Reason for visit:: Confusion *History of present illness: Ms. Florentino is a 67-year-old female with a past medical history of CKD Stage IV, History of Squamous Cell Lung Cancer s/p Lobectomy in 07/2021 and follow-up with Radiation and Chemotherapy, history of PE on chronic anticoagulation, Chronic Tobacco Abuse and COPD. She presents to [facility] due to acute onset of confusion. She was seen in the ER, but is unable to answer any subjective questioning, per records reviewed a medical alarm went off and EMS was called out to her home. Initial concern for was stroke she was noted to have left sided facial droop, garbled speech and was slow to respond. In the ER, work-up consisted of a CT of the head without contrast which showed no acute intracranial abnormality, CBC showed a leukocytosis with WBC 19K, a microcytic anemia with hgb 9.5, Creatinine was elevated close to patient's most recent baseline at 2.10. Calcium was elevated at 16.2, albumin is 3.8. Calcium corrected for albumin is 16.4. The patient underwent a CT of the abdomen and pelvis that showed multiple nodules throughout the lung and enlargment of a renal cell mass up to 5 cm in size concerning for worsening metastatic disease. In the ER the patient was placed on isotonic saline and given lasix. Due to the severity of the patient's calcium level along with her symptoms she will be continued on isotonic saline and given subcutenous calcitonin. A repeat BMP will be obtained in 4 hours. The patient will be monitored on the step-down unit. [facility] Disclaimer: The information contained in this section may have been updated after the patient was seen, as this information can be updated by other users. 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 Pulmonary embolus Tobacco dependence Surgical History History of hysterectomy S/P appendectomy S/P cholecystectomy S/P lobectomy of lung S/P thyroidectomy Social History (Updated 06/13/22 @ 11:25 by Zhane Contreras RN) Smoking Status: Former smoker second hand exposure: No alcohol intake: never substance use type: denies use current occupational status: other Travel in the last 8 weeks: None household members: none housing: apartment number of children: 4 current occupational exposures/hazards: No caffeine: Yes Review of Systems Review of Systems Review of systems:: pertinent systems reviewed and negative unless documented below Meds Home Medications and Allergies Home Medications Medication Instructions Recorded Confirmed Type albuterol sulfate 1.25 mg/3 mL 1.25 mg inhalation QIDP PRN 04/30/22 06/13/22 History solution for nebulization breathing problems amlodipine 5 mg tablet 5 mg PO BID High blood pressure 04/30/22 06/13/22 History fluticasone furoate 200 1 inh inhalation BID Breathing 04/30/22 06/13/22 History mcg-vilanterol 25 mcg/dose problems inhalation powder (Breo Ellipta) levothyroxine 112 mcg tablet 112 mcg PO DAILY thyroid 04/30/22 06/13/22 History lidocaine 5 % topical patch 1 patch transdermal DAILY Pain 04/30/22 06/13/22 History oxybutynin chloride 5 mg tablet 5 mg PO BID bladder issues 04/30/22 06/13/22 History pravastatin 40 mg tablet 40 mg PO HS Cholesterol 04/30/22 06/13/22 History venlafaxine 75 mg capsule,extended 75 mg PO DAILY mood 04/30/22 06/13/22 History release 24 hr (Effexor XR) vilazodone 40 mg tablet 40 mg PO DAILY Depression #30 tabs 06/07/22 06/13/22 Rx apixaban 5 mg tablet (E
[2022-06-13 07:05] LABS: Troponin I < 0.01 ng/ml (0.00-0.034)
--- NOTE | 2022-06-13 07:18 | PC.NURSE ---
covid swab sent to lab
[2022-06-13 07:20] LABS: Eosinophils % 7 % (0-3); Lymphocytes % 4 % (10-50); Monocytes % 1 % (2-9); Neutrophils % 88 % (42-76); Total Cells Counted 100
[2022-06-13 07:21] LABS: Intact Parathyroid Hormone 8.9 pg/mL (7.5-53.5)
[2022-06-13 07:23] LABS: Hypochromasia 2+; Platelet Estimate Normal
[2022-06-13 07:30] LABS: Coronavirus 19, PCR Not Detected (NotDetected); Influenza A, PCR Not Detected (NotDetected); Influenza B, PCR Not Detected (NotDetected)
--- NOTE | 2022-06-13 07:34 | PC.NURSE ---
rounded on pt at this time. pt answering questions appropriately, no needs at this time.
--- NOTE | 2022-06-13 07:58 | PC.NURSE ---
notified ryder on second floor pt covid swab is negative
--- NOTE | 2022-06-13 08:03 | PC.NURSE ---
per juan alberto soler states pt is going to go to room 218, states room has to be cleaned, pt being admitted as stepdown pt.
--- NOTE | 2022-06-13 09:00 | PC.NURSE ---
called second floor to check on bed status, spoke with juan alberto soler states room is being cleaned at this time.
--- NOTE | 2022-06-13 09:56 | PC.NURSE ---
Patient arrived to the floor at this time
[2022-06-13 10:30] LABS: MANUAL DIFFERENTIAL MANUAL DIFFERENTIAL (MANUAL DIFF)
[2022-06-13 10:33] LABS: Basophils # 0.1 K/mm3 (0-0.2); Basophils % 0.4 % (0.1-2.0); Eosinophils # 1.4 K/mm3 (0.0-0.4); Hematocrit 26.2 % (37.0-47.0); Lymphocytes # 0.9 K/mm3 (0.7-4.5); Lymphocytes % 5.1 % (10-50); Mean Corpuscular HGB Conc 31.7 g/dL (31.8-35.4); Mean Corpuscular Hemoglobin 26.4 pg (27.0-31.2); Mean Corpuscular Volume 83.5 fl (81-99); Mean Platelet Volume 7.6 fl (7.4-10.4); Monocytes # 0.6 K/mm3 (0.1-1.0); Monocytes % 3.2 % (1.7-9.3); Neutrophils # 14.7 K/mm3 (1.8-7.8); Neutrophils % 83.2 % (37.0-80.0); Platelet Count 328 K/mm3 (142-424); Red Blood Count 3.14 M/mm3 (4.20-5.40); Red Cell Distribution Width 17.4 % (11.5-17.5); White Blood Count 17.6 K/mm3 (4.8-10.8)
[2022-06-13 10:34] LABS: Hemoglobin 8.3 g/dL (12.2-16.2)
[2022-06-13 10:42] LABS: Alanine Aminotransferase 14 U/L (12-78); Albumin Level 3.3 g/dl (3.5-5.0); Albumin/Globulin Ratio 0.9 (1.1-1.8); Alkaline Phosphatase 164 U/L (38-126); Anion Gap 8.3 mEq/L (5-15); Aspartate Amino Transferase 31 U/L (14-36); Bilirubin,Total 0.3 mg/dl (0.2-1.3); Blood Urea Nitrogen 28 mg/dl (7-17); Carbon Dioxide 25 mmol/L (22.0-30.0); Chloride 107 mmol/L (98-107); Creatinine Clearance Estimated 22 mL/min (50-200); Estimated Glomerular Filt Rate 26 ml/min (>60); GFR (African American) 32 ML/MIN (>60); Globulin 3.5 g/dL (1.3-3.2); Glucose 91 mg/dl (74-100); Potassium 3.3 mmoL/L (3.5-5.1); Sodium 137 mmol/L (136-145); Total Protein,Serum 6.8 g/dl (6.3-8.2)
[2022-06-13 10:54] LABS: Calcium 14.5 mg/dl (8.4-10.2)
[2022-06-13 11:02] LABS: Troponin I < 0.01 ng/ml (0.00-0.034)
--- NOTE | 2022-06-13 11:09 | HMH.PHAINT1 ---
Pharmacy Intervention Comments: Reconciled patient's home medications via pharmacy fill history and patient interview.
[2022-06-13 12:23] LABS: Eosinophils % 7 % (0-3); Lymphocytes % 11 % (10-50); Monocytes % 3 % (2-9); Neutrophils % 79 % (42-76); Platelet Estimate Normal; RBC Morphology Normal; Total Cells Counted 100
--- NOTE | 2022-06-13 17:40 | PC.NURSE ---
Pt is a new admit this shift for hypercalcemia. She has been lethargic since arriving to the floor but awakens easily to voice. No nausea or vomiting reported. She is alert to self. Her ba is to bedside draining clear, yellow urine, 1400 mls out. She's been NSR on telemetry. She is currently resting in bed with her eyes closed. Bed is locked and in the lowest position, call light is within reach. Bed alarm activated.
[2022-06-14] VITALS (8 sets, daily range): BP systolic 102–130; BP diastolic 63–74; PULSE 77–90; RESP 14–23; TEMP 36.4–36.9; O2SAT 94–100; BMI 18.3
[2022-06-14 10:05] LABS: Anion Gap 11.7 mEq/L (5-15); Blood Urea Nitrogen 30 mg/dl (7-17); Carbon Dioxide 19 mmol/L (22.0-30.0); Chloride 115 mmol/L (98-107); Creatinine Clearance Estimated 26 mL/min (50-200); Estimated Glomerular Filt Rate 32 ml/min (>60); GFR (African American) 39 ML/MIN (>60); Glucose 68 mg/dl (74-100); Potassium 3.7 mmoL/L (3.5-5.1); Sodium 142 mmol/L (136-145)
[2022-06-14 12:12] LABS: Calcium, Ionized 8.4 mg/dL (4.5-5.6)
--- NOTE | 2022-06-14 13:12 | PC.NURSE ---
hematuria noted in ba bag. notified
--- NOTE | 2022-06-14 14:56 | EXP.ACUTE.PN ---
Subjective *Date: 06/14/22 *Time: 14:56 Interval history: Doing better more alert. no more history. hematuria in ba Medical Exam Vital signs and Labs for Last 24 Hours: Vital Signs Temp Pulse Pulse Resp BP Pulse Ox 06/14/22 11:47 97.8 F 82 23 116/66 100 06/14/22 08:00 99 06/14/22 08:00 98.5 F 06/14/22 06:00 88 21 129/73 100 06/14/22 04:00 98.3 F 87 18 124/66 100 06/14/22 04:00 86 06/14/22 00:00 86 06/14/22 02:00 88 14 125/72 95 06/14/22 00:00 98.5 F 90 23 130/74 100 06/13/22 20:00 100 06/13/22 22:00 87 24 124/82 100 06/13/22 20:00 98.3 F 91 H 28 H 129/65 100 06/13/22 20:00 91 H 06/13/22 18:00 87 20 120/70 100 06/13/22 16:00 84 06/13/22 16:00 86 129/94 H 100 06/13/22 15:35 98.3 F Intake and Output 06/13/22 06/14/22 06/14/22 23:59 07:59 15:59 Intake Total 851 / 851 1712 / 2072 360 / 2072 Output Total 400 / 1700 600 / 600 Balance 451 / -849 1112 / 1472 360 / 1472 Intake: Intake, Oral Amount 360 / 360 Intake, Total IV Amount 851 / 851 1712 / 1712 0.9 % Sodium Chloride 1000ML 1, 851 / 851 1712 / 1712 000 ml @ 150 mls/hr IV .[id number] [facility] Rx#:[id number] Output: Output, Urine Amount 400 / 1700 Output, Urine Amount (Catheter) 600 / 600 Ba 600 / 600 Other: Number of Unmeasured Voids 1 Weight 50 kg Patient Weight 06/14/22 23:59 Weight 50 kg Laboratory Results - last 24 hr 06/13/22 06:32: Ionized Calcium 8.4 H 06/14/22 08:57: Sodium 142, Potassium 3.7, Chloride 115 H, Carbon Dioxide 19 L, Anion Gap 11.7, BUN 30 H, Creatinine 1.60 H, Estimated Creat Clear 26, Estimated GFR 32 L, Est GFR ( Amer) 39 L D, Glucose 68 L D, Calcium 12.0 H D I & O for Labs for Last 24 Hours: Intake & Output 06/11/22 06/12/22 06/13/22 06/14/22 23:59 23:59 23:59 23:59 Intake Total 851 / 851 2071 Output Total 1700 / 1700 600 / 600 Balance -849 / -849 1472 / 1472 Weight 50 kg 50 kg Constitutional: Present no acute distress, average body habitus, chronically ill appearing and cooperative Comment:: more awake, less confused but still speaking slowly hematuria in ba Head: Present atraumatic and normocephalic ENT: Present normal exam Neck: Present normal inspection Respiratory: Present normal respiratory effort; Absent accessory muscle use, rhonchi, wheezes or crackles Cardiac: Present Reg Rate and Rhythm GI: Present soft, tenderness (diffuse, non-focal) and normal bowel sounds Comment:: hematuria Extremities: Present normal inspection and full ROM Skin: Present intact; Absent erythema Neuro: Present Grossly Intact, alert, awake and moves all extremities Additional Findings:: Right nephrostomy tube intact with no surrounding erythema or leak. Draining light yellow urine. No bloody discharge Assessment and Plan *Assessment and plan (1) Acute encephalopathy: Status: Acute Category: Medical Code(s): G93.40 - Encephalopathy, unspecified (2) Hypercalcemia: Status: Acute Category: Medical Code(s): E83.52 - Hypercalcemia (3) Lung nodules: Status: Acute Category: Medical Code(s): R91.8 - Other nonspecific abnormal finding of lung field (4) Renal mass: Status: Acute Category: Medical Code(s): N28.89 - Other specified disorders of kidney and ureter (5) Pulmonary embolism: Status: Acute Category: Medical Code(s): I26.99 - Other pulmonary embolism without acute cor pulmonale (6) CKD (chronic kidney disease), stage IV: Status: Acute Category: Medical Code(s): N18.4 - Chronic kidney disease, stage 4 (severe) (7) Hypothyroidism: Status: Acute Category: Medical Code(s): E03.9 - Hypothyroidism, unspecified Plan 67-year-old female with past medical history of squamous cell lung cancer s/p lob
--- NOTE | 2022-06-14 17:37 | PC.NURSE ---
HEMATURIA NOTED IN PRESTON THIS AFTERNOON. MADE AWARE AND ASKED THIS RN TO IRRIGATE PRESTON. MULTIPLE BLOOD CLOTS IRRIGATED FROM PRESTON TUBING USING STERILE TECHNIQUE PT TOLERATED WELL. PT HAS BEEN VERY ILL APPEARING TODAY. SHE HAS LAID IN BED ALL SHIFT. SHE HAS BEEN VERY SOFT SPOKEN.
[2022-06-15] VITALS (9 sets, daily range): BP systolic 100–127; BP diastolic 50–69; PULSE 80–109; RESP 16–19; TEMP 36.6–37.9; O2SAT 85–100; BMI 18.7
--- NOTE | 2022-06-15 04:55 | PC.NURSE ---
NO ACUTE CHANGES THIS SHIFT. PT HAS BEEN LETHARGIC THIS SHIFT BUT AROUSES TO HER NAME AND IS ABLE TO FOLLOW COMMANDS. ONLY ALERT TO SELF. VSS. BED ALARM IN PLACE.
[2022-06-15 07:35] LABS: Basophils % 0.2 % (0.1-2.0); Eosinophils # 1.3 K/mm3 (0.0-0.4); Eosinophils % 6.6 % (0.1-12.0); Hematocrit 25.6 % (37.0-47.0); Hemoglobin 8.4 g/dL (12.2-16.2); Lymphocytes # 1.1 K/mm3 (0.7-4.5); Lymphocytes % 5.5 % (10-50); Mean Corpuscular HGB Conc 32.9 g/dL (31.8-35.4); Mean Corpuscular Hemoglobin 27.7 pg (27.0-31.2); Mean Corpuscular Volume 84.3 fl (81-99); Mean Platelet Volume 7.6 fl (7.4-10.4); Monocytes # 0.7 K/mm3 (0.1-1.0); Monocytes % 3.3 % (1.7-9.3); Neutrophils # 17.3 K/mm3 (1.8-7.8); Neutrophils % 84.4 % (37.0-80.0); Platelet Count 262 K/mm3 (142-424); Red Blood Count 3.03 M/mm3 (4.20-5.40); Red Cell Distribution Width 17.8 % (11.5-17.5); White Blood Count 20.4 K/mm3 (4.8-10.8)
[2022-06-15 07:39] LABS: MANUAL DIFFERENTIAL MANUAL DIFFERENTIAL (MANUAL DIFF)
--- NOTE | 2022-06-15 07:41 | XR_ITS ---
PROCEDURE INFORMATION: Exam: XR Chest Exam date and time: 06/15/2022 7:41 AM Age: 67 years old Clinical indication: Shortness of breath; Additional info: Dyspnea TECHNIQUE: Imaging protocol: Radiologic exam of the chest. Views: 1 view. COMPARISON: CR XR CHEST PORTABLE 06/13/2022 4:42 AM FINDINGS: Lungs: Chronic interstitial changes are present. Pleural spaces: Unremarkable. No pleural effusion. No pneumothorax. Heart/Mediastinum: Unremarkable. No cardiomegaly. Bones/joints: Unremarkable. IMPRESSION: No acute process noted.
--- NOTE | 2022-06-15 07:53 | PC.NURSE ---
LATE ENTRY. THIS RN MADE AWARE PT O2 SAT DURING MORNING VS ROUND WAS 86% ON ROOM AIR. PT ASSESSED PER THIS RN. 2LNC APPLIED FOR SUPPLEMENTAL O2 SUPPORT, HOB RAISED TO IMPROVE OXYGENATION. O2 SAT IMPROVED TO 94% ON 2LNC. DR GILBERT MADE AWARE OF PT STATUS. PT DENIED ANY COMPLAINTS AT THIS TIME.
[2022-06-15 08:25] LABS: Chloride 120 mmol/L (98-107); Sodium 146 mmol/L (136-145)
[2022-06-15 08:28] LABS: Alanine Aminotransferase 16 U/L (12-78); Albumin/Globulin Ratio 0.9 (1.1-1.8); Alkaline Phosphatase 161 U/L (38-126); Anion Gap 10.8 mEq/L (5-15); Aspartate Amino Transferase 55 U/L (14-36); Bilirubin,Total 0.3 mg/dl (0.2-1.3); Blood Urea Nitrogen 28 mg/dl (7-17); Carbon Dioxide 18 mmol/L (22.0-30.0); Creatinine Clearance Estimated 25 mL/min (50-200); Estimated Glomerular Filt Rate 30 ml/min (>60); GFR (African American) 36 ML/MIN (>60); Globulin 3.5 g/dL (1.3-3.2); Glucose 56 mg/dl (74-100); Magnesium 2.5 mg/dl (1.6-2.3); Phosphorous 2.5 mg/dl (2.5-4.5); Total Protein,Serum 6.5 g/dl (6.3-8.2)
[2022-06-15 08:36] LABS: Calcium 12.2 mg/dl (8.4-10.2); Potassium 2.8 mmoL/L (3.5-5.1)
[2022-06-15 08:51] LABS: Anisocytosis 1+; Hypochromasia 1+; Lymphocytes % 7 % (10-50); Monocytes % 5 % (2-9); Neutrophils % 88 % (42-76); Platelet Estimate Normal; Total Cells Counted 100
--- NOTE | 2022-06-15 10:09 | PC.NURSE ---
courtesy tech note; rounded on pt, pt denied the need to use the restroom and denied the need for a drink. call light within reach. No further requests at this time. Barbara Alanis, SRNA
--- NOTE | 2022-06-15 14:45 | EXP.ACUTE.PN ---
Subjective *Date: 06/15/22 *Time: 16:27 Interval history: Patient weak this morning on exam. Placed on 2 L nasal cannula this morning due to some mild respiratory distress. Obtain chest x-ray with no acute process. Poor p.o. intake. Urine in Ba blood-tinged. Developed fever this morning. Denies cough, nausea, vomiting Medical Exam Vital signs and Labs for Last 24 Hours: Vital Signs Temp Pulse Pulse Resp BP Pulse Ox 06/15/22 12:00 108 H 06/15/22 08:00 94 L 06/15/22 08:00 94 H 06/15/22 11:25 99.3 F 89 19 127/69 92 L 06/15/22 07:52 94 L 06/15/22 07:50 98.7 F 95 H 17 109/54 L 85 L 06/15/22 04:00 90 06/15/22 04:00 97.9 F 81 17 112/50 L 100 06/15/22 00:00 80 06/15/22 00:00 98.1 F 80 16 106/69 L 98 06/14/22 20:00 80 06/14/22 20:00 98 06/14/22 20:00 98.1 F 82 16 102/63 L 98 06/14/22 16:00 97.6 F 77 18 108/69 L 94 L Intake and Output 06/14/22 06/15/22 06/15/22 23:59 07:59 15:59 Intake Total 480 / 2552 Output Total 1950 / 2550 0 Balance -1470 / 2 - / -1 0 / -1 Intake: Intake, Oral Amount 480 / 840 Output: Output, Urine Amount 1950 / 1950 0 / 1 Other: Number of Unmeasured Voids 1 200 0 Weight 50.938 kg Patient Weight 06/15/22 23:59 Weight 50.938 kg Laboratory Results - last 24 hr 06/13/22 06:32: Ionized Calcium 8.4 H 06/15/22 07:20: WBC 20.4 H*, RBC 3.03 L, Hgb 8.4 L, Hct 25.6 L, MCV 84.3, MCH 27.7, MCHC 32.9, RDW 17.8 H, Plt Count 262, MPV 7.6, Neut % (Auto) 84.4 H, Lymph % (Auto) 5.5 L, [place] % (Auto) 3.3, Eos % (Auto) 6.6, Baso % (Auto) 0.2, Neut # (Auto) 17.3 H, Lymph # (Auto) 1.1, [place] # (Auto) 0.7, Eos # (Auto) 1.3 H, Baso # (Auto) 0.0, Total Counted 100, Neutrophils % (Manual) 88 H, Lymphocytes % (Manual) 7 L, Monocytes % (Manual) 5, Platelet Estimate Normal, Hypochromasia 1+, Anisocytosis 1+ 06/15/22 07:20: Sodium 146 H, Potassium 2.8 L* D, Chloride 120 H, Carbon Dioxide 18 L, Anion Gap 10.8, BUN 28 H, Creatinine 1.70 H, Estimated Creat Clear 25, Estimated GFR 30 L, Est GFR ( Amer) 36 L, Glucose 56 L, Calcium 12.2 H*, Phosphorus 2.5, Magnesium 2.5 H, Total Bilirubin 0.3, AST 55 H D, ALT 16, Alkaline Phosphatase 161 H, Total Protein 6.5, Albumin 3.0 L, Globulin 3.5 H, Albumin/Globulin Ratio 0.9 L I & O for Labs for Last 24 Hours: Intake & Output 06/12/22 06/13/22 06/14/22 06/15/22 23:59 23:59 23:59 23:59 Intake Total 851 / 851 2552 / 2552 Output Total 1700 / 1700 2550 / 2550 Balance -849 / -849 2 / - Weight 50 kg 50 kg 50.938 kg Microbiology Reports for the Last 24 Hours: Microbiology 06/13/22 05:10 Blood Blood Culture - Preliminary NO GROWTH AFTER 48 HOURS 06/13/22 05:10 Blood Blood Culture - Preliminary NO GROWTH AFTER 48 HOURS Constitutional: Present no acute distress, thin, chronically ill appearing and cooperative Comment:: more awake, less confused but still speaking slowly/weakly; hematuria in ba Head: Present atraumatic and normocephalic ENT: Present normal exam Comment:: poor dentition Neck: Present normal inspection Respiratory: Present normal respiratory effort; Absent accessory muscle use, rhonchi, wheezes or crackles Cardiac: Present Reg Rate and Rhythm GI: Present soft, tenderness (diffuse, non-focal) and normal bowel sounds Comment:: hematuria Extremities: Present normal inspection and full ROM Skin: Present intact; Absent erythema Neuro: Present Grossly Intact, alert, awake and moves all extremities Additional Findings:: Right nephrostomy tube intact with no surrounding erythema or leak. Draining light yellow urine. No bloody discharge Assessment and Plan *Assessment and plan (1) Acute encephalopathy: Status: Acute Category: Medical Code(s): G93.40 - Encephalopathy, unspecified (2) Hypercalcemia: Status: Acute
[2022-06-15 19:09] LABS: Chloride 121 mmol/L (98-107)
[2022-06-15 19:10] LABS: Potassium 4.1 mmoL/L (3.5-5.1); Sodium 147 mmol/L (136-145)
[2022-06-15 19:13] LABS: Alanine Aminotransferase 16 U/L (12-78); Albumin Level 2.9 g/dl (3.5-5.0); Albumin/Globulin Ratio 0.9 (1.1-1.8); Alkaline Phosphatase 148 U/L (38-126); Anion Gap 12.1 mEq/L (5-15); Aspartate Amino Transferase 69 U/L (14-36); Bilirubin,Total 0.3 mg/dl (0.2-1.3); Blood Urea Nitrogen 29 mg/dl (7-17); Carbon Dioxide 18 mmol/L (22.0-30.0); Creatinine Clearance Estimated 24 mL/min (50-200); Estimated Glomerular Filt Rate 28 ml/min (>60); GFR (African American) 34 ML/MIN (>60); Globulin 3.3 g/dL (1.3-3.2); Glucose 54 mg/dl (74-100); Total Protein,Serum 6.2 g/dl (6.3-8.2)
[2022-06-15 19:35] LABS: Calcium 12.2 mg/dl (8.4-10.2)
--- NOTE | 2022-06-15 19:38 | PC.NURSE ---
AT 1930 LAB CALLED CRITICAL CALCIUM OF 12.2. NADIA HARVEY NOTIFIED.
--- NOTE | 2022-06-15 21:13 | DIET.NUTRFU ---
Pt with poor PO intake. Homemade protein shake added to diet TID. Plan for swallow eval on Friday. Will continue to monitor.
--- NOTE | 2022-06-15 23:09 | PC.NURSE ---
AT 2215 STERILE I/O CATH PERFORMED FOR URINE SPECIMEN COLLECTION. URINE PINK-RED.
[2022-06-16] VITALS (21 sets, daily range): BP systolic 118–142; BP diastolic 34–83; PULSE 85–108; RESP 16–20; TEMP 36.6–37.1; O2SAT 95–100; BMI 17.9
--- NOTE | 2022-06-16 03:26 | PC.NURSE ---
EKG CHANGES NOTED ON TELE. NADIA HARVEY NOTIFIED. 12 LEAD PERFORMED. IVFs DECREASED TO 100 ML/HR.
--- NOTE | 2022-06-16 03:30 | ECG_ITS ---
APPROVED REPORT Exam: Resting ECG HR:84 bpm ECG Measurements Heart Rate 84 AXES MI 124 P 79 QRSd 94 QRS 52 QT 311 T 66 QTc 352 Conclusion SINUS RHYTHM NONSPECIFIC ST & T-WAVE ABNORMALITY BORDERLINE ECG UNCONFIRMED REPORT Electronically signed by : Sourav Delacruz MD 06/16/2022 15:43:21
--- NOTE | 2022-06-16 03:39 | PC.NURSE ---
AT 0319 METOPROLOL 5 MG IVP GIVEN OVER 4 MINS. FOR TACHYCARDIA.
--- NOTE | 2022-06-16 04:51 | PC.NURSE ---
REMAINS IN SINUS RHYTHM AT THIS TIME. EPISODE OF ATRIAL FLUTTER EARLIER AT 0300, RESPONDED TO IVP METOPROLOL. PATIENT DENIES PAIN/SOA/DISCOMFORT. NADIA HARVEY AWARE. IVF INUSING AT 100 ML/HR. INCONTINENT OF URINE PER BRIEFS.
[2022-06-16 07:44] LABS: Basophils % 0.2 % (0.1-2.0); Eosinophils # 0.6 K/mm3 (0.0-0.4); Eosinophils % 3.4 % (0.1-12.0); Hematocrit 22.6 % (37.0-47.0); Lymphocytes % 5.1 % (10-50); Mean Corpuscular HGB Conc 30.9 g/dL (31.8-35.4); Mean Corpuscular Hemoglobin 26.4 pg (27.0-31.2); Mean Corpuscular Volume 85.4 fl (81-99); Mean Platelet Volume 8.3 fl (7.4-10.4); Monocytes # 0.5 K/mm3 (0.1-1.0); Monocytes % 2.9 % (1.7-9.3); Neutrophils # 16.2 K/mm3 (1.8-7.8); Neutrophils % 88.3 % (37.0-80.0); Platelet Count 241 K/mm3 (142-424); Red Blood Count 2.64 M/mm3 (4.20-5.40); Red Cell Distribution Width 17.9 % (11.5-17.5); White Blood Count 18.4 K/mm3 (4.8-10.8)
[2022-06-16 07:48] LABS: Chloride 124 mmol/L (98-107); Potassium 3.4 mmoL/L (3.5-5.1); Sodium 148 mmol/L (136-145)
[2022-06-16 07:51] LABS: Alanine Aminotransferase 15 U/L (12-78); Albumin/Globulin Ratio 0.9 (1.1-1.8); Alkaline Phosphatase 159 U/L (38-126); Anion Gap 8.4 mEq/L (5-15); Aspartate Amino Transferase 75 U/L (14-36); Bilirubin,Total 0.3 mg/dl (0.2-1.3); Blood Urea Nitrogen 30 mg/dl (7-17); Carbon Dioxide 19 mmol/L (22.0-30.0); Creatinine Clearance Estimated 22 mL/min (50-200); Estimated Glomerular Filt Rate 26 ml/min (>60); GFR (African American) 32 ML/MIN (>60); Globulin 3.4 g/dL (1.3-3.2); Glucose 75 mg/dl (74-100); Phosphorous 3.1 mg/dl (2.5-4.5); Total Protein,Serum 6.4 g/dl (6.3-8.2)
[2022-06-16 07:53] LABS: MANUAL DIFFERENTIAL MANUAL DIFFERENTIAL (MANUAL DIFF)
[2022-06-16 07:55] LABS: Calcium 12.1 mg/dl (8.4-10.2)
[2022-06-16 09:17] LABS: Eosinophils % 1 % (0-3); Lymphocytes % 4 % (10-50); Monocytes % 1 % (2-9); Neutrophils % 94 % (42-76); Platelet Estimate Normal; RBC Morphology Normal; Total Cells Counted 100
[2022-06-16 10:14] LABS: Calcium, Urine 56.6 mg/dL (Not Estab.)
--- NOTE | 2022-06-16 10:23 | PC.NURSE ---
PT MORE ALERT THIS MORNING. SHE WAS ABLE TO FOLLOW BASIC COMMANDS. THIS RN SPOKE WITH DR GILBERT REGARDING ATTEMPTING A 2ND BEDSIDE SWALLOW EVAL FOLLOWING PTS FAILED EVAL YESTERDAY. PT STILL EXHIBITS DIFFICULTY WITH SWALLOWING SO MORNING PO MEDICATIONS ARE BEING HELD AT THIS TIME. DR GILBERT MADE AWARE OF RESULTS.
--- NOTE | 2022-06-16 10:46 | EXP.ACUTE.PN ---
Subjective *Date: 06/16/22 *Time: 12:04 Interval history: Patient will more alert and interactive this morning. Voice slightly stronger. Answers questions appropriately. Denies nausea or vomiting. Stable on 2 L nasal cannula oxygen. Afebrile overnight. Medical Exam Vital signs and Labs for Last 24 Hours: Vital Signs Temp Pulse Pulse Resp BP Pulse Ox 06/16/22 08:00 100 H 06/16/22 08:00 108 H 06/16/22 07:21 98.4 F 102 H 18 133/74 98 06/16/22 04:00 97.9 F 97 H 20 126/67 99 06/16/22 04:00 93 H 06/16/22 00:00 105 H 06/16/22 00:00 97.8 F 98 H 20 127/64 95 06/15/22 20:00 97 06/15/22 20:00 92 H 06/15/22 20:00 97.9 F 93 H 18 100/59 L 97 06/15/22 16:00 90 06/15/22 16:00 100.2 F H 109 H 17 119/66 92 L 06/15/22 12:00 108 H 06/15/22 11:25 99.3 F 89 19 127/69 92 L Intake and Output 06/15/22 06/16/22 06/16/22 23:59 07:59 15:59 Intake Total 1166 / 1941 1450 / 1450 Output Total 0 / 2200 0 Balance -1034 / -260 1449 / 1449 0 / 1449 Intake: Intake, Oral Amount 120 / 120 Intake, Total IV Amount 1330 / 1330 0.9 % Sodium Chloride 1000ML 1, 555 / 555 000 ml @ 100 mls/hr IV .Q10H [facility] Rx#:[id number] 0.9 % Sodium Chloride 1000ML 1, 775 / 775 000 ml @ 150 mls/hr IV .Q6H40M [facility] Rx#:[id number] Infusion Intake 1166 / 1166 0.9 % Sodium Chloride 1000ML 1, 1166 / 1166 000 ml @ 150 mls/hr IV .Q6H40M [facility] Rx#:[id number] Output: Output, Urine Amount 2200 / 2201 0 Other: Number of Unmeasured Voids 0 1 1 Number of Bowel Movements 1 1 Weight 48.852 kg Patient Weight 06/16/22 23:59 Weight 48.852 kg Laboratory Results - last 24 hr 06/13/22 03:50: Urine Calcium 56.6 06/15/22 18:00: Sodium 147 H, Potassium 4.1 D, Chloride 121 H, Carbon Dioxide 18 L, Anion Gap 12.1, BUN 29 H, Creatinine 1.80 H, Estimated Creat Clear 24, Estimated GFR 28 L, Est GFR ( Amer) 34 L, Glucose 54 L, Calcium 12.2 H*, Total Bilirubin 0.3, AST 69 H D, ALT 16, Alkaline Phosphatase 148 H, Total Protein 6.2 L, Albumin 2.9 L, Globulin 3.3 H, Albumin/Globulin Ratio 0.9 L 06/16/22 07:12: WBC 18.4 H, RBC 2.64 L, Hgb 7.0 L, Hct 22.6 L, MCV 85.4, MCH 26.4 L, MCHC 30.9 L, RDW 17.9 H, Plt Count 241, MPV 8.3, Neut % (Auto) 88.3 H, Lymph % (Auto) 5.1 L, [place] % (Auto) 2.9, Eos % (Auto) 3.4, Baso % (Auto) 0.2, Neut # (Auto) 16.2 H, Lymph # (Auto) 1.0, [place] # (Auto) 0.5, Eos # (Auto) 0.6 H, Baso # (Auto) 0.0, Total Counted 100, Neutrophils % (Manual) 94 H, Lymphocytes % (Manual) 4 L, Monocytes % (Manual) 1 L, Eosinophils % (Manual) 1, Platelet Estimate Normal, RBC Morphology Normal 06/16/22 07:12: Sodium 148 H, Potassium 3.4 L, Chloride 124 H, Carbon Dioxide 19 L, Anion Gap 8.4, BUN 30 H, Creatinine 1.90 H, Estimated Creat Clear 22, Estimated GFR 26 L, Est GFR ( Amer) 32 L, Glucose 75 D, Calcium 12.1 H, Phosphorus 3.1, Total Bilirubin 0.3, AST 75 H, ALT 15, Alkaline Phosphatase 159 H, Total Protein 6.4, Albumin 3.0 L, Globulin 3.4 H, Albumin/Globulin Ratio 0.9 L I & O for Labs for Last 24 Hours: Intake & Output 06/13/22 06/14/22 06/15/22 06/16/22 23:59 23:59 23:59 23:59 Intake Total 851 / 851 2552 / 2552 1166 / 1941 1450 / 1450 Output Total 1700 / 1700 2550 / 2550 2201 / 2201 Balance -849 / -849 -1035 / -260 1449 / 1449 Weight 50 kg 50 kg 50.938 kg 48.852 kg Constitutional: Present no acute distress, thin, chronically ill appearing and cooperative Comment:: more awake, improved speech Head: Present atraumatic and normocephalic ENT: Present normal exam Comment:: poor dentition Neck: Present normal inspection Respiratory: Present normal respiratory effort; Absent accessory muscle use, rhonchi, wheezes or crackles Cardiac: Present Reg Rate and Rhythm GI: Present soft, tenderness (diffuse, non-focal) and normal bowel sounds Comment:: hematuria Extremities: P
--- NOTE | 2022-06-16 12:44 | PC.NURSE ---
ATRIAL FLUTTER NOTED ON TELEMETRY WITH HR >110. 5MG METOPROLOL IV GIVEN PER MAY. PT HR DECREASED TO 90'S BUT PT STILL APPEARED TO BE IN AN ATRIAL FLUTTER RYTHYHM. DR GILBERT MADE AWARE OF PT CONDITION. V/O FOR AN ADDITIONAL 5MG IV METOPROLOL ORDERED TO BE GIVEN NOW.
--- NOTE | 2022-06-16 14:34 | P.EN_ITS ---
Advance care planning note: Active diagnosis: Metastatic lung cancer, recurrent UTI, hypercalcemia of malignancy The patient's active diagnoses are of sufficient risk that focused discussion on advanced care planning is indicated in order to allow the patient to thoughtfully consider personal goals of care; and, if situations arise that prevent the ability to personally give input, to ensure appropriate representation of their personal desires through documentation or informed surrogate decision makers. Discussion: Via phone Persons present and participating in discussion: Patient's son and next of kin Cali Florentino Discussion: Discussed patient's cancer, diagnosis and treatment over a year ago with lobectomy, chemo, radiation. Recurrence of her cancer with new lesion in her lung and lesion on her kidney. Recurrent hypercalcemia. Concerned that she has no curative treatment options. Any treatment moving forward would be palliative given the metastatic nature of her cancer. Son inquired about intermediate setting at discharge. Inquired about how much time she has, prognosis. Discussed potential treatment options and prognosis of weeks to months. Family not ready to consider hospice at this time however understanding of the severity of her current illness. Time spent: Total time spent [id number] in education and discussion directly related to advance care plannin minutes Wilbur Burger MD 06/16/2022 14:10-14:30
--- NOTE | 2022-06-16 18:46 | PC.NURSE ---
1 UNIT PRC'S TRANSFUSED THIS SHIFT TOLERATED WELL. SHE HAS BECOME MORE ALERT THIS AFTERNOON BUT IS STILL GENERALLY CONFUSED. WAS ABLE TO TOLERATE PO INTAKE WELL. NOT COUGHING OR SIGNS OF ASPIRATION WITH FOOD. 2LNC FOR O2 SUPPORT.
[2022-06-16 22:23] LABS: Hematocrit 26.3 % (37.0-47.0)
[2022-06-16 22:31] LABS: Chloride 119 mmol/L (98-107); Sodium 146 mmol/L (136-145)
[2022-06-16 22:33] LABS: Blood Urea Nitrogen 29 mg/dl (7-17); Creatinine Clearance Estimated 19 mL/min (50-200); Estimated Glomerular Filt Rate 23 ml/min (>60); GFR (African American) 28 ML/MIN (>60)
[2022-06-16 22:34] LABS: Alanine Aminotransferase 17 U/L (12-78); Albumin Level 3.1 g/dl (3.5-5.0); Albumin/Globulin Ratio 0.9 (1.1-1.8); Alkaline Phosphatase 174 U/L (38-126); Anion Gap 7.8 mEq/L (5-15); Aspartate Amino Transferase 62 U/L (14-36); Bilirubin,Total 0.4 mg/dl (0.2-1.3); Calcium 11.1 mg/dl (8.4-10.2); Carbon Dioxide 22 mmol/L (22.0-30.0); Globulin 3.6 g/dL (1.3-3.2); Glucose 114 mg/dl (74-100); Total Protein,Serum 6.7 g/dl (6.3-8.2)
[2022-06-16 22:37] LABS: Potassium 2.8 mmoL/L (3.5-5.1)
[2022-06-16 22:38] LABS: Hemoglobin 8.3 g/dL (12.2-16.2)
[2022-06-17] VITALS (12 sets, daily range): BP systolic 104–131; BP diastolic 62–79; PULSE 75–111; RESP 17–20; TEMP 36.5–36.8; O2SAT 91–100; BMI 17.2
--- NOTE | 2022-06-17 05:30 | PC.NURSE ---
NO ACUTE CHANGES SINCE PREVIOUS ASSESSMENT. REMAINS ON 2L NASAL CANNULA AND IS TOLERATING WELL. PT REMAINS ORIENTED TO PERSON ONLY. VSS. HAS SLEPT WELL THIS SHIFT. BED ALARM IN PLACE FOR PT SAFETY.
[2022-06-17 06:42] LABS: Chloride 122 mmol/L (98-107)
[2022-06-17 06:43] LABS: Potassium 3.2 mmoL/L (3.5-5.1); Sodium 145 mmol/L (136-145)
[2022-06-17 06:45] LABS: Alanine Aminotransferase 16 U/L (12-78); Alkaline Phosphatase 157 U/L (38-126); Anion Gap 10.2 mEq/L (5-15); Aspartate Amino Transferase 50 U/L (14-36); Bilirubin,Total 0.4 mg/dl (0.2-1.3); Blood Urea Nitrogen 28 mg/dl (7-17); Carbon Dioxide 16 mmol/L (22.0-30.0); Creatinine Clearance Estimated 23 mL/min (50-200); Estimated Glomerular Filt Rate 30 ml/min (>60); GFR (African American) 36 ML/MIN (>60); Phosphorous 2.1 mg/dl (2.5-4.5)
[2022-06-17 06:46] LABS: Albumin Level 2.7 g/dl (3.5-5.0); Albumin/Globulin Ratio 0.8 (1.1-1.8); Calcium 10.6 mg/dl (8.4-10.2); Globulin 3.3 g/dL (1.3-3.2); Glucose 120 mg/dl (74-100)
[2022-06-17 07:03] LABS: Basophils # 0.1 K/mm3 (0-0.2); Basophils % 0.3 % (0.1-2.0); Eosinophils # 1.8 K/mm3 (0.0-0.4); Hematocrit 26.1 % (37.0-47.0); Hemoglobin 7.9 g/dL (12.2-16.2); Lymphocytes # 0.9 K/mm3 (0.7-4.5); Lymphocytes % 5.1 % (10-50); Mean Corpuscular HGB Conc 30.1 g/dL (31.8-35.4); Mean Corpuscular Hemoglobin 26.7 pg (27.0-31.2); Mean Corpuscular Volume 88.5 fl (81-99); Mean Platelet Volume 7.4 fl (7.4-10.4); Monocytes # 0.6 K/mm3 (0.1-1.0); Monocytes % 3.3 % (1.7-9.3); Neutrophils # 14.3 K/mm3 (1.8-7.8); Neutrophils % 81.4 % (37.0-80.0); Platelet Count 175 K/mm3 (142-424); Red Blood Count 2.95 M/mm3 (4.20-5.40); Red Cell Distribution Width 16.7 % (11.5-17.5); White Blood Count 17.6 K/mm3 (4.8-10.8)
[2022-06-17 07:36] LABS: MANUAL DIFFERENTIAL MANUAL DIFFERENTIAL (MANUAL DIFF)
[2022-06-17 07:48] LABS: Eosinophils % 1 % (0-3); Lymphocytes % 4 % (10-50); Monocytes % 4 % (2-9); Neutrophils % 91 % (42-76); Platelet Estimate Normal; RBC Morphology Normal; Total Cells Counted 100
--- NOTE | 2022-06-17 08:49 | HMH.SLDYSPHA ---
Speech & Language Evaluation Speech/Language Dysphagia Evaluation Start: 06/17/22 08:39 Freq: ONCE Status: Active Protocol: Document 06/17/22 08:39 MADDIE (Rec: 06/17/22 08:49 VICENTAPERFECTOREED [id number]) Dysphagia Assess/Goals/Plan Assessment Date of Evaluation: 06/17/22 Evaluation Type Initial Certification Assessment/Problems CSE completed per MD order following c/o aspiration risk. Does Patient Qualify for Service No Qualify/Failure Comment Based on CSE results and clinical observation, swallowing and mastication are WFL, skilled speech therapy services are not warranted at this time. Recommendations PHYSICIAN CERTIFICATION: The specified therapy services are required, authorized, and reviewed every 30 days. Diet Recommendations Mechanical Soft Liquid Type Recommendations Normal/Thin SL Swallow Guidelines Alt bite w/sip thru meal, Standard Aspiration Prec., Crush meds as allowed*,Eat at slow rate Crush Meds Crush all meds Dysphagia Swallow Precautions/Strategies Sitting Upright (90 deg),Small Bites and Sips,Alternate Liquids/Solids Place Food on Either side of Mouth Plan Pt/Guardian verbally ack understanding Yes of dx/prognosis/goals G -code Required No Education Instructions provided Discussed diet recommendations , CSE results, and aspiration precautions with pt, nursing, and care management all of which expressed understanding. Pt/Caregiver able to recall information Able to recall/restate Reinforcement needed No Speech & Language HPI History Present Illness Description of Patient Problem Ms. Florentino is a 67-year-old female with a past medical history of CKD Stage IV, History of Squamous Cell Lung Cancer s/p Lobectomy in 07/2021 and follow-up with Radiation and Chemotherapy, history of PE on chronic anticoagulation, Chronic Tobacco Abuse and COPD. Pt presented at [facility] via EMS due to acute onset of confusion. In the ER, pt was unable to answer any subjective questioning, per
--- NOTE | 2022-06-17 09:12 | HMH.OTEV ---
OT Inpatient Evaluation Rehab OT IP Evaluation Start: 06/16/22 09:01 Freq: ONCE Status: Active Protocol: Document 06/17/22 09:07 KOJO (Rec: 06/17/22 09:12 [facility] [id number]) Rehab OT IP Assessment Subjective History Pt oriented to person. Pt not oriented to birthday or place . Pt was admitted on 06/13/22 due to confusion and hypercalcemia. Prior to being in the hospital, pt lived at home alone. Pt claimed she was independent with all ADLs and IADLs. She did not drive. She did not use any type of AE during ambulation. However , due to patients continued confusion information provided may not be trustworthy. 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 Objective Patient Orientation Person Upper Extremity Gross ROM Min Limitation <25% Shoulder ROM Limitations Muscle Weakness Elbow ROM Limitations Muscle Weakness Wrist Limitations of Range of Motion Muscle Weakness Bed Mobility bed mobility-scooting,bed mobility - supine/sit,bed mobility - rolling Assist Level Minimal x 1 (25% assist) Transfer Training Sit/Stand Transfer Assist Level Minimal x 1 (25% assist) Chair Transfer Ability Minimal x 1 (25% assist) Chair Transfer Technique Stand Step Pivot Lower Body Dressing Ability
--- NOTE | 2022-06-17 10:02 | EXP.ACUTE.PN ---
Subjective *Date: 06/17/22 *Time: 10:02 Interval history: No acute events overnight. Patient oriented to self today. More interactive and talkative. Working with therapy on rounds. Stable on room air. No fevers overnight. No nausea or vomiting. Tolerating p.o. intake. Medical Exam Vital signs and Labs for Last 24 Hours: Vital Signs Temp Pulse Pulse Resp BP BP Pulse Ox 06/17/22 07:41 97.7 F 89 18 117/64 97 06/17/22 06:47 91 L 06/17/22 04:00 97.7 F 81 20 114/64 96 06/17/22 04:00 90 06/17/22 00:00 100 H 06/16/22 23:53 98.0 F 85 20 124/83 99 06/16/22 20:00 100 H 06/16/22 19:53 98.1 F 94 H 20 142/76 H 100 06/16/22 19:15 98.1 F 92 H 16 138/76 98 06/16/22 18:15 98.6 F 94 H 16 130/64 100 06/16/22 17:15 98 F 95 H 16 128/68 99 06/16/22 17:00 98.4 F 93 H 16 137/72 99 06/16/22 16:45 98.5 F 97 H 16 120/74 97 06/16/22 16:30 98.1 F 91 H 16 130/73 98 06/16/22 16:25 98.3 F 99 H 16 131/69 99 06/16/22 16:20 98.1 F 95 H 16 126/66 99 06/16/22 17:51 95 06/16/22 16:00 98 H 06/16/22 12:00 97 H 06/16/22 16:15 98.3 F 94 H 16 118/69 100 06/16/22 16:12 98.3 F 96 H 16 118/65 100 06/16/22 16:00 98.0 F 99 H 17 130/34 L 99 06/16/22 11:39 98.7 F 87 17 122/71 99 Intake and Output 06/16/22 06/17/22 06/17/22 23:59 07:59 15:59 Intake Total 756 / 2446 240 / 480 240 / 480 Output Total 500 / 651 0 / 0 0 / 0 Balance 256 / 1795 240 / 480 240 / 480 Intake: Intake, Oral Amount 120 / 480 240 / 480 240 / 480 Infusion Intake 636 / 636 0.9 % Sodium Chloride 1000ML 1, 636 / 636 000 ml @ 75 mls/hr IV .[id number] [facility] Rx#:[id number] Intake (Blood Product) Amt 0 / 0 Red Blood Cells Unit 0 / 0 [id number] Output: Output, Urine Amount 500 / 651 0 / 0 0 / 0 Other: Number of Unmeasured Voids 1 1 1 Number of Bowel Movements 1 1 1 Weight 46.8 kg Patient Weight 06/17/22 23:59 Weight 46.8 kg Laboratory Results - last 24 hr 06/13/22 03:50: Urine Calcium 56.6 06/16/22 10:40: Blood Type O Negative, Antibody Screen Negative, Crossmatch (AHG) See Detail 06/16/22 22:15: Sodium 146 H, Potassium 2.8 L*, Chloride 119 H, Carbon Dioxide 22, Anion Gap 7.8, BUN 29 H, Creatinine 2.10 H, Estimated Creat Clear 19, Estimated GFR 23 L, Est GFR ( Amer) 28 L, Glucose 114 H D, Calcium 11.1 H, Total Bilirubin 0.4, AST 62 H, ALT 17, Alkaline Phosphatase 174 H, Total Protein 6.7, Albumin 3.1 L, Globulin 3.6 H, Albumin/Globulin Ratio 0.9 L 06/16/22 22:15: Hgb 8.3 L D, Hct 26.3 L 06/17/22 06:10: WBC 17.6 H, RBC 2.95 L, Hgb 7.9 L, Hct 26.1 L, MCV 88.5, MCH 26.7 L, MCHC 30.1 L, RDW 16.7, Plt Count 175 D, MPV 7.4, Neut % (Auto) 81.4 H, Lymph % (Auto) 5.1 L, [place] % (Auto) 3.3, Eos % (Auto) 10.0, Baso % (Auto) 0.3, Neut # (Auto) 14.3 H, Lymph # (Auto) 0.9, [place] # (Auto) 0.6, Eos # (Auto) 1.8 H, Baso # (Auto) 0.1, Total Counted 100, Neutrophils % (Manual) 91 H, Lymphocytes % (Manual) 4 L, Monocytes % (Manual) 4, Eosinophils % (Manual) 1, Platelet Estimate Normal, RBC Morphology Normal 06/17/22 06:10: Sodium 145, Potassium 3.2 L, Chloride 122 H, Carbon Dioxide 16 L, Anion Gap 10.2, BUN 28 H, Creatinine 1.70 H, Estimated Creat Clear 23, Estimated GFR 30 L, Est GFR ( Amer) 36 L D, Glucose 120 H, Calcium 10.6 H, Phosphorus 2.1 L D, Total Bilirubin 0.4, AST 50 H, ALT 16, Alkaline Phosphatase 157 H, Total Protein 6.0 L, Albumin 2.7 L D, Globulin 3.3 H, Albumin/Globulin Ratio 0.8 L I & O for Labs for Last 24 Hours: Intake & Output 06/14/22 06/15/22 06/16/22 06/17/22 23:59 23:59 23:59 23:59 Intake Total 2552 / 2552 1166 / 1941 2446 / 2446 480 / 480 Output Total 2550 / 2550 2201 / 2201 651 / 651 0 / 0 Balance 2 / 2 -1035 / -260 1795 / 1795 480 / 480 Weight 50 kg 50.938 kg 48.852 kg 46.8 kg Microbiology Reports for the Last 24 Hours: Microbiology
--- NOTE | 2022-06-17 10:27 | HMH.PTEV ---
Physical Therapy Evaluation Rehab PT IP Evaluation Start: 06/16/22 09:00 Freq: ONCE Status: Active Protocol: Document 06/17/22 09:15 PHORVIVIANE (Rec: 06/17/22 10:27 PHORNE [id number]) Subjective/History History History 67 yowf adm to [facility] with hypercalcemia and AMS. She has significant hx of lung cancer with prior lobectomy, chemo, and XRT. She also has had recurrence of her lung cancer with mets to kidneys. She presents this am with anemia as well with Hgb 7.9. She reports she lives alone, 1-2 steps to enter the home and she is generally independent with all mobility without an AD. She remains somewhat confused at times. Subjective Subjective Currently she reports feeling tired and weak, agees to mobility assessment. Rehab PT IP Eval Objective Appearance Patient Behavior Appropriate,Confused Patient Orientation Person,Name,Birthday Difficulty following instructions none Speech Pattern Clear Ambulation Patient Able to Ambulate Yes Ambulation Observation IP General Gait Pattern Observation Shuffling Step Ambulation Distance (feet) 5 Ambulation Assistive Device None Ambulation Ability Minimal x 1 (25% assist) Balance Ability to Arise Able, uses arms to help Sitting Balance Steady, safe Standing Balance Steady, wide stance Dynamic Sitting Balance Ability Good Dynamic Standing Balance Ability Fair Transfers Bed Transfer Ability Minimal x 1 (25% assist) Chair Transfer Ability Minimal x 1 (25% assist) Sit to Stand Bed Transfer Ability Minimal x 1 (25% assist) Sit to Stand Chair Transfer Ability Minimal x 1 (25% assist) Rehab PT IP prob,goals,plan Problems Date of Evaluation: 06/17/22 PT IP Problems Bed Mobility,Transfers,Gait Rehab Potential Rehab Potential Good Plan PT Intervention Plan Bed Mobility,Transfers,Gait, Therapeutic Exercise PT Plan Frequency BID Duration LOS Discharge Goals Bed Transfer Ability Contact Guard/Hand Hold Sit to Stand Chair Transfer Ability Contact Guard/Hand Hold Ambulation Assistive Device Rolling Walker Ambulation Distance (feet) 20 Discharge Plan PT Discharge Plan Pt is currently most
--- NOTE | 2022-06-17 12:03 | CARE MANAGER ---
Addendum entered by Brittanie Ureña RN 06/17/22 15:44: [facility] is unable to accept patient. Faxed to [place]. No word from [facility] yet. Original Note: Patient needs rehab at a SNF per PT/OT evaluation. Verbal consent from sonCali for SNF placement. Would prefer [facility] at this time. Referral faxed to [facility] and [facility]. CM will continue to follow for discharge planning needs.
--- NOTE | 2022-06-17 16:41 | PC.NURSE ---
Patient oriented to self. Cooperative but impulsive. Up with 1 to BR and chair. Continued hematuria. VSS. On room air. Currently waiting placement for inpatient rehab
--- NOTE | 2022-06-17 17:48 | PC.NURSE ---
Attempted to change site of patient's IVs. Patient became agitated and refused attempts. Education provided regarding importance of changing IVs that have been in place for extended periods of time. Patient continued to refuse. IV's patent and sites WDL. Will continue to encourage patient to allow site change
--- NOTE | 2022-06-17 20:26 | PC.NURSE ---
BHAVYA Rucker got pt back to bed from chair
--- NOTE | 2022-06-17 20:30 | PC.NURSE ---
per pt request, pt back up to chair with assistance from BHAVYA Rucker
--- NOTE | 2022-06-17 21:27 | PC.NURSE ---
Patient very restless, bed exit going off frequently. Patient ambulated with assist 1 1/2 times around the unit. Tolerated well.
--- NOTE | 2022-06-17 23:24 | CT_ITS ---
PROCEDURE INFORMATION: Exam: CT Head Without Contrast Exam date and time: 06/17/2022 11:23 PM Age: 67 years old Clinical indication: Injury or trauma; Fall TECHNIQUE: Imaging protocol: Computed tomography of the head without contrast. Radiation optimization: All CT scans at this facility use at least one of these dose optimization techniques: automated exposure control; mA and/or kV adjustment per patient size (includes targeted exams where dose is matched to clinical indication); or iterative reconstruction. REPORTING DATA: Count of CT and Cardiac NM exams in prior 12 months: This patient has received 5 known CTs and 0 known cardiac nuclear medicine studies in the 12 months prior to the current study. COMPARISON: CT HEAD/BRAIN WO CON 13/06/2022 04:20 FINDINGS: Brain: Small focus of extra-axial blood along the medial aspect of the right frontal lobe. No associated mass effect. Mild to moderate chronic brain volume loss and chronic small vessel ischemic changes. Cerebral ventricles: No ventriculomegaly. Paranasal sinuses: Visualized sinuses are unremarkable. No fluid levels. Mastoid air cells: Visualized mastoid air cells are well aerated. Orbital cavities: Status post left cataract surgery. Bones/joints: Unremarkable. No acute fracture. Soft tissues: Unremarkable. IMPRESSION: Small focus of extra-axial blood along the medial aspect of the right frontal lobe. No associated mass effect.
[2022-06-18] VITALS: BP 109/60; PULSE 98; RESP 16; TEMP 36.8; O2SAT 97
--- NOTE | 2022-06-18 01:02 | PC.NURSE ---
PT LEFT FLOOR WITH EMS AT THIS TIME.
--- NOTE | 2022-06-18 01:18 | EXP.DC.SUM ---
General Admission date:: 06/13/22 HPI HPI HPI: Ms. Florentino is a 67-year-old female with a past medical history of CKD Stage IV, History of Squamous Cell Lung Cancer s/p Lobectomy in 07/2021 and follow-up with Radiation and Chemotherapy, history of PE on chronic anticoagulation, Chronic Tobacco Abuse and COPD. [facility] due to acute onset of confusion. She was seen in the ER, but is unable to answer any subjective questioning, per records reviewed a medical alarm went off and EMS was called out to her home. Initial concern for was stroke she was noted to have left sided facial droop, garbled speech and was slow to respond. In the ER, work-up consisted of a CT of the head without contrast which showed no acute intracranial abnormality, CBC showed a leukocytosis with WBC 19K, a microcytic anemia with hgb 9.5, Creatinine was elevated close to patient's most recent baseline at 2.10. Calcium was elevated at 16.2, albumin is 3.8. Calcium corrected for albumin is 16.4. The patient underwent a CT of the abdomen and pelvis that showed multiple nodules throughout the lung and enlargment of a renal cell mass up to 5 cm in size concerning for worsening metastatic disease. In the ER the patient was placed on isotonic saline and given lasix. Due to the severity of the patient's calcium level along with her symptoms she will be continued on isotonic saline and given subcutenous calcitonin. A repeat BMP will be obtained in 4 hours. The patient will be monitored on the step-down unit. Hospital Course Hospital Course Hospital Course: 67-year-old female with past medical history of squamous cell lung cancer s/p lobectomy and chemo and radiation, CKD stage IV, history of PE on chronic anticoagulation, COPD presents due to acute onset of confusion, slow responses and garbled speech - Acute Encephalopathy -Hypercalcemia Calcium level 16.2 on admission, improving.? 10.6 (11.6 corrected) today. PTH 8.9, within normal limits Still pending: Vitamin D, ionized calcium, urinary calcium DC IVF today and Lasix 20 mg daily 1 dose of zoledronic acid 5 mg IV x1 06/15.? Consider second dose in 7 days Repeat monitoring every [address] with findings concerning for malignancy Holding patient's medications that can cause sedation Hematuria - new, holding Eliquis in setting of hematuria.? Similar episode last visit, responded well to holding of anticoagulation.? Concern for secondary to renal mass Fever and new oxygen requirement Leukocytosis -On room air today. -White cell count improved to 17.6 -Continue empiric ceftriaxone dose, 1 g daily -Urine culture running on urine obtained at admission. -Further management pending culture results - Lung Nodules With history of Squamous Cell Lung Cancer S/p Lobectomy and chemotherapy and radiation New findings since previous CT Follows with per notes - Renal Mass: Concerning for malignancy - Hypothyroidism: Continue Home Levothyroxine - Pulmonary Embolism: holding home DOAC due to anemia on the evening of 06/17/2022 patient was noted to have ground-level fall with complaints of head pain. Stat CT was obtained and notable for small focus of extra-axial blood along the medial aspect of the right frontal lobe without mass effect or midline shift. Given no neurological services here at this facility, was consulted for transfer. Patient has had previous admissions therefore lengthy medical history. Patient accepted by Dr. Castillo. At the time of transfer patient is encephalopathic but similar to patient's presentation today. Moving all extremities, foreign language interpreter strength equal, pupils equal round and reactive. Son, Cali Florentino was notified of patient's status and is in agreement with transfer to . At the time of transfer, in stable condition Case discussed with [employer], aree with care plan as documented. Exam Data for Last 24 hours Vital signs and Labs for Last 24 Hours: Temp Pulse
--- NOTE | 2022-06-18 01:37 | P.PN_ITS ---
Subjective *Date: 06/18/22 *Time: 01:37 Exam Data for Last 24 hours Vital signs and Labs for Last 24 Hours: Temp Pulse Resp BP Pulse Ox 98.3 F 98 H 16 109/60 L 97 06/18/22 00:00 06/18/22 00:00 06/18/22 00:00 06/18/22 00:00 06/18/22 00:00 Laboratory Results - last 24 hr 06/17/22 06:10: WBC 17.6 H, RBC 2.95 L, Hgb 7.9 L, Hct 26.1 L, MCV 88.5, MCH 26.7 L, MCHC 30.1 L, RDW 16.7, Plt Count 175 D, MPV 7.4, Neut % (Auto) 81.4 H, Lymph % (Auto) 5.1 L, [place] % (Auto) 3.3, Eos % (Auto) 10.0, Baso % (Auto) 0.3, Neut # (Auto) 14.3 H, Lymph # (Auto) 0.9, [place] # (Auto) 0.6, Eos # (Auto) 1.8 H, Baso # (Auto) 0.1, Total Counted 100, Neutrophils % (Manual) 91 H, Lymphocytes % (Manual) 4 L, Monocytes % (Manual) 4, Eosinophils % (Manual) 1, Platelet Estimate Normal, RBC Morphology Normal 06/17/22 06:10: Sodium 145, Potassium 3.2 L, Chloride 122 H, Carbon Dioxide 16 L , Anion Gap 10.2, BUN 28 H, Creatinine 1.70 H, Estimated Creat Clear 23, Estimated GFR 30 L, Est GFR ( Amer) 36 L D, Glucose 120 H, Calcium 10.6 H , Phosphorus 2.1 L D, Total Bilirubin 0.4, AST 50 H, ALT 16, Alkaline Phosphatase 157 H, Total Protein 6.0 L, Albumin 2.7 L D, Globulin 3.3 H, Albumin/Globulin Ratio 0.8 L I & O for Last 24 hours: Intake & Output 06/15/22 06/16/22 06/17/22 06/18/22 23:59 23:59 23:59 23:59 Intake Total 1166 / 1941 2446 / 2446 1070 / 1070 Output Total 2201 / 2201 651 / 651 200 / 200 Balance -1035 / -260 1795 / 1795 870 / 870 Weight 50.938 kg 48.852 kg 46.8 kg Microbiology Reports for the Last 24 Hours: Microbiology 06/15/22 22:15 Urine,Catheterized Urine Culture - Final NO GROWTH AFTER 48 HOURS Assessment and Plan *Assessment and plan Plan Ms. Florentino is a 67 year old female with a past medical history of
--- NOTE | 2022-06-18 01:45 | PC.NURSE ---
at 2200 heard bed alarm from pt room, upon entering the room observed pt. lying on back on floor beside bed. pt complained of pain of the back of head. assessed pt. head, no visible wound or bruising noted, pt at baseline mentation, notified MOI Leiva, MOI Leiva ordered CT scan and q4 neurochecks.
[2022-06-23 18:09] LABS: 1,25 Dihydroxy Vitamin D 44 pg/mL (.); 1,25-Dihydroxy, Vitamin D-2 <10 pg/mL (.); 1,25-Dihydroxy, Vitamin D-3 41 pg/mL (.)
== END 2022-06-18 01:00 | disposition short-term general hospital (02) | DRG 640 ==
LOC: ER 04:15 → 2ND 06:09
PROVIDERS: Nurse Practitioner Family; Student in an Organized Health Care Education/Training Program; Admitting Provider Internal Medicine Adolescent Medicine; Emergency Provider Emergency Medicine; PCP Emergency Medicine; Visit Provider Internal Medicine Adolescent Medicine
DX: G93.41 Metabolic encephalopathy (principal); C34.90 Malignant neoplasm of unspecified part of unspecified bronchus or lung; E83.52 Hypercalcemia; N18.4 Chronic kidney disease, stage 4 (severe); N39.0 Urinary tract infection, site not specified; C79.9 Secondary malignant neoplasm of unspecified site; E03.9 Hypothyroidism, unspecified; N28.89 Other specified disorders of kidney and ureter; F32.9 Major depressive disorder, single episode, unspecified; Z86.711 Personal history of pulmonary embolism; J44.9 Chronic obstructive pulmonary disease, unspecified; Z79.01 Long term (current) use of anticoagulants; K21.9 Gastro-esophageal reflux disease without esophagitis; Z87.891 Personal history of nicotine dependence; R31.9 Hematuria, unspecified; W19.XXXA Unspecified fall, initial encounter; S06.300A Unspecified focal traumatic brain injury without loss of consciousness, initial encounter
CPT/HCPCS: 36415; 51702; 70450; 71045; 74176; 80048; 80053; 81001; 82310; 82330; 82340; 82652; 82803; 83605; 83735; 83970; 84100; 84484; 85007; 85014; 85018; 85025; 85048; 85049; 86850; 87040; 87086; 92610; 93005; 94640; 94761; 97162; 97166; 97530; 99285; C9803; J0630; J0696; J3489; P9016; U0003; U0005